=== PATIENT | female | born 1970 | race African-American/Black ===

== ENCOUNTER 2018-06-03 01:32 | Inpatient (IN) | payer OTHER ==
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
[~2018-06-03] VITALS: Ht 165.1 cm; Wt 98.0 kg
[~2018-06-03 01:32] MED LIST: TYLENOL ER PO; VENTOLIN HFA18 GM INH
--- NOTE | 2018-06-03 10:03 | Operative Report ---
Operative/Inv Procedure Report Surgery Date: 06/03/18 Name of Procedure: Anterior cervical C5 6 C6 7 discectomy. Interbody fusion with interdiscal cage and autologous iliac crest bone graft. Anterior plate fusion C5 to C7. Harvesting left anterior iliac crest structural bone graft. Reconstruction of graft site with Master graft. Use of fluoroscopy. Pre-Operative Diagnosis: HNP C5 6 C6 7 with degenerative disc disease. Post-Operative Diagnosis: Same osteoporosis. Estimated Blood Loss: scant Surgeon/Senior Technical Editor: Demetrius CURTIS,Mayela Villegas Anesthesia: general endotracheal tube Operative/Procedure Note Note: After adequate general anesthesia was achieved the patient was placed in the supine position with the head turned to the left and the shoulders taped to the side. The left anterior iliac crest and right side of the neck were sterilely prepped and draped. An incision was made in line with the skin crease and carried sharply through the platysma. A blunt dissection was carried medial to the neurovascular bundle lateral to the visceral structures the esophagus was identified in the deep retractors were placed. A bent needle was placed within the C5 6 disc space and fluoroscopy was used to identify surgical level. There was bone spurring consistent with severe degenerative disc disease. The high- speed bur was used to debride the bone spurs the disc was entered sharply with the scalpel and debrided with the curettes and Kerrisons. The disc retractor was placed during discectomy at each level the dissection was carried through the annulus and posterior longitudinal ligament degenerative encroaching disc and bone and soft tissue was debrided of the nerve roots on the right side which was the symptomatic side at both levels. Scissures made over the left anterior iliac crest a subperiosteal dissection was carried medial and lateral to the crest and the oscillating saw was used to collect 2 Quintero-Jones tricortical grafts. The endplates of the C5 6 and C6 7 vertebral were debrided with the high-speed bur and irrigation trials were used and 7 mm cage was selected cages were packed with iliac crest bone graft and tamped into position well away from the neural canal. An anterior plate was applied with reasonable purchase and all 6 screws which were checked in AP and lateral plane with fluoroscopy found to be appropriate and locked. During harvesting of the bone graft osteoporosis was identified. The wound was irrigated a closure the platysma was performed with absorbable suture as was the skin with subcuticular absorbable suture after which sterile dressings were applied and a cervical collar.
--- NOTE | 2018-06-03 11:03 | Patient Discharge Instructions ---
Acute Coronary Syndrome Inclusion Criteria At DC or during hospital stay patient has or had the following: ACS DIAGNOSIS No Discharge Core Measures Meds if any: Prescribed or Continued at Discharge Meds if any: NOT Prescribed or Continued at Discharge Congestive Heart Failure Inclusion Criteria At DC or during hospital stay patient has or had the following: CHF DIAGNOSIS No Discharge Core Measures Meds if any: Prescribed or Continued at Discharge Meds if any: NOT Prescribed or Continued at Discharge Cerebrovascular accident Inclusion Criteria At DC or during hospital stay patient has or had the following: CVA/TIA Diagnosis No Discharge Core Measures Meds if any: Prescribed or Continued at Discharge Meds if any: NOT Prescribed or Continued at Discharge Venous thromboembolism Inclusion Criteria VTE Diagnosis No VTE Type NONE VTE Confirmed by (Test) NONE Discharge Core Measures - Per Current guidelines, there needs to be overlap - treatment for the first 5 days of Warfarin therapy. - If discharged on Warfarin prior to 5 days of - overlap therapy, the patient will need to be - assessed for post discharge needs including - *Post discharge parental anticoagulation - *Warfarin and/or parental anticoagulation education - *Follow up date to check INR post discharge At least 5 days overlap therapy as Inpatient No Meds if any: Prescribed or Continued at Discharge Note: Overlap Therapy is Warfarin and Anticoagulant Meds if any: NOT Prescribed or Continued at Discharge
[2018-06-03] MEDS ORDERED: MILK OF MA400 MG/52 PO (11:07)
[2018-06-03] MEDS ORDERED: OS-CAL 500+D31 EAC1 PO (11:07)
[2018-06-03] MEDS ORDERED: MULTIVITAMINS1 EAC9 PO (11:07)
[2018-06-03] MEDS ORDERED: DULCOLAX10 M1 RC (11:07)
[2018-06-03] MEDS ORDERED: COLACE100 M1 PO (11:07)
[2018-06-03] MEDS ORDERED: VITAMIN D31000 UNI2 PO (11:07)
[2018-06-03] MEDS ORDERED: TYLENOL EXTRA500 M2 PO (11:07)
[2018-06-03] MEDS ORDERED: PERCOCET 5-3251 EACH PO (11:07)
[2018-06-03 14:00] VITALS: BP 132/92
--- NOTE | 2018-06-03 14:36 | RADIOLOGY REPORT ---
EXAMINATION: FLUOROSCOPY CERVICAL SPINE IN OPERATING ROOM. CLINICAL INFORMATION: Anterior cervical disc C5-C7 fusion. COMPARISON: MRI of the cervical spine 06/02/2018. TECHNIQUE: Fluoroscopy was provided in the operating room. Intraoperative spot views were obtained of the cervical spine in AP, oblique, and lateral projections. NUMBER OF FLUOROSCOPIC IMAGES: 4 images. FLUOROSCOPY TIME: 0.1 minutes. DOSE: 5.12 mGy; 0.166 mGym2 FINDINGS AND IMPRESSION: There is a needle probe on the second spot view projected at the anterior margin of the C5-C6 interspace. The next 2 films demonstrate an anterior plate and screws fusing C5-C7.
--- NOTE | 2018-06-03 15:06 | PN- Student ---
Claribel Chavira 06/03/18 8664: Subjective Subjective: Pt is complaining of a sore throat and the urge to cough without being able to. She is able to swallow well and has not had any new medications or foods that she is aware of. She is in mild pain at the moment but is doing well. She has gotten out of bed and walked a few steps to use the bathroom. She denies having any issues going to the bathroom. Was lightheaded earlier but it has since resolved. Denies any CP, palpitations, n/v, headache or worsenging numbness and tingling. Objective Objective: Vitals: 95% of 2 L NC, Pulse 86 bpm, BP: 134/86 mmHG, RR: 18 General: Middle aged woman, lying in bed, nasula canula and cervical collar in place, NAD. Cardio: Regular rate and rhythm. S1 and S2 appreciated. No murmurs, rubs or gallops. Pulmonary: Symmetric rise and fall of the chest. Breath sounds heard in anterior , posterior and lateral lung taylor with no wheezes, rhonchi, or rales. Abdomen: Soft, non-distended, non-tender. No rebound tenderness or guarding. Normoactive bowel sounds. Extremities: Sensation grossly intact and equal in the bilateral upper and lower extremities. 5/5 poultry farmer strength. Radial, dorsalis pedis and posterior tibialis pulses palpable. 5/5 plantar flexion. 3/5 dorsiflexion. Bilateral calves are soft and non-tender. ALPs device in place. Results Results: Laboratory Tests 06/03/18 0616: Urine Test NEGATIVE Assessment/Plan Assessment: A: Pt is a 46 year old female POD#0 s/p anterior cervical decompression and fusion C5-C7 with instrumentation and iliac crest bone grafting, with a pmh including asthma and anxiety. Pt is anxious after surgery and throat is most likely irritated secondary to intubation. Lungs are clear and heart rate is normal. Post-operative pain is well controlled. Plan: P: Continue to monitor and control pain as needed. Complete the remaining doses of clindamycin. IV LR running. Advance the diet as tolerated. PT to see patient in morning. Cervical collar in place for comfort. Continue home medications. ALPs in place for DVT prophylaxis. Severiano Mccullough 06/03/18 2832: Assessment/Plan Assessment: Seen and evaluated with PA-S. Agree with above. Patient complaining of swollen throat, she is tolerating solids/liquids, denies taking any new medication or new food. On exam, vss, she appears anxious, cervical soft collar in place, dressing c/d/i, no hematoma noted, no facial swelling/rash noted, oropharynx without edema or erythema, no wheezing, lungs clear. S/p C5-7 ACDF c/o throat swelling likely due to intubation, no signs of anaphylaxsis or esophgeal rupture at this time. Cont supportive care, pain regimen prn, postop abx - clinda, PT eval in am and alps for dvt ppx.
[2018-06-03 17:42] VITALS: BP 132/88
[2018-06-03 19:00] VITALS: BP 135/75
[2018-06-03 22:58] VITALS: BP 154/86
[2018-06-03 23:50] VITALS: BP 116/70
[2018-06-04 03:00] VITALS: BP 136/76
[2018-06-04 03:49] VITALS: BP 120/76
[2018-06-04 07:00] VITALS: BP 132/82
--- NOTE | 2018-06-04 12:08 | Surg Short-stay <48hrs Dis Sum ---
Visit Information Visit Dates Admission Date: 06/03/18 Discharge Date: 06/04/18 Surgical Short Stay DC Summary Admission Diagnosis: HNP C5 6 C6 7 with degenerative disc disease. Final Diagnosis: HNP C5 6 C6 7 with degenerative disc disease. Procedure(s): Anterior cervical C5 6 C6 7 discectomy. Interbody fusion with interdiscal cage and autologous iliac crest bone graft. Anterior plate fusion C5 to C7. Harvesting left anterior iliac crest structural bone graft. Reconstruction of graft site with Master graft. Use of fluoroscopy. Summary/Significant Findings: Ms. Bejarano is a 40-year-old female who was taken to the operating room on 2017 for cervical herniation and degeneration, and underwent cervical fusion with iliac crest bone graft she tolerated procedure well and she was transferred to the floor. She was out of bed with assistance postop day 1 and was tolerating diet and pain was controlled with p.o. pain medication. At the time of discharge she was stable and soft collar with no major complaints. Condition at Discharge: Stable Discharge Disposition: home health services Discharge instructions provided to patient/family: Yes Post discharge follow-up plan: Follow-up with Dr. Romo Copies to: Bakari Romo MD
== END 2018-06-04 15:24 | DRG 473 ==
LOC: SDA 01:32 → ENRESERV 10:41 → ENTRNSPT 12:08 → EDTRNSPTSTS 12:11 → EDTRNSPT 12:12 → 2NB 12:18 → CMPTRNSPT 12:37 → ENPENDDIS 06-04 12:38 → 2NB 06-04 15:24
PROC: 0RG20A0 Fusion of 2 or more Cervical Vertebral Joints with Interbody Fusion Device, Anterior Approach, Anterior Column, Open Approach (ICD-10-PCS; principal; 2018-06-03)
PROC: 0RG2070 Fusion of 2 or more Cervical Vertebral Joints with Autologous Tissue Substitute, Anterior Approach, Anterior Column, Open Approach (ICD-10-PCS; principal; 2018-06-03)
PROC: 0RB30ZZ Excision of Cervical Vertebral Disc, Open Approach (ICD-10-PCS; principal; 2018-06-03)
PROC: 07DR3ZZ Extraction of Iliac Bone Marrow, Percutaneous Approach (ICD-10-PCS; principal; 2018-06-03)
DX: M50.223 Other cervical disc displacement at C6-C7 level (principal); Z88.0 Allergy status to penicillin; Z88.8 Allergy status to other drugs, medicaments and biological substances; Z91.048 Other nonmedicinal substance allergy status; J45.909 Unspecified asthma, uncomplicated; F32.9 Major depressive disorder, single episode, unspecified; G47.00 Insomnia, unspecified; M79.7 Fibromyalgia
CPT/HCPCS: 2NBSP; 36415; 76000; 81025; C1713; J0131; J2405; J3250; J3490; J7120

== ENCOUNTER 2018-06-06 14:49 | Inpatient (IN) | payer OTHER ==
[~2018-06-06] VITALS: Ht 165.1 cm; Wt 103.0 kg
[~2018-06-06 14:49] MED LIST changes: +COLACE100 M1 PO; +DULCOLAX10 M1 RC; +MILK OF MA400 MG/52 PO; +MULTIVITAMINS1 EAC9 PO; +OS-CAL 500+D31 EAC1 PO; +PERCOCET 5-3251 EACH PO; +TYLENOL EXTRA500 M2 PO; +VITAMIN D31000 UNI2 PO
--- NOTE | 2018-06-06 15:13 | ED GENERAL ADULT ---
History of Present Illness General Chief Complaint: General Adult Stated Complaint: BIBA SWELLING/LEG PAIN S/P SURGERY Source: patient, family, old records Exam Limitations: no limitations Vital Signs & Intake/Output Vital Signs & Intake/Output Vital Signs Date Time Temp Pulse Resp B/P B/P Pulse O2 O2 Flow FiO2 Mean Ox Delivery Rate 06/06 1717 98.8 98 16 124/73 95 Room Air 06/06 1514 Room Air Room Air 06/06 1454 98.7 124 26 176/102 97 Room Air Room Air Allergies Coded Allergies: Penicillins (Severe, anaphylaxis 06/06/18) nut - unspecified (Severe, ANAPHYLAXIS 06/06/18) pineapple (Severe, anaphylaxis 06/06/18) Uncoded Allergies: chlorine (Severe, anaphylaxis 05/03/18) Reconcile Medications Acetaminophen (Tylenol Extra Strength) 500 MG TABLET 1 TAB PO TID PRN TEMP>101 Albuterol Sulfate (Ventolin Hfa) 90 MCG HFA.AER.AD 2 PUF INH Q4-6 PRN PRN ASTHMA (Reported) Bisacodyl (Dulcolax) 10 MG SUPP.RECT 1 SUP RC DAILY PRN CONSTIPATION Calcium Carbonate/Vitamin D3 (Os-Oliver 500+D3 Caplet) 500 MG-200 TABLET 1 TAB PO BID [facility] Cholecalciferol (Vitamin D3) 1,000 UNIT TABLET 1 TAB PO DAILY BONE HEALTH Docusate Sodium (Colace) 100 MG CAPSULE 1 CAP PO BID PRN CONSTIPATION Magnesium Hydroxide (Milk Of Magnesia) 400 MG/5 ML ORAL.SUSP 5 ML PO Q8P PRN CONSTIPATION Multiple Vitamin (Multivitamins) 1 EACH TABLET 1 TAB PO DAILY GENERAL HEALTH Oxycodone HCl/Acetaminophen (Percocet 5-325 MG Tablet) 5 MG-325 MG TABLET 1-2 TAB PO Q4-6 PRN PAIN Triage Note: TRIAGE: 48 Y/O FEMALE RECENTLY TO [facility] FOR SPINAL SURGERY ON 06/03/2018. PATIENT REPORTS THAT SHE WAS SEATED AND FELT 10/10 PAIN TO LEFT THIGH, LEFT HIP REGION. PT ARRIVED IN SOFT CERVICAL COLLAR. AFEBRILE. Triage Nurses Notes Reviewed? yes HPI: Patient had a recent cervical fusion using bone graft from her left issue crest. Patient states that this morning she was laying in bed when she felt something pop and had a sudden onset of pain in her left lateral hip. The pain radiates down into the upper thigh. The pain increases with movement. There are no fevers or chills. The pain is throbbing and is 10 out of 10. Patient took an oxycodone without any relief. There are no fevers or chills. There is no drainage from the incisional site. (Jame CURTIS,Annika Wadsworth) Past History Travel History Traveled to [place] past 21 day No Medical History Any Pertinent Medical History? 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 MOTHER (2 CVA'SDIABETES). Age 67. FATHER (ALCOHOL DEPENDENCE). Age 68. GRANDMOTHER (DIABETESCOPD). Age 89. 2 BROTHERS (ALIVE AND WELL). Hx Contributory? No (Jame CURTIS,Annika Wadsworth) Review of Systems Review of Systems Constitutional: Reports: no symptoms. Respiratory: Reports: no symptoms. Cardiovascular: Reports: no symptoms. Musculoskeletal: Reports: see HPI, joint pain. Neurological/Psychological: Reports: no symptoms. Immunologic/Allergic: Reports: no symptoms. (Jame CURTIS,Annika Wadsworth) Physical Exam Physical Exam General Appearance: well developed/nourished, alert, awake, anxious, moderate distress Head: atraumatic Eyes: Bilateral: PERRL, EOMI. Respiratory: normal breath sounds, chest non-tender, no respiratory distress, lungs clear Cardiovascular: regular rate/rhythm, normal peripheral pulses Extremities: pedal edema, INCISION C/D/I Neurologic/Psych: no motor/sensory deficits, awake, alert, oriented x 3, normal gait, normal mood/affect Skin: intact, normal color, warm/dry Core Measures ACS in differential dx? No CVA/TIA Diagnosis: No Sepsis Present: No Sepsis Focused Exam Completed? No (Annika Kilgore MD) Progress Differential Diagnoses I considered the following diagnoses in my evaluation of the patient: [Tendon injury, infection, seroma, muscle spasm] Plan of Care: Orders Procedure Date/time Status Regular Diet 06/07 B Active OXYGEN SETUP (GEN) 06/06 1923 Active Saline Lock 06/[address] in observation 06/06 1923 Active Vital Signs 06/06 1923 Active Activity/Ambulation 06/06 1923 Active Code Status 06/06 1923 Active COMPREHENSIVE METABOLIC PANEL 06/06 1513 Complete CBC WITHOUT DIFFERENTIAL 06/06 1513 Complete Laboratory Tests 06/06/18 1624: Anion Gap 7, Estimated GFR > 60, BUN/Creatinine Ratio 16.7, Glucose 144 H, Calcium 9.4, Total Bilirubin 0.7, AST 22, ALT 33, Alkaline Phosphatase 78, Total Protein 7.0, Albumin 3.8, Globulin 3.2, Albumin/Globulin Ratio 1.2, CBC w Diff NO MAN DIFF REQ, RBC 4.45, MCV 87.8, MCH 29.2, MCHC 33.3, RDW 14.1, MPV 8.9, Gran % 79.0 H, Lymphocytes % 14.4 L, Monocytes % 5.5, Eosinophils % 0.4, Basophils % 0.7, Absolute Granulocytes 5.7, Absolute Lymphocytes 1.0 L, Absolute Monocytes 0.4, Absolute Eosinophils 0, Absolute Basophils 0.1 Diagnostic Imaging: Viewed by Me: CT Scan. Discussed w/RAD: CT Scan. Radiology Impression: PATIENT: LORE MURCIA PRESENT AGE: 48 PATIENT ACCOUNT NO: [id number] : 70 LOCATION: [facility] ORDERING PHYSICIAN: Annika Kilgore MD SERVICE DATE: 06/06/18 EXAM TYPE: CAT - CT PELVIS WO IV CONTRAST EXAMINATION: CT PELVIS WITHOUT CONTRAST CLINICAL INFORMATION: Status post bone graft from left pelvis for cervical spine surgery. Patient felt pop and pain. COMPARISON: None TECHNIQUE: Helical scanning was performed with submillimeter collimation through the pelvis. Sagittal and coronal multiplanar 2-D reconstructions were obtained. DLP: 1079 mGy-cm FINDINGS : There are postsurgical changes in the soft tissues of the anterolateral left pelvis extending to the anterior aspect of the iliac crest, where there is ill- defined calcific density presumably representing residual bone/marrow at the site of the bone graft harvest. The anterior-inferior iliac spine is slightly displaced distally, correlate with the surgical procedure. Given the clinical history, it is possible that the anterior-superior iliac spine was avulsed and retracted by the sartorius insertion. There are no additional soft tissue abnormalities. There is [id number] bilateral hip osteoarthritis with prominent osteophytes along the acetabular rim and anterosuperior os acetabuli. IMPRESSION: Postsurgical changes in the region of the right anterior-superior iliac crest. The anterior-superior iliac spine is inferiorly displaced, presumably retracted by the sartorius origin, which may account for the clinical history. Correlate with the surgical procedure. 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 <Electronically signed in Other Vendor System> SIGNED BY: Keven Rojas MD 06/06/18 1556 Initial ED EKG: none Hand-Off Endorsed To: Brandon Tabor MD Endorsed Time: 1914 Pending: consult (Annika Kilgore MD) Departure Departure Disposition: STILL A PATIENT Condition: Stable Clinical Impression Primary Impression: Avulsion fracture Referrals: Unknown (PCP/Family) Departure Forms: Customer Survey General Discharge Information (Annika Kilgore MD) Observation Note Spoke With: Rehan Fox MD Physician Advisor Notified: ANNIKA KILGORE MD Place Patient In: Non-ED OBS Care Area Rationale for Observation: My rational for observation is as follows analgesia physical therapy orthopedic evaluation continuing care discharge planning ensure safety. (Brandon Tabor MD) Critical Care Note Critical Care Note Critical Care Time: non-applicable (Annika Kilgore MD)
--- NOTE | 2018-06-06 15:56 | CT SCAN REPORT ---
EXAMINATION: CT PELVIS WITHOUT CONTRAST CLINICAL INFORMATION: Status post bone graft from left pelvis for cervical spine surgery. Patient felt pop and pain. COMPARISON: None TECHNIQUE: Helical scanning was performed with submillimeter collimation through the pelvis. Sagittal and coronal multiplanar 2-D reconstructions were obtained. DLP: 1079 mGy-cm FINDINGS: There are postsurgical changes in the soft tissues of the anterolateral left pelvis extending to the anterior aspect of the iliac crest, where there is ill-defined calcific density presumably representing residual bone/marrow at the site of the bone graft harvest. The anterior-inferior iliac spine is slightly displaced distally, correlate with the surgical procedure. Given the clinical history, it is possible that the anterior-superior iliac spine was avulsed and retracted by the sartorius insertion. There are no additional soft tissue abnormalities. There is [id number] bilateral hip osteoarthritis with prominent osteophytes along the acetabular rim and anterosuperior os acetabuli. IMPRESSION: Postsurgical changes in the region of the right anterior-superior iliac crest. The anterior-superior iliac spine is inferiorly displaced, presumably retracted by the sartorius origin, which may account for the clinical history. Correlate with the surgical procedure.
[2018-06-06 16:30] LABS: ABSOLUTE BASOPHIL COUNT 0.1 /CUMM (0.0-0.2); ABSOLUTE EOSINOPHIL COUNT 0 /CUMM (0.0-0.7); ABSOLUTE GRANULOCYTE CT 5.7 /CUMM (1.4-6.5); ABSOLUTE MONOCYTE COUNT 0.4 /CUMM (0.10-0.60); BASOPHIL % 0.7 % (0.0-2.0); EOSINOPHIL % 0.4 % (0-5); HEMATOCRIT 39.1 % (37-47); MEAN CORPUSCULAR HGB 29.2 PG (27.0-31.0); MEAN CORPUSCULAR HGB CONC 33.3 G/DL (33.0-37.0); MEAN CORPUSCULAR VOLUME 87.8 FL (81.0-99.0); MEAN PLATELET VOLUME 8.9 FL (7.4-10.4); PLATELET COUNT 261 /CUMM (130-400); RBC DISTRIBUTION WIDTH 14.1 % (11.5-14.5); RED BLOOD CELL CT 4.45 /CUMM (4.20-5.40); WHITE BLOOD CELL COUNT 7.2 /CUMM (4.8-10.8)
--- NOTE | 2018-06-06 20:11 | History & Physical ---
BravoGabriela 06/06/182009: General Information and HPI MD Statement: I have seen and personally examined LORE MURCIA and documented this H&P. The patient is a 48 year old F who presented with a patient stated chief complaint of [left flank and thigh pain]. Source of Information: patient Exam Limitations: no limitations History of Present Illness: 48-year-old female with a past medical history of asthma, disc herniations, degenerative joint disease, spinal stenosis, fibromyalgia, diabetes mellitus?, Osteoarthritis, recent anterior cervical decompression and fusion surgery of C5- C7 and iliac crest bone harvesting done on June 03, 2018, was brought in by ambulance for left flank and thigh pain 1 day. The patient was doing fine after her cervical spine surgery and left iliac crest bone harvesting done on June 03, 2018. She was bathing and walking with a walker; Until this morning when she suddenly heard a pop in her left flank/left hip/left thigh associated with a 15/10 sharp pain. Pain was not relieved by Percocet, worse with movement. After the onset of pain she was able to walk a few steps, she felt like her whole leg was numb. On review of systems: Constipation not relieved by MiraLAX, cough 1 day associated with small amount of whitish phlegm, numbness and tingling on the surgical area since the of surgery. She does complain of increased urinary frequency and leaking today. She denies pain in her neck after cervical spine surgery, fever chills, nausea, vomiting, chest pain, shortness of breath, diarrhea, dysuria, hematuria, abdominal pain, changes in vision or hearing. Allergies/Medications Allergies: Coded Allergies: Penicillins (Severe, anaphylaxis 06/06/18) nut - unspecified (Severe, ANAPHYLAXIS 06/06/18) pineapple (Severe, anaphylaxis 06/06/18) Uncoded Allergies: chlorine (Severe, anaphylaxis 05/03/18) Home Med list Acetaminophen (Tylenol Extra Strength) 500 MG TABLET 1 TAB PO TID PRN TEMP>101 Albuterol Sulfate (Ventolin Hfa) 90 MCG HFA.AER.AD 2 PUF INH Q4-6 PRN PRN ASTHMA (Reported) Bisacodyl (Dulcolax) 10 MG SUPP.RECT 1 SUP RC DAILY PRN CONSTIPATION Calcium Carbonate/Vitamin D3 (Os-Oliver 500+D3 Caplet) 500 MG-200 TABLET 1 TAB PO BID BONE HEALTH Cholecalciferol (Vitamin D3) 1,000 UNIT TABLET 1 TAB PO DAILY BONE HEALTH Docusate Sodium (Colace) 100 MG CAPSULE 1 CAP PO BID PRN CONSTIPATION Magnesium Hydroxide (Milk Of Magnesia) 400 MG/5 ML ORAL.SUSP 5 ML PO Q8P PRN CONSTIPATION Multiple Vitamin (Multivitamins) 1 EACH TABLET 1 TAB PO DAILY GENERAL HEALTH Oxycodone HCl/Acetaminophen (Percocet 5-325 MG Tablet) 5 MG-325 MG TABLET 1-2 TAB PO Q4-6 PRN PAIN Observation Initial Note - I have personally examined LORE MURCIA on 06/06/18 at 2014. The disposition of LORE MURCIA is uncertain at this time and before a determination can be made, she requires a period of observation for the following reasons [left hip and thigh pain after surgical procedure] Past History Travel History Traveled to [place] past 21 day No Medical History Neurological: dizziness EENT: allergies, rhinitis Cardiovascular: NONE Respiratory: asthma Gastrointestinal: NONE Hepatic: NONE Renal: NONE Musculoskeletal: disk herniation, degen joint disease, fibromyalgia, osteoarthritis, spinal stenosis Psychiatric: depression, insomnia Endocrine: obesity Blood Disorders: NONE Cancer(s): NONE 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 MOTHER (2 CVA'SDIABETES). Age 67. FATHER (ALCOHOL DEPENDENCE). Age 68. GRANDMOTHER (DIABETESCOPD). Age 89. 2 BROTHERS (ALIVE AND WELL). Psychosocial History Where do you live? Home Who Do You Live With? self Services at Home: None Primary Language: [place] Smoking Status: Never Smoked ETOH Use: denies use Illicit Drug Use: denies illicit drug use Review of Systems Review of Systems Constitutional: Reports: see HPI. EENTM: Reports: ear pain. Denies: blurred vision, double vision, visual changes, eye pain, eye drainage, eye tearing, icterus, ear discharge, ear redness, hearing changes, nasal congestion, epistaxis, nasal pain, throat pain, throat swelling, mouth pain, tooth pain. Cardiovascular: Reports: no symptoms. Respiratory: Reports: no symptoms. GI: Reports: see HPI. Genitourinary: Reports: see HPI. Musculoskeletal: Reports: see HPI. Skin: Reports: no symptoms. Neurological/Psychological: Reports: numbness, tingling. Hematologic/Endocrine: Reports: polyuria. Denies: bruising, bleeding, polydipsia, other. Immunologic/Allergic: Reports: no symptoms. All Other Systems: Reviewed and Negative Exam & Diagnostic Data Last 24 Hrs of Vital Signs/I&O Vital Signs Date Time Temp Pulse Resp B/P B/P Pulse O2 O2 Flow FiO2 Mean Ox Delivery Rate 06/06 2241 99.0 90 18 140/90 96 06/06 2104 99.2 06/06 2058 99.2 96 18 119/73 97 Room Air 06/06 1717 98.8 98 16 124/73 95 Room Air 06/06 1514 Room Air Room Air 06/06 1454 98.7 124 26 176/102 97 Room Air Room Air Intake & Output 06/07 0800 06/07 0000 06/06 1600 Intake Total Output Total Balance Patient 216 lb 216 lb Weight Weight Reported by Patient Measurement Method Physical Exam General Appearance Alert, Oriented X3, Cooperative, No Acute Distress Skin No Rashes, No Breakdown, No Significant Lesion Skin Temp/Moisture Exam: Cool/Dry Sepsis Skin Exam (color): Normal for Ethnicity HEENT Atraumatic, PERRLA, EOMI, dry mucous memebranes Neck Supple, No JVD, No thryomegaly, +2 Carotid Pulse wo Bruit, No LAD Lymphatic Cervical nl Cardiovascular Regular Rate, Normal S1, Normal S2, No Murmurs Lungs Clear to Auscultation, Normal Air Movement Abdomen Normal Bowel Sounds, Soft, No Hepatospenomegaly, No Masses, tenderness, left iliac fossa Neurological Normal Speech, Strength at 5/5 X4 Ext, Normal Tone, Sensation Intact, Cranial Nerves 3-12 NL, reports holistic health practitioner sensation on rt arm & leg Extremities No Clubbing, No Cyanosis, No Edema, Normal Pulses, No Tenderness/ Swelling Vascular Normal Pulses, Pulses Symmetrical Assessment/Plan Assessment: 48-year-old female with a past medical history of asthma, disc herniations, degenerative joint disease, spinal stenosis, fibromyalgia, diabetes mellitus?, Osteoarthritis, recent anterior cervical decompression and fusion surgery of C5- C7 and iliac crest bone harvesting done on June 03, 2018, was brought in by ambulance for left flank and thigh pain 1 day. Vitals: Temp 99, pulse 90, respiratory rate 18, blood pressure 140/90, 96% on room air. Labs: WBC 7.0, RBC 4.45, hematocrit 39.1, hemoglobin 13, sodium 138, potassium 4.0, chloride 101, BUN 10, creatinine 0.6, glucose 144 Problems: 1.left flank/thigh pain 2.urinary frequency/incontinence Assessment and plan: 1.left flank/thigh pain after surgery: CT scan showed Postsurgical changes in the region of the right anterior-superior iliac crest. The anterior-superior iliac spine is inferiorly displaced, presumably retracted by the sartorius origin, which may account for the clinical history. -Keep in observation on the general medical floor -Pain control, following pain pathway. Of note she is allergic to narcotics nausea and vomiting 2.urinary frequency/incontinence: Patient reports frequent urination/dribbling of her urine. -Ordered a urinalysis -Knight's catheter inserted Diet: Regular DVT prophylaxis: Subcu heparin and Alps CODE STATUS: Full code As Ranked By This Provider Problem List: 1. Lower extremity pain, left Core Measures/Misc (06/20) Acute Coronary Syndrome ACS Diagnosis: No Congestive Heart Failure Congestive Heart Failure Diagnosis No Cerebrovascular Accident CVA/TIA Diagnosis: No VTE (View Protocol) VTE Risk Factors Age>40 No Mechanical VTE Prophylaxis d/t N/A MechProphylax Ordered No VTE Pharm Prophylaxis d/t NA PharmProphylax ordered Sepsis (View protocol) Sepsis Present: No If YES complete Sepsis Event Note If YES complete Sepsis Event Note Rehan Fox 06/06/182123: Core Measures/Misc (06/20) Sepsis (View protocol) If YES complete Sepsis Event Note If YES complete Sepsis Event Note Attending MD Review Statement Attending Statement Attending Assessment/Plan: Addendum by Dr. Carrera. patient was seen and examined at bedside in ER around 9pm. I reviewed the H&P note done by resident. Reviewed PMH, HF, Social history. ROS: all other systems are reviewed and negative except as described above. Patient says she was able to walk with minimal difficulty. she has bone graft harvested from left iliac crest on last for her C spine surgery. this afternoon she heard of popping sound on left side of the pelvis and lower back, followed by excrusiating pain in left leg. she was not able to move her leg due to pain. also has some numbness as well. she also complained that she was not able recognise whether she is done urinating or not once initiated. she aslo complainted no BM since the surgery. reviewed the vital, PE per resident note. Addendum by . Patient was seen and examined at bedside today ( ) at .. Reviewed the history physical done by the resident. Reviewed the past medical family, family, social history. ROS: 10 point system reviewed and negative except as described above. Alert awake oriented 3 has pain in left thigh and pelvic area with minimal movement of the leg, has dressing in place at the surgica site. power coud not assessed due to pain, but normal tone, normal sensation on both the legs, has slighly increased DTR on left leg. rest of the exam per resident note. labs reviewed, CT pelvis reivewed: A/p: # intractable pain in left thihg area, CT scans shows anterior-inferior iliac spine is slightly displaced distally likely from sartorius muscle spasm, no fracture noted, changed at iliac crest surgery present. give oxycodene for pain, give flexeril for muscle relaxation, use prin iv toradol for breakthrough pain. consult her orthopedician- dr. Romo ([phone]). # c- spine problem ?radiculopathy. on soft c collar, c/w supportive care, pt says she has scheduled surgery this week, ortho to follow, #constipation: no bm in last 5 days, give bid miralax, if pain is better, try suppository and enema as needed if no BM, - dvtepx: give sc heparin tid as not moving her left leg much. Reviewed with the resident. Agree with the rest of the plan as per resident's note. Dr.Ravinder Debi MD. Hospitalist. Pager: [phone], cell: [phone]. - Nicholas CURTIS,Malachi 06/07/18 0052: Core Measures/Misc (06/20) Sepsis (View protocol) If YES complete Sepsis Event Note If YES complete Sepsis Event Note Resident Review Statement Resident Statement: examined this patient, discussed with international logistics analyst, reviewed EMR data (avail) Other Findings: 48 yo F with PMH of asthma, fibromyalgia, OA, depression presented to the ED for evaluation of sudden onset of left lower extremity pain. Around 4 days ago (06/03), the patient underwent anterior cervical C5-C7 discectomy with autologous iliac crest bone graft. Postoperatively, she had been doing well, ambulating normally and ADLs without any complaints. Earlier today she was sitting in her chair and pulled her left leg towards her when she suddenly felt a pop followed by excrutiating pain in her left thigh. She describes her pain as sharp/ throbbing, radiating down to her leg, 10/10 in severity with numbess of her leg. She was able to walk a few steps with significant difficulty. EMS were called. While attempting to lift her off her chair her pain was exacerbated. She took percocet at home without any significant relief. In the ER she was given another Percocet with Valium which she states helped with her pain. She mentions having signifcant constipation with her last BM prior to surgery. States that last night she was having significant cough which was causing pain in her surgical site in neck and left leg. States not being on any daily home medications. ROS: as above General Appearance: well developed/nourished, moderate distress Head: atraumatic, normal appearance Eyes: Bilateral: normal appearance, PERRL Ears, Nose, Throat: normal hearing and speech. No sinus tenderness Respiratory: normal breath sounds, chest non-tender, no respiratory distress Cardiovascular: regular rate/rhythm, normal S1 and S2, no M/R/G Gastrointestinal: soft, non-tender Extremities: no edema, signifcant pain of LLE with minimal movement. Neurologic/Psych: awake, alert, oriented x 3, normal mood/affect, decreased sensation on right side, unable to assess power Skin: intact, normal color, warm/dry Assessment: 1. Intractable Lower Extremity Pain 2. History of Cervical degerative disc disease s/p discectomy Plan: * Admit patient to general medicine floor in obs * Her CT scan shows the anterior-superior iliac spine inferiorly displaced which may causing her symptoms. * Orthopedic evaluation in am. Would consult Dr Romo, her surgeon. * Continue with cervical collar pending above. * Pain control with Tylenol, Percocet and Flexeril. Use Toradol for severe pain. Would avoid morphine as the patient states she is unable to tolerate it. * Diet: Regular * DVT Prophylaxis: SC Lovenox * Code: Full Code
[2018-06-06 22:41] VITALS: BP 140/90
[2018-06-07 06:33] VITALS: BP 122/80
--- NOTE | 2018-06-07 07:04 | PN- Housestaff ---
See Addendum Subjective Follow-up For: S/p anterior cervical discectomy C5-7 with instrumentation and left illiac crest bone graft Left illiac crest/thigh pain Subjective: Pt seen and examined this am. Wearing soft neck collar. She states feeling no pain when she stays still, but does feel pain that worsens with slight movement in left iliac crest. She is afebrile, VS are stable. She denies chest pain, SOB, N/V. Pain is under control with current pain management. Review of Systems Constitutional: Reports: see HPI. Objective Last 24 Hrs of Vital Signs/I&O Vital Signs Date Time Temp Pulse Resp B/P B/P Pulse O2 O2 Flow FiO2 Mean Ox Delivery Rate 06/07 1150 98.4 91 20 120/86 96 06/07 0800 Room Air 06/07 0633 98.8 90 18 122/80 95 Room Air 06/06 2241 99.0 90 18 140/90 96 06/06 2104 99.2 06/06 2058 99.2 96 18 119/73 97 Room Air 06/06 1717 98.8 98 16 124/73 95 Room Air 06/06 1514 Room Air Room Air 06/06 1454 98.7 124 26 176/102 97 Room Air Room Air Intake & Output 06/07 1600 06/07 0800 06/07 0000 Intake Total 220 100 Output Total 150 750 250 Balance -150 -530 -150 Intake, IV 20 Intake, Oral 200 100 Output, Urine 150 750 250 Patient 216 lb Weight Physical Exam General Appearance: Alert, Oriented X3, Cooperative, Mild Distress HEENT: Atraumatic Neck: Soft neck collar noted. Cardiovascular: Regular Rate, Normal S1, Normal S2 Lungs: Clear to Auscultation Abdomen: Normal Bowel Sounds, Soft, No Tenderness Neurological: Normal Speech Extremities: No Edema, Noted ROM impairment due to pain on the left side. Current Medications: Current Medications Sig/Samina Start time Last Medication Dose Route Stop Time Status Admin Acetaminophen 0 .STK-MED ONE 06/06 2205 DC PO Acetaminophen 650 MG Q6P PRN 06/06 2015 AC 06/06 PO 2205 Acetaminophen 0 .STK-MED ONE 06/06 1638 DC IV Acetaminophen 1,000 MG ONCE ONE 06/06 1515 DC 06/06 N/A 1 UNIT IV 06/06 1529 1643 Benzocaine/Menthol 1 PAOLO Q2P PRN 06/06 2300 AC 06/07 PO 0837 Bisacodyl 10 MG DAILY PRN 06/07 1130 AC MI Cyclobenzaprine HCl 0 .STK-MED ONE 06/06 2307 DC PO Cyclobenzaprine HCl 5 MG TID PRN 06/06 2215 AC PO Cyclobenzaprine HCl 5 MG ONCE ONE 06/06 2215 DC 06/06 PO 06/06 2216 2308 Diazepam 0 .STK-MED ONE 06/06 1532 DC PO Diazepam 5 MG ONCE ONE 06/06 1515 DC 06/06 PO 06/06 1516 1535 Enoxaparin Sodium 0 .STK-MED ONE 06/06 2049 DC SC Enoxaparin Sodium 40 MG DAILY 06/06 2013 DC 06/07 SC 0834 Guaifenesin 10 ML Q4P PRN 06/07 0230 AC 06/07 PO 1143 Ketorolac 30 MG BID PRN 06/06 2215 DC 06/06 Tromethamine IV 06/11 2214 2308 Magnesium Hydroxide 30 ML Q8P PRN 06/07 1130 AC PO Oxycodone/ 1 TAB Q4P PRN 06/06 2215 AC 06/07 Acetaminophen PO 1023 Phenol 2 SPRAY Q2P PRN 06/06 2300 AC 06/07 EXT 0022 Polyethylene Glycol 17 GM BID 06/06 2300 AC 06/07 PO 0837 Senna 187 MG AT BEDTIME 06/07 2100 AC PO Tramadol HCl 50 MG Q6 PRN 06/07 0945 AC PO Last 24 Hrs of Lab/Joey Results Last 24 Hrs of Labs/Mics: Laboratory Tests 06/07/18 0610: Anion Gap 7, Estimated GFR > 60, BUN/Creatinine Ratio 15.0 06/07/18 0049: Urine Color YEL, Urine Clarity CLEAR, Urine pH 7.5, Ur Specific [place] 1.015, Urine Protein NEG, Urine Ketones NEG, Urine Nitrite NEG, Urine Bilirubin NEG, Urine Urobilinogen 0.2, Ur Leukocyte Esterase NEG, Ur Microscopic EXAM NOT REQUIRED, Urine Hemoglobin NEG, Urine Glucose NEG 06/06/18 1624: Anion Gap 7, Estimated GFR > 60, BUN/Creatinine Ratio 16.7, Glucose 144 H, Calcium 9.4, Total Bilirubin 0.7, AST 22, ALT 33, Alkaline Phosphatase 78, Total Protein 7.0, Albumin 3.8, Globulin 3.2, Albumin/Globulin Ratio 1.2, CBC w Diff NO MAN DIFF REQ, RBC 4.45, MCV 87.8, MCH 29.2, MCHC 33.3, RDW 14.1, MPV 8.9, Gran % 79.0 H, Lymphocytes % 14.4 L, Monocytes % 5.5, Eosinophils % 0.4, Basophils % 0.7, Absolute Granulocytes 5.7, Absolute Lymphocytes 1.0 L, Absolute Monocytes 0.4, Absolute Eosinophils 0, Absolute Basophils 0.1 Assessment/Plan Assessment: 48 y/o F with PMH of asthma, fibromyalgia, OA, depression who presented to the ED for evaluation of sudden onset left lower extremity pain. She is s/p anterior cervical discectomy C5-7 with instrumentation and left illiac crest bone graft on 06/[address] Romo. Postoperatively there were no complains with independence in her ADLs. On the day of admission patient states she pulled her left leg towards her when she suddenly felt a pop followed by excrutiating pain in her left thigh. She described her pain as sharp, radiating down to her leg, 10/10 in severity with numbess of her leg. Percocet offered no relief at home. She was given in the ED again which helped. She was admitted to the general medicine floor for pain management. #Problem List #Severe Lower Extremity Pain #History of Cervical degerative disc disease s/p discectomy PLAN: * Orthopedic service was notified and is being followed. CT scan showed slight inferior displacement of the left anterior-superior iliac spine indicating probable avulsion. Plan is to take pt to the OR on 06/09 for staged posterior cervical discectomy and fusion C5-7 and T1-2 with ICBG and left anterior iliac spine exploration with possible open reduction and internal fixation of avulsion. * Pain management as indicated. * Neck collar at all times. * Bowel regimen. FULL CODE DVT PPX Mechanical REG DIET Problem List: 1. Lower extremity pain, left Pain Ratin Pain Location: Left hip Pain Goal: Pain 4 or less Pain Plan: As indicated Tomorrow's Labs & Rationales: n/a
--- NOTE | 2018-06-07 11:46 | Cons- Orthopedic ---
General Information and HPI Consulting Request Date of Consult: 06/07/18 Requested By: Clifton Rueda MD Reason for Consult: Left iliac crest/thigh pain Source of Information: patient Exam Limitations: no limitations History of Present Illness: Hamida is a 48 y/o female who is 4 days s/p ACDF C5-7 with Instrumentation and left ICBG on 06/03/18. She was discharged on 06/04/18 in stable condition. She was discharged to the hotel for recovery until her staged posterior cervical decompression/fusion planned for 06/09/18 due to severe osteoporosis discovered during her anterior procedure. Hamida admits to struggling with ambulation and getting in and out of bed as well as on and off the toilet due to the height. She recalls losing her balance and bumping her left hip into the bed while attempting to get in. She has also been complaining of a cough continuously which has aggravated both her neck and left hip pain. She states that she heard a "pop" in her left hip yesterday after a coughing spell and experienced swelling in her proximal thigh as well as severe pain and difficulty bearing weight. She then called 911 and presented to the ER for evaluation. Her CT scan of her left pelvis shows slight inferior displacement of the left anterior-superior iliac spine with expected postoperative changes. She was admitted for pain management. Allergies/Medications Allergies: Coded Allergies: Penicillins (Severe, anaphylaxis 06/06/18) nut - unspecified (Severe, ANAPHYLAXIS 06/06/18) pineapple (Severe, anaphylaxis 06/06/18) Uncoded Allergies: chlorine (Severe, anaphylaxis 05/03/18) Home Med List: Acetaminophen (Tylenol Extra Strength) 500 MG TABLET 1 TAB PO TID PRN TEMP>101 Albuterol Sulfate (Ventolin Hfa) 90 MCG HFA.AER.AD 2 PUF INH Q4-6 PRN PRN ASTHMA (Reported) Bisacodyl (Dulcolax) 10 MG SUPP.RECT 1 SUP RC DAILY PRN CONSTIPATION Calcium Carbonate/Vitamin D3 (Os-Olivre 500+D3 Caplet) 500 MG-200 TABLET 1 TAB PO BID [facility] Cholecalciferol (Vitamin D3) 1,000 UNIT TABLET 1 TAB PO DAILY [facility] Docusate Sodium (Colace) 100 MG CAPSULE 1 CAP PO BID PRN CONSTIPATION Magnesium Hydroxide (Milk Of Magnesia) 400 MG/5 ML ORAL.SUSP 5 ML PO Q8P PRN CONSTIPATION Multiple Vitamin (Multivitamins) 1 EACH TABLET 1 TAB PO DAILY GENERAL HEALTH Oxycodone HCl/Acetaminophen (Percocet 5-325 MG Tablet) 5 MG-325 MG TABLET 1-2 TAB PO Q4-6 PRN PAIN Current Medications: Current Medications Sig/Samina Start time Last Medication Dose Route Stop Time Status Admin Acetaminophen 0 .STK-MED ONE 06/06 2205 DC PO Acetaminophen 650 MG Q6P PRN 06/06 2015 06/06 PO 2205 Acetaminophen 0 .STK-MED ONE 06/06 1638 DC IV Acetaminophen 1,000 MG ONCE ONE 06/06 1515 DC 06/06 N/A 1 UNIT IV 06/06 1529 1643 Benzocaine/Menthol 1 PAOLO Q2P PRN 06/06 2300 AC 06/07 PO 0837 Bisacodyl 10 MG DAILY PRN 06/07 1130 AC [place] Cyclobenzaprine HCl 0 .STK-MED ONE 06/06 2307 DC PO Cyclobenzaprine HCl 5 MG TID PRN 06/06 2215 AC PO Cyclobenzaprine HCl 5 MG ONCE ONE 06/06 2215 DC 06/06 PO 06/06 2216 2308 Diazepam 0 .STK-MED ONE 06/06 1532 DC PO Diazepam 5 MG ONCE ONE 06/06 1515 DC 06/06 PO 06/06 1516 1535 Enoxaparin Sodium 0 .STK-MED ONE 06/06 2049 DC SC Enoxaparin Sodium 40 MG DAILY 06/06 2013 DC 06/07 SC 0834 Guaifenesin 10 ML Q4P PRN 06/07 0230 AC 06/07 PO 1143 Ketorolac 30 MG BID PRN 06/06 2215 DC 06/06 Tromethamine IV 06/11 2214 2308 Magnesium Hydroxide 30 ML Q8P PRN 06/07 1130 AC PO Oxycodone/ 1 TAB Q4P PRN 06/06 2215 AC 06/07 Acetaminophen PO 1023 Phenol 2 SPRAY Q2P PRN 06/06 2300 AC 06/07 EXT 0022 Polyethylene Glycol 17 GM BID 06/06 2300 AC 06/07 PO 0837 Senna 187 MG AT BEDTIME 06/07 2100 AC PO Tramadol HCl 50 MG Q6 PRN 06/07 0945 AC PO Past History Medical History Blood Transfusion Hx: No Neurological: dizziness EENT: allergies, rhinitis Cardiovascular: NONE Respiratory: asthma Gastrointestinal: NONE Hepatic: NONE Renal: NONE Musculoskeletal: disk herniation, degen joint disease, fibromyalgia, osteoarthritis, spinal stenosis Psychiatric: depression, insomnia Endocrine: obesity Blood Disorders: NONE Cancer(s): NONE 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 MOTHER (2 CVA'SDIABETES). Age 67. FATHER (ALCOHOL DEPENDENCE). Age 68. GRANDMOTHER (DIABETESCOPD). Age 89. 2 BROTHERS (ALIVE AND WELL). Psychosocial History Where Do You Live? Home Who Do You Live With? 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 Exam & Diagnostic Data Vital Signs and I&O Vital Signs Date Time Temp Pulse Resp B/P B/P Pulse O2 O2 Flow FiO2 Mean Ox Delivery Rate 06/07 1150 98.4 91 20 120/86 96 06/07 0800 Room Air 06/07 0633 98.8 90 18 122/80 95 Room Air 06/06 2241 99.0 90 18 140/90 96 / 2104 99.2 06/06 2058 99.2 96 18 119/73 97 Room Air 06/06 1717 98.8 98 16 124/73 95 Room Air 06/06 1514 Room Air Room Air 06/06 1454 98.7 124 26 176/102 97 Room Air Room Air Intake & Output 06/07 1600 06/07 0800 06/07 0000 06/06 1600 06/06 0800 06/06 0000 Intake Total 220 100 Output Total 150 750 250 Balance -150 -530 -150 Intake, IV 20 Intake, Oral 200 100 Output, Urine 150 750 250 Patient 216 lb 216 lb Weight Weight Reported by Patient Measurement Method Physical Exam General Appearance: alert, awake, mild distress Neck: Incision C/D/I. Dressing changed. + mild postoperative edema but no ecchymosis. Respiratory: normal breath sounds, no respiratory distress Cardiovascular: regular rate/rhythm Peripheral Pulses: 2+ tibialis posterior (R), 2+ tibialis posterior (L), 2+ dorsalis pedis (R), 2+ dorsalis pedis (L) Gastrointestinal: normal bowel sounds, soft, non-tender Back: left iliac crest bone graft incision C/D/I. Dressing changed. No drainage or ecchymosis. + minimal edema Extremities: +5/5 mars. EHL, ant. tib, and plantar flexion. +left quad weakness due to pain. No homans or calf tenderness. Warm to touch. + capillary refill. + slight decreased sensation over left ant. thigh in superficial femoral cutaneous nerve distribution likely due to edema Neurologic/Psych: Neurovascularly stable in mars. UE with no new or worsening gross motor or sensory loss. Skin: intact, normal color, warm/dry Last 24 Hours of Labs: Laboratory Tests 06/07 06/07 0610 0049 Chemistry Sodium (137 - 145 mmol/L) 138 Potassium (3.5 - 5.1 mmol/L) 4.2 Chloride (98 - 107 mmol/L) 103 Carbon Dioxide (22 - 30 mmol/L) 28 Anion Gap (5 - 16) 7 BUN (7 - 17 mg/dL) 9 Creatinine (0.5 - 1.0 mg/dL) 0.6 Estimated GFR (>60 ml/min) > 60 BUN/Creatinine Ratio (7 - 25 %) 15.0 Urines Urine Color (YEL,AMB,STR) YEL Urine Clarity (CLEAR) CLEAR Urine pH (5.0 - 8.0) 7.5 Ur Specific [place] (1.001 - 1.035) 1.015 Urine Protein (NEG,<30 MG/DL) NEG Urine Ketones (NEG) NEG Urine Nitrite (NEG) NEG Urine Bilirubin (NEG) NEG Urine Urobilinogen (0.1 - 1.0 EU/dl) 0.2 Ur Leukocyte Esterase (NEG) NEG Ur Microscopic EXAM NOT REQUIRED Urine Hemoglobin (NEG) NEG Urine Glucose (N MG/DL) NEG 06/06 1624 Chemistry Sodium (137 - 145 mmol/L) 138 Potassium (3.5 - 5.1 mmol/L) 4.2 Chloride (98 - 107 mmol/L) 101 Carbon Dioxide (22 - 30 mmol/L) 30 Anion Gap (5 - 16) 7 BUN (7 - 17 mg/dL) 10 Creatinine (0.5 - 1.0 mg/dL) 0.6 Estimated GFR (>60 ml/min) > 60 BUN/Creatinine Ratio (7 - 25 %) 16.7 Glucose (65 - 99 mg/dL) 144 H Calcium (8.4 - 10.2 mg/dL) 9.4 Total Bilirubin (0.2 - 1.3 mg/dL) 0.7 AST (14 - 36 U/L) 22 ALT (9 - 52 U/L) 33 Alkaline Phosphatase (<127 U/L) 78 Total Protein (6.3 - 8.2 g/dL) 7.0 Albumin (3.5 - 5.0 g/dL) 3.8 Globulin (1.9 - 4.2 gm/dL) 3.2 Albumin/Globulin Ratio (1.1 - 2.2 %) 1.2 Hematology CBC w Diff NO MAN DIFF REQ WBC (4.8 - 10.8 /CUMM) 7.2 RBC (4.20 - 5.40 /CUMM) 4.45 Hgb (12.0 - 16.0 G/DL) 13.0 Hct (37 - 47 %) 39.1 MCV (81.0 - 99.0 FL) 87.8 MCH (27.0 - 31.0 PG) 29.2 MCHC (33.0 - 37.0 G/DL) 33.3 RDW (11.5 - 14.5 %) 14.1 Plt Count (130 - 400 /CUMM) 261 MPV (7.4 - 10.4 FL) 8.9 Gran % (42.2 - 75.2 %) 79.0 H Lymphocytes % (20.5 - 51.1 %) 14.4 L Monocytes % (1.7 - 9.3 %) 5.5 Eosinophils % (0 - 5 %) 0.4 Basophils % (0.0 - 2.0 %) 0.7 Absolute Granulocytes (1.4 - 6.5 /CUMM) 5.7 Absolute Lymphocytes (1.2 - 3.4 /CUMM) 1.0 L Absolute Monocytes (0.10 - 0.60 /CUMM) 0.4 Absolute Eosinophils (0.0 - 0.7 /CUMM) 0 Absolute Basophils (0.0 - 0.2 /CUMM) 0.1 Assessment/Plan Assessment/Plan Assessment: 1.s/p ACDF C5-7 with Instr./ICBG 2.Traumatic avulsion of the left anterior-superior iliac spine. 3. Severe osteoporosis 4. T1-2 disc herniation with cord compression Plan:- Continue Percocet and Ultram -Ice to incisions prn pain -Collar at all times -PT for OOB to chair/bedside commode and bathroom privileges/ bedside ROM. -Plan for staged PCDF C5-7 and T1-2 decompression fusion with ICBG and left anterior iliac spine exploration and possible ORIF of avulsion -Bowel regimen. Problem List: 1. Fibromyalgia 2. Asthma 3. Endometriosis 4. Allergic rhinitis 5. Depression 6. Insomnia 7. Low back pain 8. Thoracic disc herniation Copies To: Demetrius CURTIS,Bakari Consult Acknowledgment - Thank you for your consult request. Attending MD Review Statement Attending Statement Attending MD Statement: discuss w/resident/PA/ACCOUNT EXECUTIVE KEY ACCOUNTS, agreed w/resident/PA/ACCOUNT EXECUTIVE KEY ACCOUNTS, reviewed images
[2018-06-07 11:50] VITALS: BP 120/86
[2018-06-07 15:16] VITALS: BP 110/80
[2018-06-07 22:13] VITALS: BP 110/76
[2018-06-08 06:18] VITALS: BP 138/80
--- NOTE | 2018-06-08 06:39 | PN- Housestaff ---
Monet Chris Guillens 06/08/18 0639: Subjective Follow-up For: S/p anterior cervical discectomy C5-7 with instrumentation and left illiac crest bone graft Left illiac crest/thigh pain Subjective: Pt seen and examined this AM. Comfortably breathing on room air. Afebrile. She complains of neck pain attributed to bad sleep positioning as well as pain near incision site. She feels her pain is well controlled with adequate duration during the whole day. Review of Systems Constitutional: Reports: see HPI. Objective Last 24 Hrs of Vital Signs/I&O Vital Signs Date Time Temp Pulse Resp B/P B/P Pulse O2 O2 Flow FiO2 Mean Ox Delivery Rate 06/08 618 98.8 91 18 138/80 97 Room Air 06/07 2213 99.2 88 20 110/76 96 06/07 1516 98.4 115 20 110/80 99 06/07 1150 98.4 91 20 120/86 96 Intake & Output 06/08 1600 06/08 0800 06/08 0000 Intake Total 360 400 Output Total 375 150 Balance -15 250 Intake, Oral 360 400 Number 0 1 Bowel Movements Output, Urine 375 150 Physical Exam General Appearance: Alert, Oriented X3, Cooperative, No Acute Distress HEENT: Atraumatic Cardiovascular: Regular Rate, Normal S1, Normal S2, No Murmurs Lungs: Clear to Auscultation Abdomen: Normal Bowel Sounds, Soft, No Tenderness Neurological: Normal Speech Current Medications: Current Medications Sig/Samina Start time Last Medication Dose Route Stop Time Status Admin Acetaminophen 650 MG Q6P PRN 06/06 2015 AC 06/07 PO 2115 Benzocaine/Menthol 1 PAOLO Q2P PRN 06/06 2300 AC 06/07 PO 0837 Bisacodyl 10 MG DAILY PRN 06/07 1130 AC [place] Cyclobenzaprine HCl 5 MG TID PRN 06/06 2215 AC 06/07 PO 2106 Enoxaparin Sodium 40 MG DAILY 06/06 2013 DC 06/07 SC 0834 Guaifenesin 10 ML Q4P PRN 06/07 0230 AC 06/08 PO 0535 Ketorolac 30 MG BID PRN 06/06 2215 DC 06/06 Tromethamine IV 06/11 2214 2308 Lidocaine 1 PAT DAILY PRN 06/07 2330 AC EXT Magnesium Hydroxide 30 ML Q8P PRN 06/07 1130 AC PO Oxycodone/ 1 TAB Q4P PRN 06/06 2215 AC 06/08 Acetaminophen PO 0303 Patient Medication 1 ED ONE ONE 06/07 1945 [place] Teaching ED 06/07 1946 Phenol 2 SPRAY Q2P PRN 06/06 2300 AC 06/08 EXT 0535 Polyethylene Glycol 17 GM BID 06/06 2300 AC 06/07 PO 2105 Senna 187 MG AT BEDTIME 06/07 2100 AC 06/07 PO 2105 Tramadol HCl 50 MG Q6 PRN 06/07 0945 AC 06/07 PO 1604 Assessment/Plan Assessment: 48 y/o F with PMH of asthma, fibromyalgia, OA, depression who presented to the ED for evaluation of sudden onset left lower extremity pain. She is s/p anterior cervical discectomy C5-7 with instrumentation and left illiac crest bone graft on 06/[address] Romo. Postoperatively there were no complains with independence in her ADLs. On the day of admission patient states she pulled her left leg towards her when she suddenly felt a pop followed by excrutiating pain in her left thigh. She described her pain as sharp, radiating down to her leg, 10/10 in severity with numbess of her leg. Percocet offered no relief at home. She was given in the ED again which helped. She was admitted to the general medicine floor for pain management. #Problem List #Severe Lower Extremity Pain #History of Cervical degerative disc disease s/p discectomy PLAN: * Orthopedic service following. Patient of Dr. Bakari Romo. CT scan showed slight inferior displacement of the left anterior-superior iliac spine indicating probable avulsion. Plan is to take pt to the OR on 06/09 for staged posterior cervical discectomy and fusion C5-7 and T1-2 with ICBG and left anterior iliac spine exploration with possible open reduction and internal fixation of avulsion. * Will order coags, CXR, EKG for preop evaluation. RCRI risk: 0.4%: Class I risk -> not a high risk surgery with no h/o ischemic heart disease, CHF, pre-op treatment with insulin, high Cr, or h/o CVA/TIA. * Pain management as indicated. Well controlled as per patient. * Neck collar at all times. * Bowel regimen. FULL CODE NPO at midnight DVT PPX alps Problem List: 1. Lower extremity pain, left Pain Ratin Pain Location: Neck. Left hip. Pain Goal: Pain 4 or less Pain Plan: As indicated. Tomorrow's Labs & Rationales: . Clifton Rueda MD 06/08/18 1257: Attending MD Review Statement Attending Statement Attending MD Statement: examined this patient, discuss w/resident/PA/SUPERVISOR FABRICATION DEPARTMENT, agreed w/resident/PA/SUPERVISOR FABRICATION DEPARTMENT, reviewed EMR data (avail), discussed with nursing, discussed with case mgmt, amended to note Attending Assessment/Plan: The patient was seen and discussed with residents, nursing and case management. Has pain in her shoulder and in left groin area (?related to iliac donor site). Will increase dose of Percocet and try cyclobenzaprine as there may be spasm component to pain. Is going to OR again tomorrow for planned procedure. Will review prior medical pre-op evaluation and calculate RCRI, etc.
[2018-06-08 10:10] LABS: PTT 21 SEC (25-37)
--- NOTE | 2018-06-08 11:54 | PN- Orthopedic ---
Subjective Subjective: Patient feeling much better with her left hip pain. Patient mobilizing to chair and commode with assistance and less pain. + sorethroat and neck pain, aggravated by coughing. + BM yesterday and voiding without difficulty. + flatus but c/o LLQ abd. gas pain. + c/o intermittent sharp CP with left arm numbness and perioral numbness. Medicine notified. Review of Systems: Remarkable for the above complaints. Objective Vital Signs and I&Os Vital Signs Date Time Temp Pulse Resp B/P B/P Pulse O2 O2 Flow FiO2 Mean Ox Delivery Rate 06/08 800 Room Air 06/08 0618 98.8 91 18 138/80 97 Room Air 06/07 2213 99.2 88 20 110/76 96 06/07 1516 98.4 115 20 110/80 99 06/07 1150 98.4 91 20 120/86 96 Intake & Output 06/08 1600 06/08 0806/08 0000 06/07 1600 06/07 0800 06/07 0000 Intake Total 360 400 860 220 100 Output Total 375 150 750 750 250 Balance -15 250 110 -530 -150 Intake, IV 0 20 Intake, Oral 360 400 860 200 100 Number 0 1 Bowel Movements Output, Urine 375 150 750 750 250 Patient 216 lb Weight Physical Exam General Appearance: well developed/nourished, alert, awake, comfortable Neck: Incision C/D/I. Dressing changed. Respiratory: normal breath sounds, no respiratory distress Cardiovascular: regular rate/rhythm Peripheral Pulses: 2+ tibialis posterior (R), 2+ tibialis posterior (L), 2+ dorsalis pedis (R), 2+ dorsalis pedis (L) Abdomen: normal bowel sounds, soft, tenderness, slight tenderness to LLQ to palpation. Soft without ecchymosis. Back: left iliac incision C/D/I. Dressing changed. Slight tenderness to palpation. No erythema or eccymosis. Extremities: normal capillary refill, no edema, - Homans. No calf tenderness. Neurologic/Psychiatric: +left quad weakness when compared to the right with apprehension. + decreased sensation over left anterior thigh. +5/5 EHL, Ant. tib, and plantar flexion bilaterally. Passive ROM of left leg with straight leg raise elicits minimal pain. Skin: intact, normal color, warm/dry Current Medications: Current Medications Sig/Samina Start time Last Medication Dose Route Stop Time Status Admin Acetaminophen 650 MG Q6P PRN 06/06 2015 AC 06/07 PO 2115 Benzocaine/Menthol 1 PAOLO Q2P PRN 06/06 230 06/08 PO 0839 Bisacodyl 10 MG DAILY PRN 06/07 1130 AC [place] Cyclobenzaprine HCl 5 MG TID PRN 06/06 2215 06/08 PO 0917 Guaifenesin 10 ML Q4P PRN 06/07 0230 06/08 PO 0933 Lidocaine 1 PAT DAILY PRN 06/07 2330 06/08 EXT 0919 Lidocaine/Diphenhydr/ 5 ML TID PRN 06/08 1100 AC Alum/Mg/Simeth PO Magnesium Hydroxide 30 ML Q8P PRN 06/07 1130 PO Oxycodone/ 1 TAB ONCE ONE 06/08 0930 DC 06/08 Acetaminophen PO 06/08 0931 0932 Oxycodone/ 2 TAB Q6P PRN 06/08 0930 AC Acetaminophen PO Oxycodone/ 1 TAB Q4P PRN 06/06 2215 06/08 Acetaminophen PO 0839 Patient Medication 1 ED ONE ONE 06/08 1145 Teaching ED 06/08 1146 Patient Medication 1 ED ONE ONE 06/07 1945 PR Teaching ED 06/07 1946 Phenol 2 SPRAY Q2P PRN 06/06 2300 06/08 EXT 0535 Polyethylene Glycol 17 GM BID 06/06 230 06/08 PO 0839 Senna 187 MG AT BEDTIME 06/07 2100 06/07 PO 2105 Simethicone 40 MG ONCE ONE 06/08 1100 DC PO 06/08 1101 Tramadol HCl 50 MG Q6 PRN 06/07 0945 06/07 PO 1604 Results Last 48 Hours of Labs: Laboratory Tests 06/08 06/07 06/07 0913 0610 0049 Chemistry Sodium (137 - 145 mmol/L) 138 Potassium (3.5 - 5.1 mmol/L) 4.2 Chloride (98 - 107 mmol/L) 103 Carbon Dioxide (22 - 30 mmol/L) 28 Anion Gap (5 - 16) 7 BUN (7 - 17 mg/dL) 9 Creatinine (0.5 - 1.0 mg/dL) 0.6 Estimated GFR (>60 ml/min) > 60 BUN/Creatinine Ratio (7 - 25 %) 15.0 Coagulation PT (9.4 - 12.5 SEC) 12.0 INR (0.90 - 1.19) 1.10 APTT (25 - 37 SEC) 21 L Urines Urine Color (YEL,AMB,STR) YEL Urine Clarity (CLEAR) CLEAR Urine pH (5.0 - 8.0) 7.5 Ur Specific [place] (1.001 - 1.035) 1.015 Urine Protein (NEG,<30 MG/DL) NEG Urine Ketones (NEG) NEG Urine Nitrite (NEG) NEG Urine Bilirubin (NEG) NEG Urine Urobilinogen (0.1 - 1.0 EU/dl) 0.2 Ur Leukocyte Esterase (NEG) NEG Ur Microscopic EXAM NOT REQUIRED Urine Hemoglobin (NEG) NEG Urine Glucose (N MG/DL) NEG 06/06 1624 Chemistry Sodium (137 - 145 mmol/L) 138 Potassium (3.5 - 5.1 mmol/L) 4.2 Chloride (98 - 107 mmol/L) 101 Carbon Dioxide (22 - 30 mmol/L) 30 Anion Gap (5 - 16) 7 BUN (7 - 17 mg/dL) 10 Creatinine (0.5 - 1.0 mg/dL) 0.6 Estimated GFR (>60 ml/min) > 60 BUN/Creatinine Ratio (7 - 25 %) 16.7 Glucose (65 - 99 mg/dL) 144 H Calcium (8.4 - 10.2 mg/dL) 9.4 Total Bilirubin (0.2 - 1.3 mg/dL) 0.7 AST (14 - 36 U/L) 22 ALT (9 - 52 U/L) 33 Alkaline Phosphatase (<127 U/L) 78 Total Protein (6.3 - 8.2 g/dL) 7.0 Albumin (3.5 - 5.0 g/dL) 3.8 Globulin (1.9 - 4.2 gm/dL) 3.2 Albumin/Globulin Ratio (1.1 - 2.2 %) 1.2 Hematology CBC w Diff NO MAN DIFF REQ WBC (4.8 - 10.8 /CUMM) 7.2 RBC (4.20 - 5.40 /CUMM) 4.45 Hgb (12.0 - 16.0 G/DL) 13.0 Hct (37 - 47 %) 39.1 MCV (81.0 - 99.0 FL) 87.8 MCH (27.0 - 31.0 PG) 29.2 MCHC (33.0 - 37.0 G/DL) 33.3 RDW (11.5 - 14.5 %) 14.1 Plt Count (130 - 400 /CUMM) 261 MPV (7.4 - 10.4 FL) 8.9 Gran % (42.2 - 75.2 %) 79.0 H Lymphocytes % (20.5 - 51.1 %) 14.4 L Monocytes % (1.7 - 9.3 %) 5.5 Eosinophils % (0 - 5 %) 0.4 Basophils % (0.0 - 2.0 %) 0.7 Absolute Granulocytes (1.4 - 6.5 /CUMM) 5.7 Absolute Lymphocytes (1.2 - 3.4 /CUMM) 1.0 L Absolute Monocytes (0.10 - 0.60 /CUMM) 0.4 Absolute Eosinophils (0.0 - 0.7 /CUMM) 0 Absolute Basophils (0.0 - 0.2 /CUMM) 0.1 Assessment/Plan Assessment/Plan Assessment: 1. s/p ACDF C5-7 with Instr./ICBG 2. Traumatic avulsion of left anterior-superior iliac spine 3. Severe osteoporosis 4. T1-2 Disc herniation Plan: 1. Possible cardiac work-up per medicine 2. Continue bowel regimen/gas relief 3. Warm compresses to abd. prn pain 4. Continue Percocet, Ultram, and Lidoderm prn pain 5. NPO after MN 5. LR at 80cc/hr after MN 6. Plan for PCDF C5-7 and T1-2 decompression/fusion with left iliac crest exploration tomorrow. Problem List: 1. Fibromyalgia 2. Asthma 3. Endometriosis 4. Allergic rhinitis 5. Depression 6. Insomnia Attending MD Review Statement Attending Statement Attending MD Statement: discuss w/resident/PA/DIRECTOR OF MAINTENANCE, agreed w/resident/PA/DIRECTOR OF MAINTENANCE, reviewed images
--- NOTE | 2018-06-08 15:38 | RADIOLOGY REPORT ---
EXAMINATION: XR CHEST CLINICAL INFORMATION: Preoperative x-ray. COMPARISON: None. TECHNIQUE: AP and lateral views of the chest were obtained. Imaging is limited by patient body habitus and poor inspiration. FINDINGS: The lung atylor are hyperexpanded bilaterally. There is crowding of the bronchovascular markings at the lung bases. The cardiac silhouette is normal in size. There are no pleural effusions. The central pulmonary vasculature appears normal. ACDF changes are noted in the lower cervical spine. There are no acute osseous findings. IMPRESSION: 1. There are no acute cardiopulmonary findings. 2. Imaging is limited by patient body habitus.
[2018-06-08 16:00] VITALS: BP 110/65
[2018-06-08 22:25] VITALS: BP 110/76
[2018-06-09 06:41] VITALS: BP 120/74
--- NOTE | 2018-06-09 07:17 | PN- Housestaff ---
See Addendum Subjective Follow-up For: S/p anterior cervical discectomy C5-7 with instrumentation and left illiac crest bone graft Left illiac crest/thigh pain Subjective: Pt seen and examined today. Due for the OR. She offers no acute complains. As per pt, her pain was in control, mother was at bedside. She was comfortably lying down in bed. VSS are stable. Review of Systems Constitutional: Reports: see HPI. Objective Last 24 Hrs of Vital Signs/I&O Vital Signs Date Time Temp Pulse Resp B/P B/P Pulse O2 O2 Flow FiO2 Mean Ox Delivery Rate 06/09 641 97.7 94 20 120/74 97 Room Air 06/08 2225 98.8 95 16 110/76 95 06/08 1600 98.8 87 18 110/65 96 06/08 0800 Room Air Intake & Output 06/09 0800 06/09 0000 06/08 1600 Intake Total 225 480 Output Total 400 300 200 Balance -400 -75 280 Intake, IV 0 Intake, Oral 225 480 Number 0 0 Bowel Movements Output, Urine 400 300 200 Physical Exam General Appearance: Alert, Oriented X3, Cooperative, No Acute Distress Cardiovascular: Regular Rate, Normal S1, Normal S2, No Murmurs Lungs: Clear to Auscultation Abdomen: Normal Bowel Sounds, Soft, No Tenderness Extremities: No Edema Current Medications: Current Medications Sig/Samina Start time Last Medication Dose Route Stop Time Status Admin Acetaminophen 0 .STK-MED ONE 06/09 701 DC IV Acetaminophen 1,000 MG Q6P PRN 06/09 0000 AC N/A 1 UNIT IV Acetaminophen 650 MG Q6P PRN 06/06 2015 AC 06/07 PO 2115 Benzocaine/Menthol 1 PAOLO Q2P PRN 06/06 2300 AC 06/08 PO 0839 Bisacodyl 10 MG DAILY PRN 06/07 1130 AC ID Clindamycin 600 MG ONCE ONE 06/09 0730 AC Dextrose/Water 50 ML IV 06/09 0759 Cyclobenzaprine HCl 5 MG TID PRN 06/06 2215 AC 06/08 PO 1747 Fentanyl Citrate 0 .STK-MED ONE 06/09 701 DC .ROUTE Guaifenesin 10 ML Q4P PRN 06/07 0230 AC 06/08 PO 1648 Hydromorphone HCl 0 .STK-MED ONE 06/09 702 DC .ROUTE Ketamine HCl 0 .STK-MED ONE 06/09 0710 DC .ROUTE Lactated Ringer's 1,000 ML .[id number] 06/09 0000 AC 06/08 IV 2352 Lidocaine 1 PAT DAILY PRN 06/07 2330 AC 06/08 EXT 0919 Lidocaine/Diphenhydr/ 5 ML TID PRN 06/08 1400 AC Alum/Mg/Simeth PO Lidocaine/Diphenhydr/ 5 ML TID PRN 06/08 1100 DC Alum/Mg/Simeth PO Magnesium Hydroxide 30 ML Q8P PRN 06/07 1130 AC PO Midazolam HCl 0 .STK-MED ONE 06/09 0701 DC .ROUTE Oxycodone/ 1 TAB ONCE ONE 06/08 930 DC 06/08 Acetaminophen PO 06/08 0931 0932 Oxycodone/ 2 TAB Q6P PRN 06/08 0930 AC 06/09 Acetaminophen PO 0516 Oxycodone/ 1 TAB Q4P PRN 06/06 2215 AC 06/08 Acetaminophen PO 0839 Patient Medication 1 ED ONE ONE 06/08 1145 DC Teaching ED 06/08 1146 Phenol 2 SPRAY Q2P PRN 06/06 2300 AC 06/09 EXT 0517 Polyethylene Glycol 17 GM BID 06/06 2300 AC 06/08 PO 0839 Senna 187 MG AT BEDTIME 06/07 2100 AC 06/07 PO 2105 Simethicone 40 MG ONCE ONE 06/08 1100 DC 06/08 PO 06/08 1101 1253 Tramadol HCl 50 MG Q6 PRN 06/07 0945 AC 06/08 PO 1747 Last 24 Hrs of Lab/Joey Results Last 24 Hrs of Labs/Mics: Laboratory Tests 06/08/1813: PT 12.0, INR 1.10, APTT 21 L Assessment/Plan Assessment: 48 y/o F with PMH of asthma, fibromyalgia, OA, depression who presented to the ED for evaluation of sudden onset left lower extremity pain. She is s/p anterior cervical discectomy C5-7 with instrumentation and left illiac crest bone graft on 06/[address] Romo. Postoperatively there were no complains with independence in her ADLs. On the day of admission patient states she pulled her left leg towards her when she suddenly felt a pop followed by excrutiating pain in her left thigh. She described her pain as sharp, radiating down to her leg, 10/10 in severity with numbess of her leg. Percocet offered no relief at home. She was given in the ED again which helped. She was admitted to the general medicine floor for pain management. #Problem List #Severe Lower Extremity Pain #History of Cervical degerative disc disease s/p discectomy PLAN: Orthopedic service following. Patient of Dr. Bakari Romo. CT scan showed slight inferior displacement of the left anterior-superior iliac spine indicating probable avulsion. Plan is to take pt to the OR today 06/09 for staged posterior cervical discectomy and fusion C5-7 and T1-2 with ICBG and left anterior iliac spine exploration with possible open reduction and internal fixation of avulsion. RCRI risk: 0.4%: Class I risk -> not a high risk surgery with no h/o ischemic heart disease, CHF, pre-op treatment with insulin, high Cr, or h/o CVA/TIA. Pain management as indicated. Well controlled as per patient. Neck collar at all times. Bowel regimen. FULL CODE OR today DVT PPX alps Problem List: 1. Lower extremity pain, left Pain Ratin Pain Location: Left hip Pain Goal: Pain 4 or less Pain Plan: As indicated Tomorrow's Labs & Rationales: n/a
--- NOTE | 2018-06-09 11:53 | PN- Orthopedic ---
Surgical Brief Attending Note Brief Attending Note: This is a preop note regarding Lily Bejarano. Intervening this chart with her caregiver she was apologetic over her postoperative behavior in the hotel. She said she felt like she was overactive. She lost her balance in the bathroom and had to catch herself from falling instructor iliac crest against the bathroom sink after that her hip 8 and the next day she felt a pop and fell into her bed with left hip pain. She complains of some continued right and left arm pain but feels significantly less hip pain since her admission to the hospital. She feels rather than pain she is having mostly anxiety. She has had that in the past. She understands she has a fracture of the anterior superior iliac spine and that we will be able to harvest bone graft through the same incision anteriorly for the use of the fusion posteriorly and save her from a posterior fourth incision. We talked about reducing the fracture with sutures because I believe instrumentation will come loose given her osteoporosis seen on the anterior surgery. She agreed to limit her activity to toe-touch ambulation with a walker as she heals anteriorly. We talked about the risks from a disease and she was to proceed with surgery [id number].
--- NOTE | 2018-06-09 12:01 | Operative Report ---
Operative/Inv Procedure Report Surgery Date: 06/09/18 Name of Procedure: Posterior cervical and thoracic laminectomies C5 6 C6 7 T1 2. Instrumented fusion C567 T1 to. Lateral fusion with autologous iliac crest morselized bone graft C5 6 7 T1 tube. Placement of Pineda tongs removal of Pineda tongs use of fluoroscopy. Anterior iliac crest morselized bone harvest. ORIF of fractured anterior iliac spine left side. Pre-Operative Diagnosis: Spinal stenosis cervical and thoracic C5 6 7 T1 2. Fracture anterior superior iliac spine left. Osteoporosis. Post-Operative Diagnosis: Same Estimated Blood Loss: 50ml to 100ml Surgeon/Mailing Clerk: Bakari Romo M.D., Mayela MICHAEL Anesthesia: general endotracheal tube Operative/Procedure Note Note: After adequate general anesthesia was achieved the patient was placed in the supine position. The left anterior iliac crest incision was sterilely prepped and draped. The incision was reentered and sutures subcutaneously were removed. Dissection was carried sharply through the closed fascia and the iliac crest was identified and deep wound cultures were sent for stat and culture. The fracture was easily identified and minimally displaced. The Master graft and Gelfoam were removed the wound was copiously irrigated corticotomies were created in the fracture fragment and the pelvis staying well away from the pelvic membrane. Heavy sutures were passed through the iliac wing and fracture fragment the fracture was debrided of soft tissue the fragment was impacted into its original site and the sutures were tied with excellent stability. Bone graft was then harvested using the Le[place]ell and curettes posterior to the original bone graft harvest site. The wound was irrigated Master graft was placed Gelfoam was placed and a closure was performed with absorbable suture of the fashion subcutaneous tissue the skin was closed with malcolm. The patient was transferred to a stretcher the Pineda tongs were applied patient was log rolled onto the operating table with all bony prominences padded. The back of the neck was sterilely prepped and draped and incision was made in the midline and carried down over the dorsal elements with electrocautery metallic object was placed and fluoroscopy was used to identify surgical level. The shoulder was obscured fluoroscopy utilizing markers such as the bifid spinous process of C5 evaluation of the fusion to identify segments with loss of motion and fluoroscopy in the AP plane the levels were determined. Laminectomies were created with the Kerrison and high-speed bur at C5-C6 C7-T1 and T2. Laminectomies at 561 the right side the others were on the left side. Corticotomies were created with the jesse bur and the spinous processes of C5 C7 T1 and T2 wires were passed twisted tightened and bent to the midline after trimming. The pencil point bur was used to decorticate the facets at C5 6 C6 7 T1 and T2 wound was irrigated Gelfoam was laid over the laminotomy sites and bone graft was packed laterally at C5 6 7 T1-T2. The wound was again irrigated and a closure of the fascia was performed with absorbable and running suture as was subcutaneous tissue and the skin was closed with malcolm. The patient was log rolled off the operating table in the Pineda tongs were removed.
--- NOTE | 2018-06-09 12:48 | Patient Discharge Instructions ---
Discharge Instructions General Discharge Information You were seen/treated for: Anterior Cervical decompression with fusion and iliac crest bone graft (06/03/18 Sepsis with Sinus Tachycardia You had these procedures: Anterior Cervical decompression with fusion C5-C7 with iliac crest bone graft Chest CTA Thoracic Spine MRI Pelvis CT Femoral Line placement Watch for these problems: If you experience any chest pain, shortness of breath, fevers, chills, and/or fatigue please follow up with your PCP. Special Instructions: Please follow up with your PCP within one week. [place] to be removed on 06/20/18. Monitor ESR weekly and if it remains elevated further imaging to evaluate for osteomyelitis. Last ESR 85 on June 13, 2018. Please take Ciprofloxacin twice daily to complete your antibiotic therapy regimen. [Continue Ciprofloxacin to plan on a 4 week course of antibiotics (until July 08) Weekly ESR while on antibiotics] Please continue to take your home medications. Diet Continue normal diet: Yes Recommended Diet: Regular Activity Full Activity/No Limits: No Activity Self Limited: Yes Acute Coronary Syndrome Inclusion Criteria At DC or during hospital stay patient has or had the following: ACS DIAGNOSIS No Discharge Core Measures Meds if any: Prescribed or Continued at Discharge Meds if any: NOT Prescribed or Continued at Discharge Congestive Heart Failure Inclusion Criteria At DC or during hospital stay patient has or had the following: CHF DIAGNOSIS No Discharge Core Measures Meds if any: Prescribed or Continued at Discharge Meds if any: NOT Prescribed or Continued at Discharge Cerebrovascular accident Inclusion Criteria At DC or during hospital stay patient has or had the following: CVA/TIA Diagnosis No Discharge Core Measures Meds if any: Prescribed or Continued at Discharge Meds if any: NOT Prescribed or Continued at Discharge Venous thromboembolism Inclusion Criteria VTE Diagnosis No VTE Type NONE VTE Confirmed by (Test) NONE Discharge Core Measures - Per Current guidelines, there needs to be overlap - treatment for the first 5 days of Warfarin therapy. - If discharged on Warfarin prior to 5 days of - overlap therapy, the patient will need to be - assessed for post discharge needs including - *Post discharge parental anticoagulation - *Warfarin and/or parental anticoagulation education - *Follow up date to check INR post discharge At least 5 days overlap therapy as Inpatient No Meds if any: Prescribed or Continued at Discharge Note: Overlap Therapy is Warfarin and Anticoagulant Meds if any: NOT Prescribed or Continued at Discharge
[2018-06-09] MEDS ORDERED: CHLORASEPTIC S1 EACH PO (12:53)
[2018-06-09] MEDS ORDERED: PERCOCET 5-3251 EACH PO (12:53)
[2018-06-09] MEDS ORDERED: CYCLOBENZAPRINE5 M2 PO (12:53)
[2018-06-09] MEDS ORDERED: LIDODERM1 EACH EXT (12:53)
[2018-06-09] MEDS ORDERED: PHENASEPTIC177 ML EXT (12:53)
[2018-06-09] MEDS ORDERED: MIRALAX119 GM PO (12:53)
[2018-06-09] MEDS ORDERED: GUAIFENESI100 MG/5 M PO (12:53)
[2018-06-09 16:13] VITALS: BP 128/80
--- NOTE | 2018-06-09 17:32 | PN- Student ---
Subjective Subjective: Pt is complaining of pain to her left hip and generalized discomfort. She has eaten some of her dinner and tolerated it well. She has voided post-operatively but has not ambulated yet. Admits to still having some residual numbness in her lower extremities. She denies any nausea or vomiting. Also denies any CP, SOB, difficulty breathing, headache or dizziness. Objective Objective: Vitals: See EMR General: middle aged woman, lying in bed, cervical collar in place, slightly drowsy. Cardio: Regular rate and rhythm. s1 and s2 appreciated. no murmurs, rubs or gallops. Pulm: Breath sounds auscultated with no wheezes, rhonchi or rales. Abdomen: Non-distended. Normoactive bowel sounds. soft and non-tender to palpation. Extremities: Dressing in place over left hip. Gross sensation is intact and equal bialterally in the upper and lower extremities. Gross motor function is intact in upper and lower bialterally extremities. Plantar and dorsiflexion is 4 /5 on the right and 3/5 on the left. DP and PT pulses palpable bilaterally. Calves are soft and non-tender to palpation. Results Results: Laboratory Tests 06/08/18912: PT 12.0, INR 1.10, APTT 21 L 06/07/18609: Anion Gap 7, Estimated GFR > 60, BUN/Creatinine Ratio 15.0 06/07/18 0049: Urine Color YEL, Urine Clarity CLEAR, Urine pH 7.5, Ur Specific Benton 1.015, Urine Protein NEG, Urine Ketones NEG, Urine Nitrite NEG, Urine Bilirubin NEG, Urine Urobilinogen 0.2, Ur Leukocyte Esterase NEG, Ur Microscopic EXAM NOT REQUIRED, Urine Hemoglobin NEG, Urine Glucose NEG Microbiology 06/09 835 TRUNK/O.R.: Culture & Sensitivity - RES 06/09 835 TRUNK/O.R.: Gram Stain - RES 06/09 835 MISC O.R.: Miscellaneous Culture - CAN Cancelled: OE 06/09 835 MISC O.R.: Gram Stain - CAN Cancelled: OE 06/09 810 URINE ROUT: Urine Culture - RECD Assessment/Plan Assessment: Pt is a 48 year old female POD#0 s/p PCDF C5-T2 for cervical stenosis and ORIF for avulsion fracture of left anterior superior iliac spine. Pt has residula weakness after fracture and has moderately controlled post-operative pain. Plan: Continue to monitor and control pain. Complete remaining IV antibiotics. Pt may be toe touch weight bearing on her left leg only. PT to see patient. Thoracic MRI scheduled. ALPs device for DVT ppx. Continue to monitor urine output. Regular diet as tolerated. Continue with d/c planning. Will discuss with attending and surgical PA staff.
[2018-06-09 18:00] VITALS: BP 122/80
--- NOTE | 2018-06-09 18:16 | RADIOLOGY REPORT ---
EXAMINATION: CR CERVICAL SPINE/INTRAOPERATIVE FLUOROSCOPY CLINICAL INDICATION: Cervical spine fusion in OR. COMPARISON: Cervical spine MRI scan dated 06/02/2018. TECHNIQUE/FINDINGS: Fluoroscopic equipment was dedicated to the operating room for the performance of an intraoperative procedure. Several (8) spot films were acquired and are archived in PACS. Please refer to operative notes for procedural detail. FLUOROSCOPY TIME: 14.5 seconds. IMPRESSION: Administrative dictation for intraoperative fluoroscopy and image archiving in PACS. Please refer to operative notes for details.
[2018-06-09 20:00] VITALS: BP 120/86
[2018-06-09 22:06] VITALS: BP 120/80
[2018-06-10 02:05] VITALS: BP 122/68
[2018-06-10 05:45] VITALS: BP 128/68
--- NOTE | 2018-06-10 09:27 | PN- Medicine Consult ---
Costa CURTIS,Yrn 06/10/18 0839: Assessment/PlanMedical Consult Assessment/Plan Assessment: 48 year old woman with multiple medical problems significant for extensive spinal orthopedic disease s/p anterior cervical decompression with C5-C7 and bone grafting on 06/03/18 brought in by ambulance for left flank / left thigh pain after walking when she heard a "pop" resulting in inability to ambulate and left numbness. Post operatively yesterday patient was mildly confused most likely due to anesthesia and found to be tachycardic. EKG demonstrated sinus tachycardia to the 100s and TMAX 101.2. Patient appears tired and uncomfortable this morning. Vitals signs continue to be significant for tachycardia up to the 130s. Physical examination demonstrates intact strength and sensation distally. Labs were not checked this morning. OR cultures demonstrate growth of gram negative rods. Patient meets sepsis criteria through tachycardia and temperature with probable source being the gram negative infection. Continue IV fluids for now, check CBC, BMP, UA and lactic acid x2. Obtain blood cultures x2 and urine culture. Continue clindamycin for now, she may require broader coverage with Vancomycin and Ceftazidime/Zosyn. Obtain formal ID consult. Patient may require transfer to telemetry for further evaluation of her sinus tachycardia. Problem List -Sepsis with Gram negative rods from OR culture -Sinus Tachycardia, likely due to sepsis -S/P Posterior cervical / thoracic laminectomies C5-T2 with fusion (06/09/18) -Traumatic avulsion of left ASI s/p decompression/fusion (06/09/18) -Intractible Left flank/thigh pain with numbness after procedure -S/P Anterior Cervical decompression with fusion C5-C7 with iliac crest bone graft (06/03/18) -Severe osteoporosis -T1-T2 disc herniation with cord compression -DJD -Spinal Stenosis -Osteoarthritis -Fibromyalgia -Asthma Recommendations -Post operative care per orthopedics -Cervical collar per orthopedics -Incentive spirometry -OOB to chair -Continue IV fluids for now -Continue clindamycin for now, consider changing to Vancomycin and Ceftaz or Zosyn -Obtain ID consult -Obtain CBC, BMP, lactic acid x2, UA -Obtain blood cultures x2 and Urine culture -PT evaluation -Bowel regimen -Pain control with acetaminophen, flexeril, lidocaine, tramadol, percocet -Mechanical DVT PPx Plan: As above Subjective Subjective: Patient seen and examined. She is seen sitting upright in her chair at bedside with a cervical collar in place sleeping. Her breakfast is in front of her with none of it eaten. She appears tired and uncomfortable and reports 10/10 pain in her left and left hip. She is awake and somewhat alert and orietned to person, place, and time. She states she feels "terrible" but has no other specific subjective complaints. Review of System She denies any subjective fever, chills, chest pain, palpitations, shortness of breath, cough, nausea, vomiting, diarrhea, abdominal pain, or constipation. Objective Last 24 Hrs of Vital Signs/I&O Vital Signs Date Time Temp Pulse Resp B/P B/P Pulse O2 O2 Flow FiO2 Mean Ox Delivery Rate 06/10 0545 98.9 130 24 128/68 94 Room Air 06/10 0404 100.7 06/10 0205 101.2 128 24 122/68 95 Room Air 06/10 0000 Room Air 06/09 2206 99.0 119 18 120/80 94 Room Air 06/09 2000 98.6 120 20 120/86 96 Room Air 06/09 1859 Room Air Room Air 06/09 1800 99.1 116 20 122/80 94 06/09 1613 98.3 100 18 128/80 96 Room Air Intake & Output 06/10 1600 06/10 0800 06/10 0000 Intake Total 490 600 Output Total 600 Balance -110 600 Intake, IV 250 Intake, Oral 240 600 Output, Urine 600 Physical Exam Other Physical Findings: General- well nourished, obese middle aged black woman appearing tired and uncomfortable but in no acute distress HEENT- NCAT, PERRL, EOMI, anicteric sclera, moist mucous membranes Neck- C-collar in place Cardio- Normal S1/S2 w/o m/g/r; tachycardic Pulm-CTA anteriorly Abd- Soft, NT, ND, BS+ Neuro- Awake and alert, oriented x3, CN II-XII grossly intact, sensation/ strength intact Ext- pulses intact, no edema Current Medications: Current Medications Sig/Samina Start time Last Medication Dose Route Stop Time Status Admin Acetaminophen 0 .STK-MED ONE 06/09 1613 DC IV Acetaminophen 650 MG Q6P PRN 06/09 1545 AC PO Acetaminophen 1,000 MG Q6P PRN 06/09 1545 AC 06/10 N/A 1 UNIT IV 0146 Acetaminophen 1,000 MG Q6P PRN 06/09 0000 DC N/A 1 UNIT IV Acetaminophen 650 MG Q6P PRN 06/06 2015 DC 06/07 PO 2115 Albuterol Sulfate 2 PUF Q4-6 PRN PRN 06/09 1245 AC INH Benzocaine/Menthol 1 PAOLO Q2P PRN 06/09 1545 AC PO Benzocaine/Menthol 1 PAOLO Q2P PRN 06/06 2300 DC 06/08 PO 0839 Bisacodyl 10 MG DAILY PRN 06/09 1545 AC RI Bisacodyl 10 MG DAILY NEEDED PRN 06/09 1245 AC RI Bisacodyl 10 MG DAILY PRN 06/07 1130 DC RI Calcium/Vitamin D 500 MG BID 06/09 2100 AC 06/10 PO 0829 Cholecalciferol 1,000 IU DAILY 06/10 0900 AC 06/10 PO 0829 Clindamycin 600 MG IQ8 06/09 1600 AC 06/10 Dextrose/Water 50 ML IV 06/11 0829 0829 Cyclobenzaprine HCl 5 MG TID PRN 06/09 1545 AC 06/10 PO 0829 Cyclobenzaprine HCl 5 MG TID PRN 06/06 2215 DC 06/08 PO 1747 Docusate Sodium 100 MG BID PRN 06/09 1245 AC PO Guaifenesin 10 ML Q4P PRN 06/09 1545 AC PO Guaifenesin 10 ML Q4P PRN 06/07 0230 DC 06/08 PO 1648 Hydromorphone HCl 0 .STK-MED ONE 06/10 0421 DC .ROUTE Hydromorphone HCl 1 MG ONCE ONE 06/10 0415 DC 06/10 IV 06/10 0416 0423 Hydromorphone HCl 0 .STK-MED ONE 06/09 1458 DC .ROUTE Hydromorphone HCl 0 .STK-MED ONE 06/09 1406 DC .ROUTE Hydromorphone HCl 0 .STK-MED ONE 06/09 1336 DC .ROUTE Hydromorphone HCl 0 .STK-MED ONE 06/09 1312 DC .ROUTE Hydromorphone HCl 0 .STK-MED ONE 06/09 1251 DC .ROUTE Lactated Ringer's 1,000 ML Q10H 06/09 1245 AC 06/09 IV 1611 Lactated Ringer's 1,000 ML .[id number] 06/09 0000 DC 06/08 IV 2352 Lidocaine 1 PAT DAILY PRN 06/09 1545 AC EXT Lidocaine 1 PAT DAILY PRN 06/07 2330 DC 06/08 EXT 0919 Lidocaine/Diphenhydr/ 5 ML TID PRN 06/09 1545 AC Alum/Mg/Simeth PO Lidocaine/Diphenhydr/ 5 ML TID PRN 06/08 1400 DC Alum/Mg/Simeth PO Lorazepam 1 MG Q4P PRN 06/09 2245 CAN IV Lorazepam 1 MG ONE TIME ONE 06/09 2245 DC 06/09 IV 06/09 2246 2238 Lorazepam 0 .STK-MED ONE 06/09 2234 DC .ROUTE Magnesium Hydroxide 30 ML Q8P PRN 06/09 1545 AC PO Magnesium Hydroxide 30 ML Q8P PRN 06/07 1130 DC PO Multivitamins 1 TAB DAILY 06/10 0900 AC 06/10 Therapeutic PO 0829 Ondansetron HCl 4 MG Q6P PRN 06/09 1245 AC IV Oxycodone/ 1 TAB Q4P PRN 06/09 1545 AC Acetaminophen PO Oxycodone/ 2 TAB Q6P PRN 06/09 1545 AC 06/10 Acetaminophen PO 0829 Oxycodone/ 2 TAB Q6P PRN 06/08 0930 DC 06/09 Acetaminophen PO 0516 Oxycodone/ 1 TAB Q4P PRN 06/06 2215 DC 06/08 Acetaminophen PO 0839 Phenol 2 SPRAY Q2P PRN 06/09 1545 AC EXT Phenol 2 SPRAY Q2P PRN 06/06 2300 DC 06/09 EXT 0517 Polyethylene Glycol 17 GM BID 06/09 2100 AC 06/10 PO 0829 Polyethylene Glycol 17 GM BID 06/06 2300 DC 06/08 PO 0839 Senna 187 MG AT BEDTIME 06/09 2100 AC 06/09 PO 2022 Senna 187 MG AT BEDTIME 06/07 2100 DC 06/07 PO 2105 Tramadol HCl 50 MG Q6 PRN 06/09 1545 AC 06/10 PO 0004 Tramadol HCl 50 MG Q6 PRN 06/07 0945 DC 06/08 PO 1747 Trimethobenzamide HCl 200 MG Q6P PRN 06/09 1245 AC IM Results Last 24 Hrs Lab/Joey Results: Microbiology 06/10 1006 BLOOD: Blood Culture - ORD 06/10 100 BLOOD: Blood Culture - ORD Olga Lidia Wilcox MD 06/10/18 1115: Attending MD Review Statement Attending Sign Off Attending Cosign Statement: I have: examined this patient, reviewed aval EMR data, personally reviewd images, discussd w/resident/PA/LEGAL CONSULTANT, discussed mgmt plan w/pt, agreed w/resident/ PA/LEGAL CONSULTANT, amended to note. Other Findings: Patient seen and examined, more awake today. Remains tachycardic which is sinus tachycardia. EKG shows sinus tachycardia. Patient was febrile early this morning to 101. Her OR culture from the left hip is growing gram-negative rods. Pt was also c/o urinary frequncy. Vital Signs Date Time Temp Pulse Resp B/P B/P Pulse O2 O2 Flow FiO2 Mean Ox Delivery Rate 06/10 0545 98.9 130 24 128/68 94 Room Air 06/10 0404 100.7 06/10 0205 101.2 128 24 122/68 95 Room Air 06/10 0000 Room Air 06/09 2206 99.0 119 18 120/80 94 Room Air 06/09 2000 98.6 120 20 120/86 96 Room Air 06/09 1859 Room Air Room Air 06/09 1800 99.1 116 20 122/80 94 06/09 1613 98.3 100 18 128/80 96 Room Air on exam; aox3, nad. collar on neck. cv; s1,s2 rrr, tachy resp; clear abd; soft, nt, bs+ ext; no edema peripheral pulses palpable. Labs pending. Assessment and recommendations: 48 y/o F with PMH of asthma, fibromyalgia, OA, depression who presented to the ED for evaluation of sudden onset left lower extremity pain. She is s/p anterior cervical discectomy C5-7 with instrumentation and left illiac crest bone graft on 06/[address] Romo. patient admitted on 06/06 with left flank and thigh pain. S/P Posterior cervical and thoracic laminectomies C5 6 C6 7 T1 2. Instrumented fusion C567 T1 to. Lateral fusion with autologous iliac crest morselized bone graft C5 6 7 T1 tube. Placement of Pineda tongs removal of Pineda tongs use of fluoroscopy. Anterior iliac crest morselized bone harvest. ORIF of fractured anterior iliac spine left side with Dr. Bakari Romo on 06/09/18. Overnight patient was spiking fever and max temperature was up to 101. She was also tachycardic and remains tachycardic in the 120s range. EKG shows sinus tachycardia from yesterday. Patient is septic. she was complaining of some urinary frequency. At this point will obtain urinalysis, urine culture, blood culture. Will continue IV hydration and adequate pain control. We recommend obtaining an infectious disease consult for this gram-negative rods on the OR culture. Will follow up on all the culture results. Continue the rest of the meds. We will monitor and if tachycardia does not resolve with treatment of sepsis or worsen then we might need to transfer to telemetry. DVT px; ALPS.
--- NOTE | 2018-06-10 13:07 | MRI REPORT ---
EXAMINATION: MR THORACIC SPINE WITHOUT CONTRAST CLINICAL INFORMATION: Thoracic stenosis. Thoracic radiculopathy. COMPARISON: Cervical spine MRI 06/02/2018. TECHNIQUE: MRI of the thoracic spine without contrast was obtained. FINDINGS: Recent postoperative changes of a multilevel decompressive laminectomy and spinal fusion with an anterior and posterior hardware construct. There is anatomic alignment and position of the vertebral bodies and posterior elements of the thoracic spine in the sagittal dimension. Vertebral body heights are preserved. No acute bone marrow signal changes. There is disc desiccation at multiple levels without substantial loss of intervertebral disc height. At the mid body T3 level there is focal anterior displacement of the cervical cord and there is a relatively focal contour abnormality along the dorsal surface of the thoracic cord with AP flattening of the cord contour on the axial images. No abnormal intramedullary signal changes. There is a broad left central protrusion at T1-T2 that causes indentation the ventral thecal sac. A few shallow disc protrusions and/or bulging discs are visualized at multiple additional levels within the thoracic spine. No canal or neuroforaminal compromise. The tip of the conus medullaris is located at the level of L1-L2. There is a 0.4 cm calculus located within the gallbladder neck. Grossly no paraspinal soft tissue mass or collection. IMPRESSION: At the mid body T3 level there is focal anterior displacement of the cervical cord and there is a relatively focal contour abnormality along the dorsal surface of the thoracic cord causing a characteristic "scalp sign" on sagittal images. 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 The possibility of a transdural cord herniation associated with a dural defect is felt to be less likely since these are usually located at the intervertebral disc level. Incidental 4 mm calculus within the gallbladder neck.
--- NOTE | 2018-06-10 13:16 | PN- Orthopedic ---
Subjective Subjective: Patient c/o expected postop incisional pain. No new pain. Worse with movement, comfortable with rest. Tolerating po pain meds. Voiding without difficulty. No CP/SOB. Hai. regular diet. No N/V. Mobilized with PT to chair without difficulty. + one time temp of 101.2 and HR between 110 and 130- Sinus Tach. + left hip culture grew gram - rods. Medicine rec. transfer to medicine service and to telemetry unit for monitoring. Recommending IV antibiotics and labs/ blood cultures. ID consult pending. Review of Systems: Remarkable for the above complaints. Objective Vital Signs and I&Os Vital Signs Date Time Temp Pulse Resp B/P B/P Pulse O2 O2 Flow FiO2 Mean Ox Delivery Rate 06/10 08 Room Air 06/10 0545 98.9 130 24 128/68 94 Room Air 06/10 0404 100.7 06/10 0205 101.2 128 24 122/68 95 Room Air 06/10 0000 Room Air 06/09 2206 99.0 119 18 120/80 94 Room Air 06/09 2000 98.6 120 20 120/86 96 Room Air 06/09 1859 Room Air Room Air 06/09 1800 99.1 116 20 122/80 94 /06 1613 98.3 100 18 128/80 96 Room Air Intake & Output 06/10 1600 06/10 0800 06/10 0000 / 1600 06/09 0800 06/09 0000 Intake Total 490 600 480 225 Output Total 600 400 300 Balance -110 600 80 -75 Intake, IV 250 480 Intake, Oral 240 600 225 Number 0 0 Bowel Movements Output, Urine 600 400 300 Physical Exam General Appearance: well developed/nourished, alert, awake, anxious, moderate distress Neck: Incisions C/D/I. Dressings changed. Respiratory: normal breath sounds, no respiratory distress Cardiovascular: regular rate/rhythm Peripheral Pulses: 2+ tibialis posterior (R), 2+ tibialis posterior (L), 2+ dorsalis pedis (R), 2+ dorsalis pedis (L) Abdomen: normal bowel sounds, soft, non-tender Back: left hip incision C/D/I. Dressings changed., no drainage or ecchymosis/ erythema Neurologic/Psychiatric: + left quad weakness when compared to right quad. + PROM intact. Neurovascularly stable with no new or worsening gross motor or sensory loss in mars. UE/LE. Skin: intact, normal color, warm/dry Current Medications: Current Medications Sig/Samina Start time Last Medication Dose Route Stop Time Status Admin Acetaminophen 0 .STK-MED ONE 06/09 1613 DC IV Acetaminophen 650 MG Q6P PRN 06/09 1545 AC PO Acetaminophen 1,000 MG Q6P PRN 06/09 1545 AC 06/10 N/A 1 UNIT IV 0146 Acetaminophen 1,000 MG Q6P PRN 06/09 0000 DC N/A 1 UNIT IV Acetaminophen 650 MG Q6P PRN 06/06 2015 DC 06/07 PO 2115 Albuterol Sulfate 2 PUF Q4-6 PRN PRN 06/09 1245 AC INH Benzocaine/Menthol 1 PAOLO Q2P PRN 06/09 1545 AC PO Benzocaine/Menthol 1 PAOLO Q2P PRN 06/06 2300 DC 06/08 PO 0839 Bisacodyl 10 MG DAILY PRN 06/09 1545 AC CA Bisacodyl 10 MG DAILY NEEDED PRN 06/09 1245 AC CA Bisacodyl 10 MG DAILY PRN 06/07 1130 DC CA Calcium/Vitamin D 500 MG BID 06/09 2100 AC 06/10 PO 0829 Cholecalciferol 1,000 IU DAILY 06/10 0900 AC 06/10 PO 0829 Clindamycin 600 MG IQ8 06/09 1600 AC 06/10 Dextrose/Water 50 ML IV 06/11 0829 0829 Cyclobenzaprine HCl 5 MG TID PRN 06/09 1545 AC 06/10 PO 0829 Cyclobenzaprine HCl 5 MG TID PRN 06/06 2215 DC 06/08 PO 1747 Docusate Sodium 100 MG BID PRN 06/09 1245 AC PO Guaifenesin 10 ML Q4P PRN 06/09 1545 AC PO Guaifenesin 10 ML Q4P PRN 06/07 0230 DC 06/08 PO 1648 Hydromorphone HCl 0 .STK-MED ONE 06/10 0421 DC .ROUTE Hydromorphone HCl 1 MG ONCE ONE 06/10 0415 DC 06/10 IV 06/10 0416 0423 Hydromorphone HCl 0 .STK-MED ONE 06/09 1458 DC .ROUTE Hydromorphone HCl 0 .STK-MED ONE 06/09 1406 DC .ROUTE Hydromorphone HCl 0 .STK-MED ONE 06/09 1336 DC .ROUTE Lactated Ringer's 1,000 ML Q10H 06/09 1245 AC 06/09 IV 1611 Lactated Ringer's 1,000 ML .[id number] 06/09 0000 DC 06/08 IV 2352 Lidocaine 1 PAT DAILY PRN 06/09 1545 AC EXT Lidocaine 1 PAT DAILY PRN 06/07 2330 DC 06/08 EXT 0919 Lidocaine/Diphenhydr/ 5 ML TID PRN 06/09 1545 AC Alum/Mg/Simeth PO Lidocaine/Diphenhydr/ 5 ML TID PRN 06/08 1400 DC Alum/Mg/Simeth PO Lorazepam 1 MG Q4P PRN 06/09 2245 CAN IV Lorazepam 1 MG ONE TIME ONE 06/09 2245 DC 06/09 IV 06/09 2246 2238 Lorazepam 0 .STK-MED ONE 06/09 2234 DC .ROUTE Magnesium Hydroxide 30 ML Q8P PRN 06/09 1545 AC PO Magnesium Hydroxide 30 ML Q8P PRN 06/07 1130 DC PO Multivitamins 1 TAB DAILY 06/10 0900 AC 06/10 Therapeutic PO 0829 Ondansetron HCl 4 MG Q6P PRN 06/09 1245 AC IV Oxycodone/ 1 TAB Q4P PRN 06/09 1545 AC Acetaminophen PO Oxycodone/ 2 TAB Q6P PRN 06/09 1545 AC 06/10 Acetaminophen PO 0829 Oxycodone/ 2 TAB Q6P PRN 06/08 0930 DC 06/09 Acetaminophen PO 0516 Oxycodone/ 1 TAB Q4P PRN 06/06 2215 DC 06/08 Acetaminophen PO 0839 Phenol 2 SPRAY Q2P PRN 06/09 1545 AC EXT Phenol 2 SPRAY Q2P PRN 06/06 2300 DC 06/09 EXT 0517 Polyethylene Glycol 17 GM BID 06/09 2100 AC 06/10 PO 0829 Polyethylene Glycol 17 GM BID 06/06 2300 DC 06/08 PO 0839 Senna 187 MG AT BEDTIME 06/09 2100 AC 06/09 PO 2022 Senna 187 MG AT BEDTIME 06/07 2100 DC 06/07 PO 2105 Tramadol HCl 50 MG Q6 PRN 06/09 1545 AC 06/10 PO 1234 Tramadol HCl 50 MG Q6 PRN 06/07 0945 DC 06/08 PO 1747 Trimethobenzamide HCl 200 MG Q6P PRN 06/09 1245 AC IM Assessment/Plan Assessment/Plan Assessment:1. S/p ACDF C5-C7/PCDF C5-7 and T1-2 with Instr/ICBG 2. S/p ORIF left ASIS traumatic avulsion fracture 3. Severe osteoporosis 4. Suspected + wound culture left hip 5. Sinus tachycardia Plan: Transfer to Medical Service Transfer to Tele for monitoring Continue IV antibiotics until ID rec. broad spectrum change Sepsis W/U incl. Ucx and blood cultures pending. Continue PT for ambulation with walker Continue daily dressing changes. Problem List: 1. Fibromyalgia 2. Asthma 3. Endometriosis 4. Allergic rhinitis 5. Depression 6. Insomnia Core Measures Venous Thromboembolism VTE Risk Factors Age>40 No Mechanical VTE Prophylaxis d/t N/A MechProphylax Ordered No VTE Pharm Prophylaxis d/t NA PharmProphylax ordered Attending MD Review Statement Attending Statement Attending MD Statement: examined this patient, discuss w/resident/PA/MANAGER QUALITY SYSTEMS, agreed w/resident/PA/MANAGER QUALITY SYSTEMS
[2018-06-10 13:29] VITALS: BP 130/60
--- NOTE | 2018-06-10 14:40 | Sepsis Event Note ---
Sepsis Event Note Severe Sepsis Severe Sepsis Present: No Septic Shock Septic Shock Present: No Event Note Event Note: Situation: Patient is tachycardic and febrile with OR cultures demonstrating growth of gram negative rods Background: 48 year old woman with multiple medical problems admitted for an elective orthopedic procedure with grafting with subsequent discharge to home and readmission for left flank/hip pain with revision and washout found to be tachycardic, febrile, with positive cultures. Assessment: Patient meets sepsis criteria through tachycardia, temperature, with OR culture demonstrating growth gram negative rods. Case discussed with surgical PA whom recommended transfer to the medical service for treatment of her sepsis. Case discussed with attending Dr. Wilcox who agreed. Infectious disease health and safety consultant Dr. Ramos was contacted - case discussed; broad spectrum antibiotics were recommended (Vancomycin / Ceftazidime). Patient has poor peripheral access for which consent for a central venous catheter was obtained and subsequently placed. Pulmonary embolism should be considered given her tachycardia and temperature in the context of multiple recent surgeries, immobilization, and no pharmacological DVT prophylaxis due to her surgeries. Patient has poor peripheral access for which a central venous catheter is placed. D-Dimer will be high given her surgeries and sepsis. CTA chest with PE protocol should be considered. Recommendations: -Transfer to medical service on telemetry floor -Telemetry monitoring -Right femoral TLC catheter for access -Stop Clindamycin -Start Vancomycin / Ceftazidime -CBC, BMP, UA, lactic acid x2 -Blood cultures x2, urine cultures -ID consult to see in AM -Consider CTA chest with PE protocol once access is obtained and if clinical suspicion is high Sepsis Focused Exam Sepsis Cardiac Exam: Tachycardia Sepsis Resp Exam: CTA Sepsis Cap Refill Exam: <2 Sec Sepsis Peripheral Pulse Exam: Normal Sepsis Peripheral Pulse Location: Radial Sepsis Skin Exam (color): Normal for Ethnicity Skin Temp/Moisture Exam: Warm/Dry
[2018-06-10 15:00] VITALS: BP 130/80
--- NOTE | 2018-06-10 16:35 | Procedure ---
Minor Surgical Procedure Note Date of Procedure: 06/10/18 Procedure Note: Central line placement via right femoral vein Indication: no peripheral access, requiring iv antibiotics and frequent blood draws Ultrasound guidance used to isolate femoral vessels. Area prepped and draped in sterile fashion. Local anesthestic used to anesthetize the right groin area. Right femoral vein isolated via ultrasound guidance, and triple lumen catheter placed without difficulty. All 3 ports withdraw and flush easily. Line secured with sutures. Dressing placed over line in right groin. Patient tolerated procedure without difficulty. d/w Mayela Arreguin, who will communicate with It appears she was transferred to
--- NOTE | 2018-06-10 18:10 | Discharge Summary ---
Visit Information Visit Dates Admission Date: 06/07/18 Hospital Course Course Attending Physician: Demetrius CURTIS,Bakari Primary Care Physician: Unknown Hospital Course: 48-year-old female with a past medical history of asthma, disc herniations, degenerative joint disease, spinal stenosis, fibromyalgia, diabetes mellitus?, Osteoarthritis, recent anterior cervical decompression and fusion surgery of C5- C7 and iliac crest bone harvesting done on June 03, 2018, was brought in by ambulance for left flank and thigh pain 1 day. Allergies: Coded Allergies: Penicillins (Severe, anaphylaxis 06/06/18) nut - unspecified (Severe, ANAPHYLAXIS 06/06/18) pineapple (Severe, anaphylaxis 06/06/18) Uncoded Allergies: chlorine (Severe, anaphylaxis 05/03/18) Significant Procedures: MRI-THORACIC SPINE - At the mid body T3 level there is focal anterior displacement of the cervical cord and there is a relatively focal contour abnormality along the dorsal surface of the thoracic cord causing a characteristic "scalp sign" on sagittal images. 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 The possibility of a transdural cord herniation associated with a dural defect is felt to be less likely since these are usually located at the intervertebral disc level. Incidental 4 mm calculus within the gallbladder neck. Discharge Instructions General Discharge Information Code Status: Full Code Patient's Diet: regular Patient's Activity: ad wilner Follow-Up Instructions/Appts: Please follow up with your PCP within one week. Please follow up with Medications at Discharge Discharge Medications: Stop taking the following medications: Oxycodone HCl/Acetaminophen (Percocet 5-325 MG Tablet) 5 MG-325 MG TABLET ORAL EVERY 4-6 HOURS as needed for PAIN Qty = 90 Continue taking these medications: Albuterol Sulfate (Ventolin Hfa) 90 MCG HFA.AER.AD 2 Puff Inhale through mouth EVERY 4-6 HOURS NEEDED as needed for ASTHMA Comments: NOT GIVEN DURING THIS HOSPITAL STAY Acetaminophen (Tylenol Extra Strength) 500 MG TABLET 1 Tablet ORAL THREE TIMES DAILY as needed for TEMP>101 Qty = 90 Comments: NOT GINE Bisacodyl (Dulcolax) 10 MG SUPP.RECT 1 Suppository RECTAL DAILY as needed for CONSTIPATION Qty = 10 Comments: NOT GIVEN Calcium Carbonate/Vitamin D3 (Os-Oliver 500+D3 Caplet) 500 MG-200 TABLET 1 Tablet ORAL TWICE DAILY Qty = 60 Comments: NOT GIVEN Cholecalciferol (Vitamin D3) 1,000 UNIT TABLET 1 Tablet ORAL DAILY Qty = 30 Comments: Last Taken: 755 Time: 06/04/18 Docusate Sodium (Colace) 100 MG CAPSULE 1 Capsule ORAL TWICE DAILY as needed for CONSTIPATION Qty = 60 Comments: Last Taken: 06/04/18 Time: 075 Magnesium Hydroxide (Milk Of Magnesia) 400 MG/5 ML ORAL.SUSP 5 Milliliters ORAL EVERY 8 HOURS NEEDED as needed for CONSTIPATION Qty = 300 Comments: NOT GIVEN Multiple Vitamin (Multivitamins) 1 EACH TABLET 1 Tablet ORAL DAILY Qty = 30 Comments: Last Taken: 06/04/18 Time: 075 Start taking the following new medications: Cyclobenzaprine HCl (Cyclobenzaprine HCl) 5 MG TABLET 5 Milligram ORAL THREE TIMES DAILY as needed for leg pain Qty = 90 No Refills Guaifenesin (Guaifenesin) 100 MG/5 ML LIQUID 10 Milliliters ORAL EVERY 4 HOURS NEEDED as needed for COUGH Qty = 1 No Refills Benzocaine/Menthol (Chloraseptic Sore Throat Lozng) 6 MG-10 MG LOZENGE 1 Lozenge ORAL EVERY 2 HOURS NEEDED as needed for Sore Throat Qty = 60 No Refills Chloraseptic (Phenaseptic) 1.4 % SPRAY 2 [place] ON SKIN EVERY 2 HOURS NEEDED as needed for PAIN Qty = 1 No Refills Polyethylene Glycol 3350 (Miralax) 17 GRAM/DOSE POWDER 17 Gram ORAL TWICE DAILY Qty = 1 No Refills Lidocaine (Lidoderm) 5 % ADH..PATCH 1 Patch ON SKIN DAILY as needed for PAIN SCALE 1-3 (MILD) Qty = 90 No Refills Oxycodone HCl/Acetaminophen (Percocet 5-325 MG Tablet) 5 MG-325 MG TABLET 1-2 Tablet ORAL EVERY 4-6 HOURS as needed for PAIN Qty = 90 No Refills Copies To: Unknown
[2018-06-10 20:15] LABS: ABSOLUTE BASOPHIL COUNT 0 /CUMM (0.0-0.2); ABSOLUTE EOSINOPHIL COUNT 0 /CUMM (0.0-0.7); ABSOLUTE GRANULOCYTE CT 12.5 /CUMM (1.4-6.5); ABSOLUTE MONOCYTE COUNT 0.8 /CUMM (0.10-0.60); BASOPHIL % 0.2 % (0.0-2.0); EOSINOPHIL % 0.1 % (0-5); HEMATOCRIT 36.8 % (37-47); MEAN CORPUSCULAR HGB 28.8 PG (27.0-31.0); MEAN CORPUSCULAR HGB CONC 33.1 G/DL (33.0-37.0); MEAN CORPUSCULAR VOLUME 86.9 FL (81.0-99.0); RBC DISTRIBUTION WIDTH 13.8 % (11.5-14.5); RED BLOOD CELL CT 4.24 /CUMM (4.20-5.40)
[2018-06-10 21:08] LABS: WHITE BLOOD CELL COUNT 14.3 /CUMM (4.8-10.8)
[2018-06-10 21:09] LABS: GRANULOCYTE % 87.3 % (42.2-75.2)
[2018-06-10 22:23] VITALS: BP 128/86
[2018-06-11 06:30] VITALS: BP 118/76
--- NOTE | 2018-06-11 08:34 | PN- Housestaff ---
Colin Saxena 06/11/18 0834: Subjective Follow-up For: -Sepsis with Gram negative rods from OR culture -Sinus Tachycardia, likely due to sepsis -Intractible Left flank/thigh pain with numbness after procedure -S/P Anterior Cervical decompression with fusion C5-C7 with iliac crest bone graft (06/03/18) Complaints: pain scale (0-10) Tele-Events Since Last Visit: Sinus tachycardia with heart rate varying between 100-120 Subjective: Patient was seen and examined this morning. She is alert awake and oriented to time place and person. no acute events noticed overnight. Patient still continues to be in sinus tachycardia. She denied any chest pain, palpitations or short of breath. She appears comfortable this morning, she was eating breakfast. She reports 8 out of 10 pain of left hip. She reports neck discomfort. She does not have any other specific complaints. Vitals were reviewed, stable except for sinus tach Review of Systems Constitutional: Denies: see HPI. Objective Last 24 Hrs of Vital Signs/I&O Vital Signs Date Time Temp Pulse Resp B/P B/P Pulse O2 O2 Flow FiO2 Mean Ox Delivery Rate 06/11 0630 98.7 110 18 118/76 96 Room Air 06/10 2352 99.8 06/10 2302 99.8 06/10 2223 100.9 126 19 128/86 97 06/10 2200 101.8 06/10 2146 100.9 / 1500 99.9 118 18 130/80 93 Room Air 06/10 1329 99.2 113 20 130/60 95 Room Air Intake & Output 06/11 1600 06/11 0800 06/11 0000 Intake Total 1250 980 Output Total 300 800 375 Balance -300 450 605 Intake, IV 850 500 Intake, Oral 400 480 Output, Urine 300 800 375 Patient 104.44 kg Weight Physical Exam General Appearance: Alert, Oriented X3, Cooperative, No Acute Distress Other Physical Findings: General- well nourished, obese middle aged black woman appearing tired and uncomfortable but in no acute distress HEENT- NCAT, PERRL, EOMI, anicteric sclera, moist mucous membranes Neck- C-collar in place Cardio- Normal S1/S2 w/o m/g/r; tachycardic Pulm-CTA anteriorly Abd- Soft, NT, ND, BS+ Neuro- Awake and alert, oriented x3, CN II-XII grossly intact, sensation/ strength intact Ext- pulses intact, no edema Current Medications: Current Medications Sig/Samina Start time Last Medication Dose Route Stop Time Status Admin Acetaminophen 650 MG Q6P PRN 06/09 1545 PO Acetaminophen 1,000 MG Q6P PRN 06/09 1545 06/10 N/A 1 UNIT IV 2146 Albuterol Sulfate 2 PUF Q4-6 PRN PRN 06/09 1245 AC INH Benzocaine/Menthol 1 PAOLO Q2P PRN 06/09 1545 06/11 PO 0028 Bisacodyl 10 MG DAILY PRN 06/09 1545 DE Bisacodyl 10 MG DAILY NEEDED PRN 06/09 1245 DE Calcium/Vitamin D 500 MG BID 06/09 2100 AC 06/11 PO 0847 Ceftazidime 2,000 MG Q8H 06/11 0000 AC 06/11 IV 0800 Ceftazidime 2,000 MG Q8H 06/10 1700 DC 06/10 IV 1721 Cholecalciferol 1,000 IU DAILY 06/10 09 AC 06/11 PO 0847 Clindamycin 600 MG IQ8 06/09 1600 DC 06/10 Dextrose/Water 50 ML IV 06/11 0829 0829 Cyclobenzaprine HCl 5 MG TID PRN 06/09 1545 06/10 PO 0829 Docusate Sodium 100 MG BID PRN 06/09 1245 PO Guaifenesin 10 ML Q4P PRN 06/09 1545 PO Hydromorphone HCl 1 MG ONCE ONE 06/10 1445 DC 06/10 IV 06/10 1446 1448 Lactated Ringer's 1,000 ML Q10H 06/09 1245 06/10 IV 2101 Lidocaine 1 PAT DAILY PRN 06/09 1545 AC EXT Lidocaine/Diphenhydr/ 5 ML TID PRN 06/09 1545 AC Alum/Mg/Simeth PO Magnesium Hydroxide 30 ML Q8P PRN 06/09 1545 PO Meropenem 1 GM IQ8 06/11 0000 CAN IV Multivitamins 1 TAB DAILY 06/10 0900 AC 06/11 Therapeutic PO 0847 Ondansetron HCl 4 MG Q6P PRN 06/09 1245 AC IV Oxycodone/ 1 TAB Q4P PRN 06/09 1545 AC Acetaminophen PO Oxycodone/ 2 TAB Q6P PRN 06/09 1545 AC 06/11 Acetaminophen PO 0057 Phenol 2 SPRAY Q2P PRN 06/09 1545 AC EXT Polyethylene Glycol 17 GM BID 06/09 2100 AC 06/11 PO 0847 Senna 187 MG AT BEDTIME 06/09 2100 AC 06/10 PO 2106 Tramadol HCl 50 MG Q6 PRN 06/09 1545 AC 06/11 PO 0615 Trimethobenzamide HCl 200 MG Q6P PRN 06/09 1245 AC IM Vancomycin HCl 1,500 MG Q12H 06/10 1700 AC 06/11 Sodium Chloride 250 ML IV 0452 Vancomycin HCl 1,500 MG DAILY 06/10 1415 DC Sodium Chloride 250 ML IV Last 24 Hrs of Lab/Joey Results Last 24 Hrs of Labs/Mics: Laboratory Tests 06/11/18 0650: Anion Gap 5, Estimated GFR > 60, BUN/Creatinine Ratio 15.0, CBC w Diff NO MAN DIFF REQ, RBC 4.02 L, MCV 88.1, MCH 29.0, MCHC 32.9 L, RDW 14.2, MPV 8.5, Gran % 79.7 H, Lymphocytes % 11.2 L, Monocytes % 8.4, Eosinophils % 0.6, Basophils % 0.1, Absolute Granulocytes 8.9 H, Absolute Lymphocytes 1.3, Absolute Monocytes 0.9 H, Absolute Eosinophils 0.1, Absolute Basophils 0 06/10/18 1950: RBC 4.24, MCV 86.9, MCH 28.8, MCHC 33.1, RDW 13.8, Gran % 87.3 H, Lymphocytes % 6.7 L, Monocytes % 5.7, Eosinophils % 0.1, Basophils % 0.2, Absolute Granulocytes 12.5 H, Absolute Lymphocytes 1.0 L, Absolute Monocytes 0.8 H, Absolute Eosinophils 0, Absolute Basophils 0 06/10/18 1715: Anion Gap 8, Estimated GFR > 60, BUN/Creatinine Ratio 15.0 06/10/18 1650: Urine Color YEL, Urine Clarity HAZY H, Urine pH 6.0, Ur Specific [place] >= 1.030, Urine Protein NEG, Urine Ketones NEG, Urine Nitrite NEG, Urine Bilirubin NEG, Urine Urobilinogen 0.2, Ur Leukocyte Esterase NEG, Ur Microscopic SEDIMENT EXAMINED, Urine RBC 1-3, Urine WBC 1-3 H, Ur Epithelial Cells MOD H, Urine Bacteria MANY H, Urine Mucus FEW, Urine Hemoglobin NEG, Urine Glucose 500 H 06/10/18 1300: Lactic Acid Cancelled 06/10/18 1119: Sodium Cancelled, Potassium Cancelled, Chloride Cancelled, Carbon Dioxide Cancelled, Anion Gap Cancelled, BUN Cancelled, Creatinine Cancelled, BUN/ Creatinine Ratio Cancelled Microbiology 06/10 1740 BLOOD: Blood Culture - RECD 06/10 1705 BLOOD: Blood Culture - RECD 06/10 1650 URINE ROUT: Urine Culture - RES GRAM POSITIVE COCCI GRAM NEGATIVE RODS Assessment/Plan Assessment: 48 year old woman with multiple medical problems significant for extensive spinal orthopedic disease brought in by ambulance for left flank / left thigh pain after walking when she heard a "pop" resulting in inability to ambulate and left thigh numbness. She is s/p anterior cervical discectomy C5-7 with instrumentation and left illiac crest bone graft on 06/[address] Romo. Post operatively patient was mildly confused most likely due to anesthesia and found to be tachycardic. EKG demonstrated sinus tachycardia to the 100s and TMAX 101.2. Patient met sepsis criteria through tachycardia and temperature with probable source being the gram negative infection. Patient was transfered to telemetry for further evaluation of her sinus tachycardia. Problem List -Sepsis with Gram negative rods from OR culture -Sinus Tachycardia, likely due to sepsis -S/P Posterior cervical / thoracic laminectomies C5-T2 with fusion (06/09/18) -Traumatic avulsion of left ASI s/p decompression/fusion (06/09/18) -Intractible Left flank/thigh pain with numbness after procedure -S/P Anterior Cervical decompression with fusion C5-C7 with iliac crest bone graft (06/03/18) -Severe osteoporosis -T1-T2 disc herniation with cord compression -DJD -Spinal Stenosis -Osteoarthritis -Fibromyalgia -Asthma Recommendations -Post operative care per orthopedics -Cervical collar per orthopedics -Incentive spirometry -OOB to chair -Continue IV fluids for now -Continue Vancomycin and Ceftaz day2 -f/u id recommendations -f/u final blood cultures x2 and Urine culture. - Urine culture positive for gram-negative rods and gram-positive cocci. OR cultures positive for gram-negative rods, pending final results -PT evaluation -Bowel regimen -Pain control with acetaminophen, flexeril, lidocaine, tramadol, percocet -Mechanical DVT PPx Problem List: 1. Lower extremity pain, left Pain Ratin Pain Location: left hhip Pain Goal: Remain pain free Pain Plan: percocet Tomorrow's Labs & Rationales: cbc bep Brenden CURTIS,Olga Lidia 06/11/18 1543: Attending MD Review Statement Attending Statement Attending MD Statement: examined this patient, discuss w/resident/PA/FILTER ASSEMBLER, agreed w/resident/PA/FILTER ASSEMBLER, discussed with family, reviewed EMR data (avail), discussed with nursing, discussed with case mgmt, reviewed images, amended to note Attending Assessment/Plan: Patient seen and examined, still complains of pain everywhere in the body especially in the neck and the left hip area. Urine culture growing gram- negative rods and gram-positive cocci. OR culture grew Proteus. Vital Signs Date Time Temp Pulse Resp B/P B/P Pulse O2 O2 Flow FiO2 Mean Ox Delivery Rate 06/11 1514 99.1 118 18 138/70 96 Room Air 06/11 0630 98.7 110 18 118/76 96 Room Air 06/10 2352 99.8 06/10 2302 99.8 06/10 2223 100.9 126 19 128/86 97 06/10 2200 101.8 06/10 2146 100.9 on exam; aox3, nad. cv; s1, s2, rrr, tachy. resp; clear abd; soft, nt, bs+ ext; no edema neck collar and dressing on left inguinal area. Laboratory Tests 06/11 06/10 06/10 0650 1950 1715 Chemistry Sodium (137 - 145 mmol/L) 133 L 135 L Potassium (3.5 - 5.1 mmol/L) 4.3 4.3 Chloride (98 - 107 mmol/L) 98 96 L Carbon Dioxide (22 - 30 mmol/L) 31 H 30 Anion Gap (5 - 16) 5 8 BUN (7 - 17 mg/dL) 9 9 Creatinine (0.5 - 1.0 mg/dL) 0.6 0.6 Estimated GFR (>60 ml/min) > 60 > 60 BUN/Creatinine Ratio (7 - 25 %) 15.0 15.0 TSH (0.270 - 4.200 uIU/mL) 1.070 Thyroxine (T4) (4.5 - 10.9 ug/dL) 7.8 Hematology CBC w Diff NO MAN DIFF REQ WBC (4.8 - 10.8 /CUMM) 11.2 H 14.3 H RBC (4.20 - 5.40 /CUMM) 4.02 L 4.24 Hgb (12.0 - 16.0 G/DL) 11.6 L 12.2 Hct (37 - 47 %) 35.4 L 36.8 L MCV (81.0 - 99.0 FL) 88.1 86.9 MCH (27.0 - 31.0 PG) 29.0 28.8 MCHC (33.0 - 37.0 G/DL) 32.9 L 33.1 RDW (11.5 - 14.5 %) 14.2 13.8 Plt Count (130 - 400 /CUMM) 280 MPV (7.4 - 10.4 FL) 8.5 Gran % (42.2 - 75.2 %) 79.7 H 87.3 H Lymphocytes % (20.5 - 51.1 %) 11.2 L 6.7 L Monocytes % (1.7 - 9.3 %) 8.4 5.7 Eosinophils % (0 - 5 %) 0.6 0.1 Basophils % (0.0 - 2.0 %) 0.1 0.2 Absolute Granulocytes (1.4 - 6.5 /CUMM) 8.9 H 12.5 H Absolute Lymphocytes (1.2 - 3.4 /CUMM) 1.3 1.0 L Absolute Monocytes (0.10 - 0.60 /CUMM) 0.9 H 0.8 H Absolute Eosinophils (0.0 - 0.7 /CUMM) 0.1 0 Absolute Basophils (0.0 - 0.2 /CUMM) 0 0 09/07 1650 Urines Urine Color (YEL,AMB,STR) YEL Urine Clarity (CLEAR) HAZY H Urine pH (5.0 - 8.0) 6.0 Ur Specific [place] (1.001 - 1.035) >= 1.030 Urine Protein (NEG,<30 MG/DL) NEG Urine Ketones (NEG) NEG Urine Nitrite (NEG) NEG Urine Bilirubin (NEG) NEG Urine Urobilinogen (0.1 - 1.0 EU/dl) 0.2 Ur Leukocyte Esterase (NEG) NEG Ur Microscopic SEDIMENT EXAMINED Urine RBC (0 - 5 /HPF) 1-3 Urine WBC (0 - 2 /HPF) 1-3 H Ur Epithelial Cells (NONE,FEW) MOD H Urine Bacteria (NEG/NONE) MANY H Urine Mucus (FEW,NONE) FEW Urine Hemoglobin (NEG) NEG Urine Glucose (N MG/DL) 500 H A/P; 48 y/o F with PMH of asthma, fibromyalgia, OA, depression who presented to the ED for evaluation of sudden onset left lower extremity pain. She is s/p anterior cervical discectomy C5-7 with instrumentation and left illiac crest bone graft on 06/[address] Romo. patient admitted on 06/06 with left flank and thigh pain. S/P Posterior cervical and thoracic laminectomies C5 6 C6 7 T1 2. Instrumented fusion C567 T1 to. Lateral fusion with autologous iliac crest morselized bone graft C5 6 7 T1 tube. Placement of Pineda tongs removal of Pineda tongs use of fluoroscopy. Anterior iliac crest morselized bone harvest. ORIF of fractured anterior iliac spine left side with Dr. Bakari Romo on 06/09/18. Operating room culture growing Proteus. Patient also has a UTI with enterococcus as well as gram-negative rods. Appreciate infectious disease input. Will continue current antibiotics and follow up on cultures. Continue gentle IV hydration. Patient remains in sinus tachycardia. We will check thyroid studies and that is normal. This could be secondary to pain and fever as well as sepsis. If tachycardia continues then will consider echocardiogram and cardiology consult. Continue current pain management. Physical therapy. Bowel regimen. Mechanical DVT prophylaxis. Discussed with patient's mother at bedside.
[2018-06-11 08:36] LABS: ABSOLUTE BASOPHIL COUNT 0 /CUMM (0.0-0.2); ABSOLUTE EOSINOPHIL COUNT 0.1 /CUMM (0.0-0.7); ABSOLUTE GRANULOCYTE CT 8.9 /CUMM (1.4-6.5); ABSOLUTE LYMPH COUNT 1.3 /CUMM (1.2-3.4); ABSOLUTE MONOCYTE COUNT 0.9 /CUMM (0.10-0.60); BASOPHIL % 0.1 % (0.0-2.0); EOSINOPHIL % 0.6 % (0-5); GRANULOCYTE % 79.7 % (42.2-75.2); HEMATOCRIT 35.4 % (37-47); MEAN CORPUSCULAR HGB CONC 32.9 G/DL (33.0-37.0); MEAN CORPUSCULAR VOLUME 88.1 FL (81.0-99.0); MEAN PLATELET VOLUME 8.5 FL (7.4-10.4); PLATELET COUNT 280 /CUMM (130-400); RBC DISTRIBUTION WIDTH 14.2 % (11.5-14.5); RED BLOOD CELL CT 4.02 /CUMM (4.20-5.40); WHITE BLOOD CELL COUNT 11.2 /CUMM (4.8-10.8)
--- NOTE | 2018-06-11 09:25 | PN- Student ---
Claribel Chavira 06/11/18 0908: Subjective Subjective: Pt is complaining of pain in her neck and left hip. Pain is about 7/10 and worse with movement. She got out of bed yd to use the commode which was extremely painful for her. Still complaining of weakness in her left leg along with some numbness. Complaining of a fever over night, temp was 99.8 with associated chills and sweats. She is tolerating her diet well and passing gas. Has no issues urinating. Denies any CP, SOB, difficulty breathing, abdominal pain or dizziness. Objective Objective: Vitals: See EMR Gen: Middle aged woman, sitting up in bed, eating breakfast, cervical collar in place, NAD. Neck: Collar in place. Dressing clean dry and intact. Steri strips in place over wound with no evidence of edema, warmth, or discharge. Cardio: S1 and S2. No murmurs rubs or gallops. Tachycardic to 112. Regular rhythm Pulm: Clear breath sounds anteriorly and posteriorly with no wheezes, rhonchi or rales. Abdomen: Soft, round, non-distended. Normoactive bowel sounds. Non-tender to palpation. Extremities: Dressing clean, dry and intact over the left hip. Incision is clean with no edema, warmth or discharge. R femoral line in place with no warmth, discharge or erythema. Calves are soft and non-tender bilaterally. ALPs in place. DP and PT pulses palpable. 4/5 dorsi and plantar flexion on the right and 3/5 on the left. Gross motor and sensation intact and equal bilaterally in the upper and lower extremities. Results Results: Laboratory Tests 06/11/18 0650: Anion Gap 5, Estimated GFR > 60, BUN/Creatinine Ratio 15.0, CBC w Diff NO MAN DIFF REQ, RBC 4.02 L, MCV 88.1, MCH 29.0, MCHC 32.9 L, RDW 14.2, MPV 8.5, Gran % 79.7 H, Lymphocytes % 11.2 L, Monocytes % 8.4, Eosinophils % 0.6, Basophils % 0.1, Absolute Granulocytes 8.9 H, Absolute Lymphocytes 1.3, Absolute Monocytes 0.9 H, Absolute Eosinophils 0.1, Absolute Basophils 0 06/10/18 1950: RBC 4.24, MCV 86.9, MCH 28.8, MCHC 33.1, RDW 13.8, Gran % 87.3 H, Lymphocytes % 6.7 L, Monocytes % 5.7, Eosinophils % 0.1, Basophils % 0.2, Absolute Granulocytes 12.5 H, Absolute Lymphocytes 1.0 L, Absolute Monocytes 0.8 H, Absolute Eosinophils 0, Absolute Basophils 0 06/10/18 1715: Anion Gap 8, Estimated GFR > 60, BUN/Creatinine Ratio 15.0 06/10/18 1650: Urine Color YEL, Urine Clarity HAZY H, Urine pH 6.0, Ur Specific [place] >= 1.030, Urine Protein NEG, Urine Ketones NEG, Urine Nitrite NEG, Urine Bilirubin NEG, Urine Urobilinogen 0.2, Ur Leukocyte Esterase NEG, Ur Microscopic SEDIMENT EXAMINED, Urine RBC 1-3, Urine WBC 1-3 H, Ur Epithelial Cells MOD H, Urine Bacteria MANY H, Urine Mucus FEW, Urine Hemoglobin NEG, Urine Glucose 500 H 06/10/18 1300: Lactic Acid Cancelled 06/10/18 1119: Sodium Cancelled, Potassium Cancelled, Chloride Cancelled, Carbon Dioxide Cancelled, Anion Gap Cancelled, BUN Cancelled, Creatinine Cancelled, BUN/ Creatinine Ratio Cancelled Microbiology 06/10 1740 BLOOD: Blood Culture - RECD 06/10 170 BLOOD: Blood Culture - RECD 06/10 1650 URINE ROUT: Urine Culture - RES GRAM POSITIVE COCCI GRAM NEGATIVE RODS 06/10 1006 BLOOD: Blood Culture - CAN Cancelled: Cancelled via OE: Duplicate Order 06/09 835 TRUNK/O.R.: Culture & Sensitivity - RES GRAM NEGATIVE RODS 06/09 835 TRUNK/O.R.: Gram Stain - RES 06/09 835 MISC O.R.: Miscellaneous Culture - CAN Cancelled: OE 06/09 835 MISC O.R.: Gram Stain - CAN Cancelled: OE 06/09 08 URINE ROUT: Urine Culture - RES GRAM POSITIVE COCCI Assessment/Plan Assessment: 48 yo F POD#2 S/p ACDF C5-C7/PCDF C5-7 and T1-2 with iliac crest bone graft for cervical stenosis and ORIF for left anterior superior iliac spine traumatic avulsion fracture. Pt noted to be tachycardic over the course of her stay and had a positive wound culture from her left hip so the patient was transferred to medical service and femoral line was placed. Sinus tachycardia most likely secondary to sepsis. Plan: Pt being followed by medical service. Continue IV antibiotics. continue to monitor and control pain as needed. Follow up labs and blood cultures. Encourage ambulation with PT. Dressing changed, continue with daily dressing changes. ALPs for DVT ppx. Encourage incentive spirometry use. Will discuss with attending and surgical PAs Brandi Austin 06/11/18 1246: Assessment/Plan Plan: Pt seen, agree with above PA student assessment OR cultures/sensitivities have just returned, awaiting urine sensitivities Antibiotics per ID/medical service Daily dry dressing changes Continue PT
--- NOTE | 2018-06-11 11:22 | Cons- Infect Disease ---
General Information and HPI Consulting Request Date of Consult: 06/11/18 Requested By: Bakari Romo MD Reason for Consult: fever Source of Information: primary team Exam Limitations: clinical condition History of Present Illness: 48 y/o female who is 4 days s/p ACDF C5-7 with Instrumentation and left ICBG on 06/03/18, was discharged on 06/04/18 in stable condition; planned staged posterior cervical decompression/fusion planned for 06/09/18 due to severe osteoporosis discovered during her anterior procedure, is currently in the hospital, initial on surgical service; s/p revision sx. The day before admission she recalls losing her balance and bumping her left hip into the bed while attempting to get in. Also c/o cough, which has aggravated both her neck and left hip pain. She states that she heard a "pop" in her left hip, after a coughing spell and experienced swelling in her proximal thigh as well as severe pain and difficulty bearing weight. She then called 911 and presented to the ER for evaluation. Her CT scan of her left pelvis shows slight inferior displacement of the left anterior-superior iliac spine with expected postoperative changes. Spiked fever this admission on 06/10. She reports 8 out of 10 pain of left hip and neck discomfort. No urinary sx. Allergies/Medications Allergies: Coded Allergies: Penicillins (Severe, anaphylaxis 06/06/18) nut - unspecified (Severe, ANAPHYLAXIS 06/06/18) pineapple (Severe, anaphylaxis 06/06/18) Uncoded Allergies: chlorine (Severe, anaphylaxis 05/03/18) Home Med List: Acetaminophen (Tylenol Extra Strength) 500 MG TABLET 1 TAB PO TID PRN TEMP>101 Albuterol Sulfate (Ventolin Hfa) 90 MCG HFA.AER.AD 2 PUF INH Q4-6 PRN PRN ASTHMA (Reported) Benzocaine/Menthol (Chloraseptic Sore Throat Lozng) 6 MG-10 MG LOZENGE 1 PAOLO PO Q2P PRN Sore Throat Bisacodyl (Dulcolax) 10 MG SUPP.RECT 1 SUP RC DAILY PRN CONSTIPATION Calcium Carbonate/Vitamin D3 (Os-Oliver 500+D3 Caplet) 500 MG-200 TABLET 1 TAB PO BID [facility] Chloraseptic (Phenaseptic) 1.4 % SPRAY 2 SPRAY EXT Q2P PRN PAIN Cholecalciferol (Vitamin D3) 1,000 UNIT TABLET 1 TAB PO DAILY BONE HEALTH Cyclobenzaprine HCl 5 MG TABLET 5 MG PO TID PRN leg pain Docusate Sodium (Colace) 100 MG CAPSULE 1 CAP PO BID PRN CONSTIPATION Guaifenesin 100 MG/5 ML LIQUID 10 ML PO Q4P PRN COUGH Lidocaine (Lidoderm) 5 % ADH..PATCH 1 PAT EXT DAILY PRN PAIN SCALE 1-3 (MILD) Magnesium Hydroxide (Milk Of Magnesia) 400 MG/5 ML ORAL.SUSP 5 ML PO Q8P PRN CONSTIPATION Multiple Vitamin (Multivitamins) 1 EACH TABLET 1 TAB PO DAILY GENERAL HEALTH Oxycodone HCl/Acetaminophen (Percocet 5-325 MG Tablet) 5 MG-325 MG TABLET 1-2 TAB PO Q4-6 PRN PAIN Oxycodone HCl/Acetaminophen (Percocet 5-325 MG Tablet) 5 MG-325 MG TABLET 1-2 TAB PO Q4-6 PRN PAIN Polyethylene Glycol 3350 (Miralax) 17 GRAM/DOSE POWDER 17 GM PO BID CONSTIPATION Current Medications: Current Medications Sig/Samina Start time Last Medication Dose Route Stop Time Status Admin Acetaminophen 650 MG Q6P PRN 06/09 1545 AC PO Acetaminophen 1,000 MG Q6P PRN 06/09 1545 06/10 N/A 1 UNIT IV 2146 Albuterol Sulfate 2 PUF Q4-6 PRN PRN 06/09 1245 AC INH Benzocaine/Menthol 1 PAOLO Q2P PRN 06/09 1545 AC 06/11 PO 0028 Bisacodyl 10 MG DAILY PRN 06/09 1545 AC SC Bisacodyl 10 MG DAILY NEEDED PRN 06/09 1245 SC Calcium/Vitamin D 500 MG BID 06/09 2100 AC 06/11 PO 0847 Ceftazidime 2,000 MG Q8H 06/11 0000 AC 06/11 IV 0800 Ceftazidime 2,000 MG Q8H 06/10 1700 DC 06/10 IV 1721 Cholecalciferol 1,000 IU DAILY 06/10 0900 AC 06/11 PO 0847 Clindamycin 600 MG IQ8 06/09 1600 DC 06/10 Dextrose/Water 50 ML IV 06/11 0829 0829 Cyclobenzaprine HCl 5 MG TID PRN 06/09 1545 06/10 PO 0829 Docusate Sodium 100 MG BID PRN 06/09 1245 AC PO Guaifenesin 10 ML Q4P PRN 06/09 1545 AC PO Hydromorphone HCl 1 MG ONCE ONE 06/10 1445 DC 06/10 IV 06/10 1446 1448 Lactated Ringer's 1,000 ML Q10H 06/09 1245 AC 06/10 IV 2101 Lidocaine 1 PAT DAILY PRN 06/09 1545 AC EXT Lidocaine/Diphenhydr/ 5 ML TID PRN 06/09 1545 AC Alum/Mg/Simeth PO Magnesium Hydroxide 30 ML Q8P PRN 06/09 1545 AC PO Meropenem 1 GM IQ8 06/11 0000 CAN IV Multivitamins 1 TAB DAILY 06/10 0900 AC 06/11 Therapeutic PO 0847 Ondansetron HCl 4 MG Q6P PRN 06/09 1245 AC IV Oxycodone/ 1 TAB Q4P PRN 06/09 1545 AC Acetaminophen PO Oxycodone/ 2 TAB Q6P PRN 06/09 1545 AC 06/11 Acetaminophen PO 0057 Phenol 2 SPRAY Q2P PRN 06/09 1545 AC EXT Polyethylene Glycol 17 GM BID 06/09 2100 AC 06/11 PO 0847 Senna 187 MG AT BEDTIME 06/09 2100 AC 06/10 PO 2106 Tramadol HCl 50 MG Q6 PRN 06/09 1545 AC 06/11 PO 0615 Trimethobenzamide HCl 200 MG Q6P PRN 06/09 1245 AC IM Vancomycin HCl 1,500 MG Q12H 06/10 1700 AC 06/11 Sodium Chloride 250 ML IV 0452 Vancomycin HCl 1,500 MG DAILY 06/10 1415 DC Sodium Chloride 250 ML IV Past History Travel History Traveled to [place] past 21 day No Medical History Blood Transfusion Hx: No Neurological: dizziness EENT: allergies, rhinitis Cardiovascular: NONE Respiratory: asthma Gastrointestinal: NONE Hepatic: NONE Renal: NONE Musculoskeletal: disk herniation, degen joint disease, fibromyalgia, osteoarthritis, spinal stenosis Psychiatric: depression, insomnia Endocrine: obesity Blood Disorders: NONE Cancer(s): NONE CARBURETOR SPECIALIST/Reproductive: endometriosis History of MRSA: No History of VRE: No History of CDIFF: No Isolation History: Standard Surgical History Surgical History: 1 cervical spine surgery left ilaic spine harvesting for bone graft Family History Relations & Conditions If Any: PATERNAL AUNT (BREAST CA). MOTHER (2 CVA'SDIABETES). Age 67. FATHER (ALCOHOL DEPENDENCE). Age 68. GRANDMOTHER (DIABETESCOPD). Age 89. 2 BROTHERS (ALIVE AND WELL). Psychosocial History Where Do You Live? Home Who Do You Live With? 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 Exam & Diagnostic Data Last 24 Hrs of Vital Signs/I&O Vital Signs Date Time Temp Pulse Resp B/P B/P Pulse O2 O2 Flow FiO2 Mean Ox Delivery Rate 06/11 0630 98.7 110 18 118/76 96 Room Air 06/10 2352 99.8 06/10 2302 99.8 06/10 2223 100.9 126 19 128/86 97 06/10 2200 101.8 06/10 2146 100.9 06/10 1500 99.9 118 18 130/80 93 Room Air 06/10 1329 99.2 113 20 130/60 95 Room Air Intake & Output 06/11 1600 06/11 0800 06/11 0000 Intake Total 1250 980 Output Total 600 800 375 Balance -600 450 605 Intake, IV 850 500 Intake, Oral 400 480 Output, Urine 600 800 375 Patient 230 lb Weight Physical Exam Other Physical Findings: General- well nourished, obese middle aged AAF, NAD HEENT- NCAT, anicteric sclera, moist mucous membranes Neck- C-collar in place; post cervical incision malcolm in place, no erythema/ drainage; ant sx incision steristrips in place; no local erythema Cardio- Normal S1/S2 w/o m/g/r; tachycardic Pulm-CTA anteriorly Abd- Soft, NT, proruberant, BS+, L inguinal sx incision, malcolm in place w/o erythema Neuro- Awake and alert, oriented x3 Ext- no c/c Skin: profuse sweating Last 24 Hours of Lab Results: Laboratory Tests 06/11 06/10 06/10 0650 1950 1715 Chemistry Sodium (137 - 145 mmol/L) 133 L 135 L Potassium (3.5 - 5.1 mmol/L) 4.3 4.3 Chloride (98 - 107 mmol/L) 98 96 L Carbon Dioxide (22 - 30 mmol/L) 31 H 30 Anion Gap (5 - 16) 5 8 BUN (7 - 17 mg/dL) 9 9 Creatinine (0.5 - 1.0 mg/dL) 0.6 0.6 Estimated GFR (>60 ml/min) > 60 > 60 BUN/Creatinine Ratio (7 - 25 %) 15.0 15.0 Hematology CBC w Diff NO MAN DIFF REQ WBC (4.8 - 10.8 /CUMM) 11.2 H 14.3 H RBC (4.20 - 5.40 /CUMM) 4.02 L 4.24 Hgb (12.0 - 16.0 G/DL) 11.6 L 12.2 Hct (37 - 47 %) 35.4 L 36.8 L MCV (81.0 - 99.0 FL) 88.1 86.9 MCH (27.0 - 31.0 PG) 29.0 28.8 MCHC (33.0 - 37.0 G/DL) 32.9 L 33.1 RDW (11.5 - 14.5 %) 14.2 13.8 Plt Count (130 - 400 /CUMM) 280 MPV (7.4 - 10.4 FL) 8.5 Gran % (42.2 - 75.2 %) 79.7 H 87.3 H Lymphocytes % (20.5 - 51.1 %) 11.2 L 6.7 L Monocytes % (1.7 - 9.3 %) 8.4 5.7 Eosinophils % (0 - 5 %) 0.6 0.1 Basophils % (0.0 - 2.0 %) 0.1 0.2 Absolute Granulocytes (1.4 - 6.5 /CUMM) 8.9 H 12.5 H Absolute Lymphocytes (1.2 - 3.4 /CUMM) 1.3 1.0 L Absolute Monocytes (0.10 - 0.60 /CUMM) 0.9 H 0.8 H Absolute Eosinophils (0.0 - 0.7 /CUMM) 0.1 0 Absolute Basophils (0.0 - 0.2 /CUMM) 0 0 09/07 09/07 1650 1300 Chemistry Lactic Acid Cancelled Urines Urine Color (YEL,AMB,STR) YEL Urine Clarity (CLEAR) HAZY H Urine pH (5.0 - 8.0) 6.0 Ur Specific [place] (1.001 - 1.035) >= 1.030 Urine Protein (NEG,<30 MG/DL) NEG Urine Ketones (NEG) NEG Urine Nitrite (NEG) NEG Urine Bilirubin (NEG) NEG Urine Urobilinogen (0.1 - 1.0 EU/dl) 0.2 Ur Leukocyte Esterase (NEG) NEG Ur Microscopic SEDIMENT EXAMINED Urine RBC (0 - 5 /HPF) 1-3 Urine WBC (0 - 2 /HPF) 1-3 H Ur Epithelial Cells (NONE,FEW) MOD H Urine Bacteria (NEG/NONE) MANY H Urine Mucus (FEW,NONE) FEW Urine Hemoglobin (NEG) NEG Urine Glucose (N MG/DL) 500 H 06/10 1119 Chemistry Sodium Cancelled Potassium Cancelled Chloride Cancelled Carbon Dioxide Cancelled Anion Gap Cancelled BUN Cancelled Creatinine Cancelled BUN/Creatinine Ratio Cancelled Last 24 Hours of Joey Results: SPEC #: [id number] SHIRAZ: 06/09/18 STATUS: RES RECD: 06/09/[address]: Bakari Romo MD SOURCE: TRUNK/O.R. ENTR: 06/09/[address]: Rehan Fox MD [facility]: HIP LEFT Clifton Rueda MD Unknown ORDERED: TRUNK OR CULT COMMENT: LEFT ANTERIOR ILIAC CREST Procedure Result > GRAM STAIN Final 06/09/18-1008 WHITE BLOOD CELLS FEW OTHER NO ORGANISMS SEEN REPORTED TO : TOMA GITR > TRUNK AREA OR CULTURE Preliminary 06/11/18-1017 Light growth of: PROTEUS MIRABILIS Called to/Readback by YOLANDA by [email or web address] 06/10/18 0923 1. PROTEUS MIRABILIS RX AB ------ -- AMPICILLIN S CEFAZOLIN S AMOXICILLIN/CLAVULINIC ACID S AMPICILLIN/SULBACTAM S CIPROFLOXACIN S GENTAMICIN S TRIMETHOPRIM/SULFAMETHOXAZOLE S SPEC #: [id number] SHIRAZ: 06/10/18165 STATUS: RES RECD: 06/10/[address]: Yrn Skelton MD SOURCE: URINE ROUT ENTR: 06/10/18-[address]: [facility] Bakari Romo MD Unknown ORDERED: URINE CULTURE Procedure Result > URINE CULTURE Preliminary 06/11/18-831 Greater than 100,000 colonies per ml of: GRAM POSITIVE COCCI Identification and susceptibilities to follow Approx. 10,000 colonies per ml of: GRAM NEGATIVE RODS Identification and sensitivities to follow BC 06/10 pnd. Diagnostic Data Recent Imaging Findings: MRI thoracic spine: IMPRESSION: At the mid body T3 level there is focal anterior displacement of the cervical cord and there is a relatively focal contour abnormality along the dorsal surface of the thoracic cord causing a characteristic "scalp sign" on sagittal images. 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 The possibility of a transdural cord herniation associated with a dural defect is felt to be less likely since these are usually located at the intervertebral disc level. Incidental 4 mm calculus within the gallbladder neck. DICTATED BY: Rashmi CURTIS,Huy Zendejas DATE/TIME DICTATED:06/10/181247 HEAD SCREEN WORKER:DESTINEE DATE/TIME TRANSCRIBED:06/10/181247 CXTR 06/10 no ac cardio-pulm findings. Assessment/Plan Assessment/Plan Impression: 48 y/o female who is 4 days S/P Anterior Cervical decompression with fusion C5- C7 with iliac crest bone graft (06/03/18), readmitted on 06/07; s/p S/p ORIF left ASIS traumatic avulsion fracture, underlying severe osteoporosis; hosp course c/ b early sepsis. Patient developed fever, sinus tachycardia; abnl blood work ( leukocytosis); of note OR cx + GNR (Proteus) L inguinal crest area ? small seroma (infected); BC 06/10 pnd. Question UTI vs asymptomatic bacteriuria; UC preliminary GPC and GNR. Allergy to PCN (type 1) Suggestion: 1. Receiving since yesterday broad spectrum iv abx (Ceftzidime/vancomycin); periop treated w/ clindamycin; f/u final cx results. Obtain nasal MRSA surv cx. 2. Trend CBC, BMP. 3. Dose Vancomycin per pharmacy; goal trogh 15-20; obtain vanco trough 30 min before 4 th dose. Consult Acknowledgment - Thank you for your consult request.
--- NOTE | 2018-06-11 14:00 | PN- Orthopedic ---
Subjective Subjective: Patient c/o incisional pain and fibomyalgia pain diffusely. + sorethroat with eating. + sweating. + low grade temp. Hai. po. No N/V. No CP/SOB. Awaiting PT for OOB to chair today. Improved but continued arm radiculopathy. Review of Systems: Remarkable for the above complaints. Objective Vital Signs and I&Os Vital Signs Date Time Temp Pulse Resp B/P B/P Pulse O2 O2 Flow FiO2 Mean Ox Delivery Rate 06/11 630 98.7 110 18 118/76 96 Room Air 06/10 2352 99.8 06/10 2302 99.8 06/10 2223 100.9 126 19 128/86 97 06/10 2200 101.8 06/10 2146 100.9 06/10 1500 99.9 118 18 130/80 93 Room Air Intake & Output 06/11 1600 06/11 0800 06/11 0000 06/10 1600 06/10 0800 06/10 0000 Intake Total 1250 980 170 490 600 Output Total 800 800 375 100 600 Balance -800 450 605 70 -110 600 Intake, IV 850 500 50 250 Intake, Oral 400 480 120 240 600 Number 0 Bowel Movements Output, Urine 800 800 375 100 600 Patient 230 lb Weight Physical Exam General Appearance: well developed/nourished, alert, awake, anxious, moderate distress Neck: Incisions C/D/I. Dressings changed. Respiratory: normal breath sounds, no respiratory distress Cardiovascular: regular rate/rhythm Peripheral Pulses: 2+ tibialis posterior (R), 2+ tibialis posterior (L), 2+ dorsalis pedis (R), 2+ dorsalis pedis (L) Abdomen: soft, non-tender Back: Left iliac crest bone graft incision C/D/I. Dressing changed. Neurologic/Psychiatric: Neurovascularly stable and unchanged with no new or worsening gross motor or sensory loss in mars. UE/LE. Skin: intact, diaphoresis Current Medications: Current Medications Sig/Samina Start time Last Medication Dose Route Stop Time Status Admin Acetaminophen 650 MG Q6P PRN 06/09 1545 AC PO Acetaminophen 1,000 MG Q6P PRN 06/09 1545 AC 06/10 N/A 1 UNIT IV 2146 Albuterol Sulfate 2 PUF Q4-6 PRN PRN 06/09 1245 AC INH Benzocaine/Menthol 1 PAOLO Q2P PRN 06/09 1545 AC 06/11 PO 0028 Bisacodyl 10 MG DAILY PRN 06/09 1545 AC UT Bisacodyl 10 MG DAILY NEEDED PRN 06/09 1245 AC UT Calcium/Vitamin D 500 MG BID 06/09 2100 AC 06/11 PO 0847 Ceftazidime 2,000 MG Q8H 06/11 0000 AC 06/11 IV 0800 Ceftazidime 2,000 MG Q8H 06/10 1700 DC 06/10 IV 1721 Cholecalciferol 1,000 IU DAILY 06/10 900 AC 06/11 PO 0847 Clindamycin 600 MG IQ8 06/09 1600 DC 06/10 Dextrose/Water 50 ML IV 06/11 0829 0829 Cyclobenzaprine HCl 5 MG TID PRN 06/09 1545 AC 06/10 PO 0829 Docusate Sodium 100 MG BID PRN 06/09 1245 AC PO Guaifenesin 10 ML Q4P PRN 06/09 1545 AC PO Hydromorphone HCl 1 MG ONCE ONE 06/10 1445 DC 06/10 IV 06/10 1446 1448 Lactated Ringer's 1,000 ML Q10H 06/09 1245 AC 06/11 IV 1130 Lidocaine 1 PAT DAILY PRN 06/09 1545 AC EXT Lidocaine/Diphenhydr/ 5 ML TID PRN 06/09 1545 AC Alum/Mg/Simeth PO Magnesium Hydroxide 30 ML Q8P PRN 06/09 1545 AC PO Meropenem 1 GM IQ8 06/11 0000 CAN IV Multivitamins 1 TAB DAILY 06/10 09 AC 06/11 Therapeutic PO 0847 Ondansetron HCl 4 MG Q6P PRN 06/09 1245 AC IV Oxycodone/ 1 TAB Q4P PRN 06/09 1545 AC Acetaminophen PO Oxycodone/ 2 TAB Q6P PRN 06/09 1545 AC 06/11 Acetaminophen PO 0057 Phenol 2 SPRAY Q2P PRN 06/09 1545 AC EXT Polyethylene Glycol 17 GM BID 06/09 2100 AC 06/11 PO 0847 Senna 187 MG AT BEDTIME 06/09 2100 AC 06/10 PO 2106 Tramadol HCl 50 MG Q6 PRN 06/09 1545 AC 06/11 PO 0615 Trimethobenzamide HCl 200 MG Q6P PRN 06/09 1245 AC IM Vancomycin HCl 1,500 MG Q12H 06/10 1700 AC 06/11 Sodium Chloride 250 ML IV 0452 Vancomycin HCl 1,500 MG DAILY 06/10 1415 DC Sodium Chloride 250 ML IV Results Last 48 Hours of Labs: Laboratory Tests 06/11 06/10 06/10 0650 1950 1715 Chemistry Sodium (137 - 145 mmol/L) 133 L 135 L Potassium (3.5 - 5.1 mmol/L) 4.3 4.3 Chloride (98 - 107 mmol/L) 98 96 L Carbon Dioxide (22 - 30 mmol/L) 31 H 30 Anion Gap (5 - 16) 5 8 BUN (7 - 17 mg/dL) 9 9 Creatinine (0.5 - 1.0 mg/dL) 0.6 0.6 Estimated GFR (>60 ml/min) > 60 > 60 BUN/Creatinine Ratio (7 - 25 %) 15.0 15.0 TSH (0.270 - 4.200 uIU/mL) 1.070 Thyroxine (T4) (4.5 - 10.9 ug/dL) 7.8 Hematology CBC w Diff NO MAN DIFF REQ WBC (4.8 - 10.8 /CUMM) 11.2 H 14.3 H RBC (4.20 - 5.40 /CUMM) 4.02 L 4.24 Hgb (12.0 - 16.0 G/DL) 11.6 L 12.2 Hct (37 - 47 %) 35.4 L 36.8 L MCV (81.0 - 99.0 FL) 88.1 86.9 MCH (27.0 - 31.0 PG) 29.0 28.8 MCHC (33.0 - 37.0 G/DL) 32.9 L 33.1 RDW (11.5 - 14.5 %) 14.2 13.8 Plt Count (130 - 400 /CUMM) 280 MPV (7.4 - 10.4 FL) 8.5 Gran % (42.2 - 75.2 %) 79.7 H 87.3 H Lymphocytes % (20.5 - 51.1 %) 11.2 L 6.7 L Monocytes % (1.7 - 9.3 %) 8.4 5.7 Eosinophils % (0 - 5 %) 0.6 0.1 Basophils % (0.0 - 2.0 %) 0.1 0.2 Absolute Granulocytes (1.4 - 6.5 /CUMM) 8.9 H 12.5 H Absolute Lymphocytes (1.2 - 3.4 /CUMM) 1.3 1.0 L Absolute Monocytes (0.10 - 0.60 /CUMM) 0.9 H 0.8 H Absolute Eosinophils (0.0 - 0.7 /CUMM) 0.1 0 Absolute Basophils (0.0 - 0.2 /CUMM) 0 0 06/10 06/10 1650 1300 Chemistry Lactic Acid Cancelled Urines Urine Color (YEL,AMB,STR) YEL Urine Clarity (CLEAR) HAZY H Urine pH (5.0 - 8.0) 6.0 Ur Specific [place] (1.001 - 1.035) >= 1.030 Urine Protein (NEG,<30 MG/DL) NEG Urine Ketones (NEG) NEG Urine Nitrite (NEG) NEG Urine Bilirubin (NEG) NEG Urine Urobilinogen (0.1 - 1.0 EU/dl) 0.2 Ur Leukocyte Esterase (NEG) NEG Ur Microscopic SEDIMENT EXAMINED Urine RBC (0 - 5 /HPF) 1-3 Urine WBC (0 - 2 /HPF) 1-3 H Ur Epithelial Cells (NONE,FEW) MOD H Urine Bacteria (NEG/NONE) MANY H Urine Mucus (FEW,NONE) FEW Urine Hemoglobin (NEG) NEG Urine Glucose (N MG/DL) 500 H 06/10 1119 Chemistry Sodium Cancelled Potassium Cancelled Chloride Cancelled Carbon Dioxide Cancelled Anion Gap Cancelled BUN Cancelled Creatinine Cancelled BUN/Creatinine Ratio Cancelled Assessment/Plan Assessment/Plan Assessment: 1. s/p ACDF/PCDF with ORIF of traumatic avulsion of left ASIS 2. Severe osteoporosis 3. UTI 4. Suspected Wound Infection 5. Fibromyalgia Plan: Continue antibiotics Continue pain managment Bowel regimen Ambulate to chair with PT daily Consider use of Neurontin for neuritis pain and fibromyalgia Follow labs daily. Ice to incisions prn pain Problem List: 1. Fibromyalgia 2. Asthma 3. Endometriosis 4. Allergic rhinitis 5. Depression 6. Insomnia 7. Thoracic disc herniation Core Measures Venous Thromboembolism VTE Risk Factors Age>40 No Mechanical VTE Prophylaxis d/t N/A MechProphylax Ordered No VTE Pharm Prophylaxis d/t NA PharmProphylax ordered Attending MD Review Statement Attending Statement Attending MD Statement: discuss w/resident/PA/SLICER MACHINE OPERATOR, agreed w/resident/PA/SLICER MACHINE OPERATOR
[2018-06-11 15:14] VITALS: BP 138/70
[2018-06-11 22:00] VITALS: BP 140/62
[2018-06-12 06:57] VITALS: BP 122/74
[2018-06-12 08:08] LABS: ABSOLUTE BASOPHIL COUNT 0 /CUMM (0.0-0.2); ABSOLUTE EOSINOPHIL COUNT 0.1 /CUMM (0.0-0.7); ABSOLUTE GRANULOCYTE CT 8.1 /CUMM (1.4-6.5); ABSOLUTE LYMPH COUNT 1.3 /CUMM (1.2-3.4); ABSOLUTE MONOCYTE COUNT 0.7 /CUMM (0.10-0.60); BASOPHIL % 0.4 % (0.0-2.0); EOSINOPHIL % 1.3 % (0-5); GRANULOCYTE % 78.6 % (42.2-75.2); HEMATOCRIT 34.8 % (37-47); MEAN CORPUSCULAR HGB 28.9 PG (27.0-31.0); MEAN CORPUSCULAR VOLUME 87.6 FL (81.0-99.0); MEAN PLATELET VOLUME 8.6 FL (7.4-10.4); PLATELET COUNT 271 /CUMM (130-400); RED BLOOD CELL CT 3.97 /CUMM (4.20-5.40); WHITE BLOOD CELL COUNT 10.3 /CUMM (4.8-10.8)
--- NOTE | 2018-06-12 10:03 | PN- Housestaff ---
[place] 06/12/18 1003: Subjective Follow-up For: Sepsis with Gram negative rods from OR culture Sinus Tachycardia, likely due to sepsis Intractible Left flank/thigh pain with numbness after procedure S/P Anterior Cervical decompression with fusion C5-C7 with iliac crest bone graft (06/03/18) Tele-Events Since Last Visit: Patient remained in sinus rhythm with heart rate between 25016 Subjective: No overnight events. Patient remained afebrile in the past and examined this morning. Patient denied chest pain, palpitation, nausea, vomiting and abdominal pain. Patient has cervical collar after the surgery. She is complaining of left thigh numbness and pain. She also reported having some tingling sensation on both hands last night. Review of Systems Constitutional: Denies: chills, fever. EENTM: Reports: see HPI. Cardiovascular: Denies: chest pain, palpitations. Respiratory: Denies: short of breath, sputum production. Gastrointestinal: Denies: abdominal pain, diarrhea, nausea, vomiting. Genitourinary: Reports: see HPI. Musculoskeletal: Reports: see HPI. Neurological/Psychological: Reports: see HPI. Objective Last 24 Hrs of Vital Signs/I&O Vital Signs Date Time Temp Pulse Resp B/P B/P Pulse O2 O2 Flow FiO2 Mean Ox Delivery Rate 06/12 0657 99.0 104 18 122/74 97 Room Air 06/11 2200 99.7 122 18 140/62 97 Room Air 06/11 2153 Room Air 06/11 1514 99.1 118 18 138/70 96 Room Air Intake & Output 06/12 1600 06/12 0800 06/12 0000 Intake Total 400 400 Output Total Balance 400 400 Intake, IV 400 Intake, Oral 400 Patient 223 lb Weight Weight Bed scale Measurement Method Physical Exam General Appearance: Alert, Oriented X3, Cooperative Skin Temp/Moisture Exam: Warm/Dry Sepsis Skin Exam (color): Normal for Ethnicity HEENT: Atraumatic, EOMI Neck: Supple Cardiovascular: Normal S1, Normal S2 Lungs: Clear to Auscultation Abdomen: Soft, No Tenderness Neurological: Normal Speech, Normal Tone Extremities: No Edema Assessment/Plan Assessment: 48 year old woman with multiple medical problems significant for extensive spinal orthopedic disease brought in by ambulance for left flank / left thigh pain after walking when she heard a "pop" resulting in inability to ambulate and left thigh numbness. She is s/p anterior cervical discectomy C5-7 with instrumentation and left illiac crest bone graft on 06/[address] Romo. Post operatively patient was mildly confused most likely due to anesthesia and found to be tachycardic. EKG demonstrated sinus tachycardia to the 100s and TMAX 101.2. Patient met sepsis criteria through tachycardia and temperature with probable source being the gram negative infection. Patient was transfered to telemetry for further evaluation of her sinus tachycardia. Seeing the patient on telemetry floor for following problems. Sepsis with Gram negative rods from OR culture: -Continue IV fluids, Ringer lactate at the rate of 100 mL/h. -Continue vancomycin, day 3 -Ceftaz was discontinued anb ceftriaxone 2gm was started. -Monitoring her WBC count -Her blood cultures are positive with gram-positive cocci. -Urine cultures are positive with gram-positive cocci and gram-negative rods. -Follow-up ID recommendations Sinus tachycardia: -Possibly due to sepsis -If she remained tachycardic continuously we will consider cardiac consult and echocardiogram. -Her TSH and T4 are within normal limits. S/P Posterior cervical / thoracic laminectomies C5-T2 with fusion: -On 06/09/2018 -Complaining of intractible Left flank/thigh pain with numbness after procedure -Continue pain medications. -Follow-up surgery recommendations. -Continue physical therapy History of spinal stenosis: -Continue pain medications and physical therapy History of fibromyalgia: -Continue pain medications and physical therapy DVT prophylaxis: Mechanical only CODE STATUS; Full code Problem List: 1. Lower extremity pain, left 2. Sinus tachycardia Pain Ratin Pain Location: left leg Pain Goal: Pain 4 or less Pain Plan: pain pathway Tomorrow's Labs & Rationales: cbc/bep/esr/crp Olga Lidia Wilcox MD 06/12/18 1303: Attending MD Review Statement Attending Statement Attending MD Statement: examined this patient, discuss w/resident/PA/ARABIC LINGUIST, agreed w/resident/PA/ARABIC LINGUIST, reviewed EMR data (avail), discussed with nursing, discussed with case mgmt, amended to note Attending Assessment/Plan: Patient seen and examined, feels ok. pain is slightly better. Vital Signs Date Time Temp Pulse Resp B/P B/P Pulse O2 O2 Flow FiO2 Mean Ox Delivery Rate 06/12 0657 99.0 104 18 122/74 97 Room Air 06/11 2200 99.7 122 18 140/62 97 Room Air 06/11 2153 Room Air 06/11 1514 99.1 118 18 138/70 96 Room Air On exam; aox3, nad. cv; s1, s2, rrr, tachy. resp; clear abd; soft, nt, bs+ ext; no edema neck collar and dressing on left inguinal area. Laboratory Tests 06/12 06/11 0614 1600 Chemistry Sodium (137 - 145 mmol/L) 135 L Potassium (3.5 - 5.1 mmol/L) 4.2 Chloride (98 - 107 mmol/L) 97 L Carbon Dioxide (22 - 30 mmol/L) 32 H Anion Gap (5 - 16) 5 BUN (7 - 17 mg/dL) 8 Creatinine (0.5 - 1.0 mg/dL) 0.6 Estimated GFR (>60 ml/min) > 60 BUN/Creatinine Ratio (7 - 25 %) 13.3 Hematology CBC w Diff NO MAN DIFF REQ WBC (4.8 - 10.8 /CUMM) 10.3 RBC (4.20 - 5.40 /CUMM) 3.97 L Hgb (12.0 - 16.0 G/DL) 11.5 L Hct (37 - 47 %) 34.8 L MCV (81.0 - 99.0 FL) 87.6 MCH (27.0 - 31.0 PG) 28.9 MCHC (33.0 - 37.0 G/DL) 33.0 RDW (11.5 - 14.5 %) 14.0 Plt Count (130 - 400 /CUMM) 271 MPV (7.4 - 10.4 FL) 8.6 Gran % (42.2 - 75.2 %) 78.6 H Lymphocytes % (20.5 - 51.1 %) 12.4 L Monocytes % (1.7 - 9.3 %) 7.3 Eosinophils % (0 - 5 %) 1.3 Basophils % (0.0 - 2.0 %) 0.4 Absolute Granulocytes (1.4 - 6.5 /CUMM) 8.1 H Absolute Lymphocytes (1.2 - 3.4 /CUMM) 1.3 Absolute Monocytes (0.10 - 0.60 /CUMM) 0.7 H Absolute Eosinophils (0.0 - 0.7 /CUMM) 0.1 Absolute Basophils (0.0 - 0.2 /CUMM) 0 Toxicology Vancomycin Trough (10.0 - 20.0 ug/mL) < 5.0 L Cancelled A/P; 48 y/o F with PMH of asthma, fibromyalgia, OA, depression who presented to the ED for evaluation of sudden onset left lower extremity pain. She is s/p anterior cervical discectomy C5-7 with instrumentation and left illiac crest bone graft on 06/[address] Romo. patient admitted on 06/06 with left flank and thigh pain. S/P Posterior cervical and thoracic laminectomies C5 6 C6 7 T1 2. Instrumented fusion C567 T1 to. Lateral fusion with autologous iliac crest morselized bone graft C5 6 7 T1 tube. Placement of Pineda tongs removal of Pineda tongs use of fluoroscopy. Anterior iliac crest morselized bone harvest. ORIF of fractured anterior iliac spine left side with Dr. Bakari Romo on 06/09/18. Operating room culture growing Proteus. Patient also has a UTI with enterococcus as well as gram-negative rods. Abx per ID. Fever spikes are down. Pain meds. Follow up on cx. Sinus tachycardia is also slightly better. Continue the rest of the management. Mechanical DVt px.
--- NOTE | 2018-06-12 12:07 | PN- Infect Dx ---
Subjective Subjective: Patient remains afebrile; she denies nausea, vomiting and abdominal pain. She is in tears; complaining pain "every where", earlier today she reported left thigh numbness. Review of Systems Comments: 12 points reviewed as noted, otherwise negative. Objective Last 24 Hrs of Vital Signs/I&O Vital Signs Date Time Temp Pulse Resp B/P B/P Pulse O2 O2 Flow FiO2 Mean Ox Delivery Rate 06/12 0657 99.0 104 18 122/74 97 Room Air 06/11 2200 99.7 122 18 140/62 97 Room Air 06/11 2153 Room Air 06/11 1514 99.1 118 18 138/70 96 Room Air Intake & Output 06/12 1600 06/12 0800 06/12 0000 Intake Total 400 400 Output Total Balance 400 400 Intake, IV 400 Intake, Oral 400 Patient 223 lb Weight Weight Bed scale Measurement Method Physical Exam Other Physical Findings: General- well nourished, obese middle aged AAF, NAD HEENT- NCAT, anicteric sclera, moist mucous membranes Neck- C-collar in place; post cervical incision malcolm in place, no erythema/ drainage; ant sx incision steristrips in place; no local erythema Cardio- Normal S1/S2 no m/g/r auscultated Pulm-CTA anteriorly Abd- Soft, NT, proruberant, BS+, L inguinal sx incision, malcolm in place w/o erythema Neuro- Awake and alert, oriented x3 Ext- no c/c Skin: warm/dry Results Last 24 Hours of Lab Results: Laboratory Tests 06/12 06/11 0614 1600 Chemistry Sodium (137 - 145 mmol/L) 135 L Potassium (3.5 - 5.1 mmol/L) 4.2 Chloride (98 - 107 mmol/L) 97 L Carbon Dioxide (22 - 30 mmol/L) 32 H Anion Gap (5 - 16) 5 BUN (7 - 17 mg/dL) 8 Creatinine (0.5 - 1.0 mg/dL) 0.6 Estimated GFR (>60 ml/min) > 60 BUN/Creatinine Ratio (7 - 25 %) 13.3 Hematology CBC w Diff NO MAN DIFF REQ WBC (4.8 - 10.8 /CUMM) 10.3 RBC (4.20 - 5.40 /CUMM) 3.97 L Hgb (12.0 - 16.0 G/DL) 11.5 L Hct (37 - 47 %) 34.8 L MCV (81.0 - 99.0 FL) 87.6 MCH (27.0 - 31.0 PG) 28.9 MCHC (33.0 - 37.0 G/DL) 33.0 RDW (11.5 - 14.5 %) 14.0 Plt Count (130 - 400 /CUMM) 271 MPV (7.4 - 10.4 FL) 8.6 Gran % (42.2 - 75.2 %) 78.6 H Lymphocytes % (20.5 - 51.1 %) 12.4 L Monocytes % (1.7 - 9.3 %) 7.3 Eosinophils % (0 - 5 %) 1.3 Basophils % (0.0 - 2.0 %) 0.4 Absolute Granulocytes (1.4 - 6.5 /CUMM) 8.1 H Absolute Lymphocytes (1.2 - 3.4 /CUMM) 1.3 Absolute Monocytes (0.10 - 0.60 /CUMM) 0.7 H Absolute Eosinophils (0.0 - 0.7 /CUMM) 0.1 Absolute Basophils (0.0 - 0.2 /CUMM) 0 Toxicology Vancomycin Trough (10.0 - 20.0 ug/mL) < 5.0 L Cancelled Last 24 Hours of Joey Results: SPEC #: [id number] SHIRAZ: 06/10/18 STATUS: RES RECD: 06/10/[address]: Ammon CURTIS,[facility] SOURCE: BLOOD ENTR: 06/10/[address]: Ruddy CURTIS, Rehan SPDESC: FIRST LINE Demetrius CURTIS,Bakari Unknown ORDERED: BLOOD CULTURE Procedure Result > BLOOD CULTURE REPORT Preliminary 06/12/18 GRAM STAIN SUGGESTIVE OF: GRAM POSITIVE COCCI IN CLUSTERS Called to/Readback by SERGEI/DR RUDDY FRANK by LAB.BELINDACY 06/12/18 0658/ 0240/0250 SPEC #: [id number] SHIRAZ: 06/10/18 STATUS: COMP RECD: 06/10/[address]: Costa CURTIS,Yrn SOURCE: URINE ROUT ENTR: 06/10/18-[address]: Ruddy CURTIS, Rehan [facility]: Bakari López MD Unknown ORDERED: URINE CULTURE Procedure Result > URINE CULTURE Final 06/12/18-1119 Greater than 100,000 colonies per ml of: ENTEROCOCCUS Approx. 10,000 colonies per ml of: PROTEUS MIRABILIS Enteroc P.mirabili RX AB RX AB ------ -- ------ -- AMPICILLIN S S CEFAZOLIN S AMOX/CLAV AUGM S AMP/SULB-UNASYN S CIPROFLOXACIN S GENTAMICIN S NITROFURANTOIN S R TRIMETH/SULFA S VANCOMYCIN S 1. ENTEROCOCCUS RX AB ------ -- AMPICILLIN S NITROFURANTOIN S VANCOMYCIN S 2. PROTEUS MIRABILIS RX AB ------ -- AMPICILLIN S CEFAZOLIN S AMOXICILLIN/CLAVULINIC ACID S AMPICILLIN/SULBACTAM S CIPROFLOXACIN S GENTAMICIN S NITROFURANTOIN R Patient : LORE MURCIA Acct: [id number] DR: Bakari Romo MD Birthdate: [birth year] Age/Sex: 48/F Unit: [id number] Loc: [facility] 181- [phone] Status : ADM IN SPEC #: [id number] SHIRAZ: 06/09/18 STATUS: COMP RECD: 06/09/[address]: Bakari Romo MD SOURCE: TRUNK/O.R. ENTR: 06/09/[address]: Ruddy CURTIS, Rehan [facility]: HIP LEFT Clifton Rueda MD Unknown ORDERED: TRUNK OR CULT COMMENT: LEFT ANTERIOR ILIAC CREST Procedure Result > GRAM STAIN Final 06/09/18-1008 WHITE BLOOD CELLS FEW OTHER NO ORGANISMS SEEN REPORTED TO : TOMA GITR > TRUNK AREA OR CULTURE Final 06/12/18-1135 Light growth of: PROTEUS MIRABILIS Called to/Readback by YOLANDA by LAB.GEOK 06/10/18 09 1. PROTEUS MIRABILIS RX AB ------ -- AMPICILLIN S CEFAZOLIN S AMOXICILLIN/CLAVULINIC ACID S AMPICILLIN/SULBACTAM S CIPROFLOXACIN S GENTAMICIN S TRIMETHOPRIM/SULFAMETHOXAZOLE S Recent Imaging Studies: MRI 06/10: IMPRESSION: At the mid body T3 level there is focal anterior displacement of the cervical cord and there is a relatively focal contour abnormality along the dorsal surface of the thoracic cord causing a characteristic "scalp sign" on sagittal images. 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 The possibility of a transdural cord herniation associated with a dural defect is felt to be less likely since these are usually located at the intervertebral disc level. Incidental 4 mm calculus within the gallbladder neck. DICTATED BY: Rashmi CURTIS,Huy Zendejas DATE/TIME DICTATED:06/10/181247 COVER STRIPPER:DESTINEE DATE/TIME TRANSCRIBED:06/10/181247 Assessment/Plan ID Impression: 48 y/o female who is 4 days S/P Anterior Cervical decompression with fusion C5- C7 with iliac crest bone graft (06/03/18), readmitted on 06/07; s/p S/p ORIF left ASIS traumatic avulsion fracture, underlying severe osteoporosis; hosp course c/ b early sepsis. Patient developed on 06/10 fever, sinus tachycardia; abnl blood work (leukocytosis); of note OR cx + Proteus mirabilis; L inguinal crest area ? small seroma (infected); clinically improved; persistent lower neck pain.. Question UTI vs asymptomatic bacteriuria; UC + Proteus/Enterococcus (sensitivity as noted) Bacteremia (GPC in clusters ? S. aureus vs SCN; the later likely would be a contaminant) Allergy to PCN (type 1) Suggestion: 1. D/c Ceftzidime; deescalate abx to Ceftriaxone 2 gm daily instead. 2. Repeat BC x2 in am 06/13; meanwhile cont iv vancomycin; redose per pharmacy; trough subtherapeutic; goal trough 15-20. 2. Trend CBC, BMP. 3. Obtain ESR/CRP in am /10.
[2018-06-12 14:09] VITALS: BP 136/64
[2018-06-12 22:10] VITALS: BP 132/76
[2018-06-13 06:59] VITALS: BP 162/74
--- NOTE | 2018-06-13 07:16 | PN- Housestaff ---
[place] 06/13/18 0715: Subjective Follow-up For: Sepsis with Gram negative rods from OR culture Sinus Tachycardia, likely due to sepsis Intractible Left flank/thigh pain with numbness after procedure S/P Anterior Cervical decompression with fusion C5-C7 with iliac crest bone graft (06/03/18) Tele-Events Since Last Visit: No acute events overnight. Yesterday, tachycardia with highest HR of 126. Subjective: Afebrile overnight. Patient is seen and examined in bed this morning. Patient reports a constant pain in her left hip that has been persistent since her surgery. Patient also reports left arm tingling sensation that travels towards her left hand. Patient denies any chest pain, palpitations, and shortness of breath. Patiet does report she has been feeling constipated and has only been able to pass gas. Patient states she worked with PT yesterday and sat in the chair for the first time. Patient also reports feelings of depression and would like to speak more openly with a provider regarding those issues. Review of Systems Constitutional: Reports: see HPI. Objective Last 24 Hrs of Vital Signs/I&O Vital Signs Date Time Temp Pulse Resp B/P B/P Pulse O2 O2 Flow FiO2 Mean Ox Delivery Rate 06/13 0659 99.2 118 22 162/74 96 Room Air 06/12 2210 99.0 123 26 132/76 94 Room Air 06/12 1409 99.1 112 18 136/64 94 Room Air Intake & Output 06/13 1600 06/13 0800 09 0000 Intake Total 800 1180 Output Total 525 825 Balance 275 355 Intake, IV 600 820 Intake, Oral 200 360 Output, Urine 525 825 Physical Exam General Appearance: Alert, Oriented X3, Cooperative Skin: No Rashes HEENT: Atraumatic Neck: cervical neck collar Cardiovascular: Normal S1, Normal S2, tachycardic Lungs: Clear to Auscultation Abdomen: Soft, mild tenderness in lower abdomen Neurological: Normal Speech Extremities: No Edema, left hip pain with b/l distal sensation intact Assessment/Plan Assessment: 48 year old woman with multiple medical problems significant for extensive spinal orthopedic disease brought in by ambulance for left flank / left thigh pain after walking when she heard a "pop" resulting in inability to ambulate and left thigh numbness. She is s/p anterior cervical discectomy C5-7 with instrumentation and left illiac crest bone graft on 06/[address] Romo. Post operatively patient was mildly confused most likely due to anesthesia and found to be tachycardic. EKG demonstrated sinus tachycardia to the 100s and TMAX 101.2. Patient met sepsis criteria through tachycardia and temperature with probable source being the gram negative infection. Patient was transfered to telemetry for further evaluation of her sinus tachycardia. Seeing the patient on telemetry floor for following problems. Sepsis with Gram negative rods from OR culture: -IV fluids with Ringer lactate at the rate of 100 mL/h; dc'd 06/13 -Vancomycin 1.5 mg BID, dc'd -Ceftaz was discontinued and ceftriaxone 2gm was started 06/13 -Monitoring her WBC count -Her blood cultures are positive with gram-positive cocci. -Urine cultures are positive with gram-positive cocci and gram-negative rods. -Follow-up ID recommendations; continue Ceftriaxone 2 gm qd; once ready for discharge oral Cipro 750 mg po bid for total 2 weeks; monitor ESR weekly and if it remains elevated further imaging to evaluate for osteomyelitis (bone scan/MRI cervical spine and of the L illiac crest) Sinus tachycardia: -Possibly due to sepsis -If she remained tachycardic continuously we will consider cardiac consult and echocardiogram. -Her TSH and T4 are within normal limits. -Patient has been Sinus tachycardia throughout the weekend, recently with a fever of 101.1; in the setting of recent surgery a suspicion for DVT/PE was considered; discussed with attending and initially ordered CT PE protocol but understood patient could not proceed with imaging due to having a triple lumen catheter and subsequently ordered a V/Q scan; patient went down for the V/Q scan but could not follow commands and refused the procedure; patient has a D-Dimer of 2663; patient receiving Enoxaparin 40 mg qd dvt prophylaxis currently -ordered an ABG for follow-up S/P Posterior cervical / thoracic laminectomies C5-T2 with fusion: -On 06/09/2018 -Complaining of intractible Left flank/thigh pain with numbness after procedure -Continue pain medications. -Follow-up surgery recommendations. -Continue physical therapy History of spinal stenosis: -Continue pain medications and physical therapy History of fibromyalgia: -Continue pain medications and physical therapy -Psych consulted; assess pt. DVT prophylaxis: Mechanical and Enoxaparin 30 mg qd CODE STATUS; Full code Problem List: 1. Lower extremity pain, left 2. Sinus tachycardia Pain Ratin Pain Location: left hip cervical spine Pain Goal: Pain 7 or less Pain Plan: prn meds Tomorrow's Labs & Rationales: routine Shonna Montes 06/13/18 1113: Attending MD Review Statement Attending Statement Attending MD Statement: examined this patient, discuss w/resident/PA/MACHINE ROOM ENGINEER, agreed w/resident/PA/MACHINE ROOM ENGINEER, reviewed EMR data (avail), discussed with nursing, discussed with case mgmt Attending Assessment/Plan: 48 y/o female from [facility] who is s/p ACDF C5-7 with Instrumentation and left ICBG on 06/03/18, was discharged on 06/04/18 in stable condition; pt was planned for staged posterior cervical decompression/fusion planned for 06/09/18 due to severe osteoporosis discovered during her anterior procedure. Pt was readmitted on 06/06 with c/c of left hip pain. Pt on morning of admission says she was laying in bed when she felt something pop and had a sudden onset of pain in her left lateral hip. - Pelvic imaging showed- Postsurgical changes and left anterior superior iliac spine avulsion with inferior displacement. 06/09/18- pt underwent- "Posterior cervical and thoracic laminectomies C5 6 C6 7 T1 2. Instrumented fusion C567 T1 to. Lateral fusion with autologous iliac crest morselized bone graft C5 6 7 T1 tube. Placement of Pineda tongs removal of Pineda tongs use of fluoroscopy. Anterior iliac crest morselized bone harvest. ORIF of fractured anterior iliac spine left side." Sepsis with Proteus Mirabilis from OR culture and Urine cultures growing Enterococcus and Proteus -On vancomycin and ceftriaxone. -Follow-up ID recommendations. Sinus tachycardia: likely sec to sepsis. will get echo if persisits. S/P cervical spine surgery and ORIF left hip management as per orhto. Continue physical therapy History of fibromyalgia: Continue pain medications and physical therapy Psych consulted; started on cymbalta[facility]. added fenatnyl for pain control and will consult pain management.
[2018-06-13 08:14] LABS: ABSOLUTE BASOPHIL COUNT 0 /CUMM (0.0-0.2); ABSOLUTE EOSINOPHIL COUNT 0.2 /CUMM (0.0-0.7); ABSOLUTE GRANULOCYTE CT 6.9 /CUMM (1.4-6.5); ABSOLUTE LYMPH COUNT 1.1 /CUMM (1.2-3.4); ABSOLUTE MONOCYTE COUNT 0.7 /CUMM (0.10-0.60); BASOPHIL % 0.3 % (0.0-2.0); EOSINOPHIL % 1.8 % (0-5); GRANULOCYTE % 77.4 % (42.2-75.2); HEMATOCRIT 34.9 % (37-47); MEAN CORPUSCULAR HGB 29.2 PG (27.0-31.0); MEAN CORPUSCULAR HGB CONC 33.6 G/DL (33.0-37.0); MEAN CORPUSCULAR VOLUME 86.9 FL (81.0-99.0); MEAN PLATELET VOLUME 8.4 FL (7.4-10.4); PLATELET COUNT 314 /CUMM (130-400); RBC DISTRIBUTION WIDTH 13.7 % (11.5-14.5); RED BLOOD CELL CT 4.02 /CUMM (4.20-5.40); WHITE BLOOD CELL COUNT 8.9 /CUMM (4.8-10.8)
--- NOTE | 2018-06-13 08:42 | PN- Student ---
Subjective Subjective: The patient is seen and examined this morning. She was afebrile overnight but was persistently tachycardic. She reports that pain is about 5-7/10 in severity in both her left hip and neck. Pain is worse with movement and goes up to 15/10 when she changes positions. She is now reporting that she feels depressed and as if she has lost her "fight" due to her persistent pain. She would like to be seen by a psychiatrist. She endorses a past history of suicidal ideation, remote history of cutting (several years ago) and several suicide attempts including overdose on pills and attempted strangulation. She has never been hospitalized for suicial ideation or suicide attempts in the past. She states that her GP attempted to prescribe her an unknown antidepressant in the past but this medication made her feel sick and she did not continue to take it. She denies any auditory/visual hallucinations or suicidal ideation currently. She also states that she is not on medication for fibromyalgia currently because Lyrica made her feel suicidal. Additionally, she reports that her right ear throbs when she swallows. She admits to feeling like she needs to cough and has produced some white foamy sputum. Admits to chest pain in the middle of her chest with deep inspiration. She denies fevers, or chills overnight. She has not yet had a bowel movement and she is tolerating her diet without nausea or vomiting. Objective Objective: Vitals: temp - 99.2F, pulse - 118, respiratory rate - 22, blood pressure - 162/ 74, oxygen saturation - 96% on RA General: uncomfortable appearing obese female lying in bed in no acute distress, patient is sweaty and appears not to have bathed in several days HEENT: mucous membranes dry, soft cervical collar in place, pupils 2 mm bilaterally and equally reactive to light and accomodation, EOMI, minimal mastoid tenderness to palpation, no cervical lymphadenopathy noted CV: tachycardia with rate of 108, normal S1 and S2, no murmurs, rubs, or gallops appreciated Pulmonary: patient unable to sit up and forward to allow for auscultation of posterior lung taylor; however, clear lung sounds were auscultated with the patient in the left lateral decubitus position and there was no evidence of wheezing, rales, or rhonchi, anterior lung exam revealed clear breath sounds bilaterally Abdomen: obese, mild diffuse tenderness to palpation, right femoral line in place due to poor peripheral access, line appears intact without evidence of infection Extremities: strength right UE 4/5, strength left UE 3/5, strength right LE 5/5, strength left LE 3/5 Results Results: Laboratory Tests 06/13/18 0700: Anion Gap 8, Estimated GFR > 60, BUN/Creatinine Ratio 15.0, Magnesium 1.9, C- Reactive Prot, Quant Pending, C-React Prot High Sens Pending, CBC w Diff NO MAN DIFF REQ, RBC 4.02 L, MCV 86.9, MCH 29.2, MCHC 33.6, RDW 13.7, MPV 8.4, Gran % 77.4 H, Lymphocytes % 12.7 L, Monocytes % 7.8, Eosinophils % 1.8, Basophils % 0.3, Absolute Granulocytes 6.9 H, Absolute Lymphocytes 1.1 L, Absolute Monocytes 0.7 H, Absolute Eosinophils 0.2, Absolute Basophils 0, ESR Westergren Pending, Random Vancomycin Pending 06/12/18 0614: Anion Gap 5, Estimated GFR > 60, BUN/Creatinine Ratio 13.3, CBC w Diff NO MAN DIFF REQ, RBC 3.97 L, MCV 87.6, MCH 28.9, MCHC 33.0, RDW 14.0, MPV 8.6, Gran % 78.6 H, Lymphocytes % 12.4 L, Monocytes % 7.3, Eosinophils % 1.3, Basophils % 0.4, Absolute Granulocytes 8.1 H, Absolute Lymphocytes 1.3, Absolute Monocytes 0.7 H, Absolute Eosinophils 0.1, Absolute Basophils 0, Vancomycin Trough < 5.0 L 06/11/18 1600: Vancomycin Trough Cancelled 06/11/18 0650: Anion Gap 5, Estimated GFR > 60, BUN/Creatinine Ratio 15.0, TSH 1.070, Thyroxine (T4) 7.8, CBC w Diff NO MAN DIFF REQ, RBC 4.02 L, MCV 88.1, MCH 29.0, MCHC 32.9 L, RDW 14.2, MPV 8.5, Gran % 79.7 H, Lymphocytes % 11.2 L, Monocytes % 8.4, Eosinophils % 0.6, Basophils % 0.1, Absolute Granulocytes 8.9 H, Absolute Lymphocytes 1.3, Absolute Monocytes 0.9 H, Absolute Eosinophils 0.1, Absolute Basophils 0 06/10/18 1950: RBC 4.24, MCV 86.9, MCH 28.8, MCHC 33.1, RDW 13.8, Gran % 87.3 H, Lymphocytes % 6.7 L, Monocytes % 5.7, Eosinophils % 0.1, Basophils % 0.2, Absolute Granulocytes 12.5 H, Absolute Lymphocytes 1.0 L, Absolute Monocytes 0.8 H, Absolute Eosinophils 0, Absolute Basophils 0 06/10/18 1715: Anion Gap 8, Estimated GFR > 60, BUN/Creatinine Ratio 15.0 06/10/18 1650: Urine Color YEL, Urine Clarity HAZY H, Urine pH 6.0, Ur Specific [place] >= 1.030, Urine Protein NEG, Urine Ketones NEG, Urine Nitrite NEG, Urine Bilirubin NEG, Urine Urobilinogen 0.2, Ur Leukocyte Esterase NEG, Ur Microscopic SEDIMENT EXAMINED, Urine RBC 1-3, Urine WBC 1-3 H, Ur Epithelial Cells MOD H, Urine Bacteria MANY H, Urine Mucus FEW, Urine Hemoglobin NEG, Urine Glucose 500 H 06/10/18 1300: Lactic Acid Cancelled 06/10/18 1119: Sodium Cancelled, Potassium Cancelled, Chloride Cancelled, Carbon Dioxide Cancelled, Anion Gap Cancelled, BUN Cancelled, Creatinine Cancelled, BUN/ Creatinine Ratio Cancelled Microbiology 06/13 07 BLOOD: Blood Culture - RECD 06/13 06 BLOOD: Blood Culture - COLB 06/11 1444 UPPER RESP: Surveillance Culture - CAN Cancelled: NO SWAB COLLECTED 06/10 1740 BLOOD: Blood Culture - RES GRAM POSITIVE COCCI 06/10 1705 BLOOD: Blood Culture - RES 06/10 1650 URINE ROUT: Urine Culture - COMP ENTEROCOCCUS PROTEUS MIRABILIS 06/10 1006 BLOOD: Blood Culture - CAN Cancelled: Cancelled via OE: Duplicate Order Assessment/Plan Assessment: 48 y/o female from [facility] with mutliple medical problems including fibromyalgia and depression admitted for elective anterior cervical decompression and fusion of C5-C7 with autologous iliac crest bone graft on 06/03/2018 returned three days later for acute left-sided hip pain and found to have traumatic avulsion fracture of left anterior iliac spine. She is now post op day 4 s/p ORIF anterior iliac spine on 06/09/2018 and posterior cervical/thoracic laminectomies and fusion C5-T2 on 06/09/2018. Early hospital course was complicated by sepsis with OR cultures from left hip positive for gram negative rods (proteus). Patient was transferred to telemetry due to tachycardia. Blood cultures were positive for gram positive cocci in clusters (likely due to contamination rather than bacteremia) and urine cultures were positive for enterococcus and proteus. Plan: #Chronic/post-operative pain: Upon re-evaluation, patient was found to be in acute pain, crying and complaining of "10 and more" pain in her neck and left hip after working with PT and moving from bed to chair. We will order fentanyl patch and consult with pain management. She is also receiving Percocet, Flexeril , and Ultram for pain. #Depression: patient has endorsed feelings of worsening depression due to pain. We have consulted with psychiatry who will evaluate the patient. #Sepsis with gram negative rods (proteus) from OR culture: patient was treated perioperatively with clindamycin and was treated empiricaly with vancomycin (day 4) and ceftaz which has since been discontinued. Ceftriaxone 2 gm IV daily was started today. We will consult with ID regarding appropriate antibiotic coverage , given the species cultured from the patient's wound and urine. Patient's leukocytosis has improved and WBC is 8.9 today (improved from 10.3 yesterday). She has remained afebrile and does not meet SIRS criteria at this time. Repeat CBC and BMP in the am. Discontinue lactated ringers. No need for IVF at this time. #Positive urine cultures (enterococcus and proteus): patient is receiving ceftriaxone (day 1) which is appropriate coverage for species isolated from urine and left hip. #Positive blood cultures (coagulase negative staph): likely secondary to contamination and not sales representative rural power of true bacteremia. Repeat cultures pending. #Sinus tachycardia: likely due to sepsis; however, PE cannot be ruled out given that patient's Wells' score is 3.0, she is not on anticoagulation therapy, and she endorses pleuritic chest pain. We will obtain d-dimer and EKG. Continue with telemetry monitoring. #S/p cervical decompression and fusion of C5-C7 with autologous iliac crest bone graft on 06/03/2018, s/p ORIF anterior iliac spine on 06/09/2018 and posterior cervical/thoracic laminectomies and fusion C5-T2 on 06/09/2018: per surgery PA, patient should increase ambulation as tolerated. Patient has been evaluated by PT and OT will also see the patient. Activity is severely limited due to pain at this time. #Femoral line: patient had femoral line placed by surgical PA on 06/10/2018 due to poor peripheral access. As she is receiving IV antibiotics and pain medications, femoral line should be left in place for continued access until DC home. #DVT prophylaxis: mechanical prophylaxis with ALPs. Start enoxaparin 30 mg SC QD. #Bowel function: patient has not yet had a bowel movement and is receiving dulcolax, colace, and magnesium oxide. Will continue to monitor for return of bowel function. #Diet: regular diet #Code status: full code
--- NOTE | 2018-06-13 11:24 | Cons- Psychiatry ---
Psychiatric Consult Date of Consult: 06/13/18 Reason for Consult: Asked to assess review depression/anxiety History of Present Illness: This 48-year-old female from [facility] was initially admitted on June 03 for cervical decompression with left iliac crest bone graft. On June 06 she presented with severe pain in her left flank and thigh. She was diagnosed with traumatic evulsion of the left anterior superior iliac spine in the context of severe osteoporosis. She had ORIF on June 09. Left hip culture grew gram- negative rods and she was transferred to medicine. The patient has reportedly been tearful, anxious and seems not to be participating fully in her recovery. The patient reports that "yesterday woke up feeling unhappy and very sad". She reports that until yesterday her mood was "flag maker". She feels "overwhelmed with everything, it seems everything is going well and instead of getting better ". The patient says she had a friend who was admitted to hospital for what was to be a minor surgery on her leg and who following 6 months of complications. She reports feeling frightened and anxious. She reports "I am doing everything they tell me to do but this I am not". The patient reports that her appetite is good, she is future oriented and is not suicidal. Sleep has been poor for several years "because of the pain". There are no psychotic symptoms. Past psychiatric history: The patient went to see a psychiatrist/therapist about 3 years ago in order to get into a fibromyalgia support group. She attended once only as "they made me feel that I was wrong" and they left her sitting in a waiting room. She has never taken any psychiatric medication. She denies any history of deliberate self-harm or suicide attempts. Substance abuse history: Patient denies Family psychiatric history: Brother is cannabis dependent. No other family history of mental illness or substance abuse. Past medical history: Fibromyalgia, osteoporosis, asthma, spinal stenosis, degenerative joint disease, osteoarthritis, status post cervical decompression with bone graft from left iliac crest. Patient is currently septic and on IV antibiotics. The patient has never had any prior surgery. Social history: The patient lives in [facility]. 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 She is worked at this for 14 years. 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 She reports that she has a good support network in [facility] and has friends. Her godmother is here with her and staying at a local hotel. Allergies: Coded Allergies: Penicillins (Severe, anaphylaxis 06/06/18) nut - unspecified (Severe, ANAPHYLAXIS 06/06/18) pineapple (Severe, anaphylaxis 06/06/18) Uncoded Allergies: chlorine (Severe, anaphylaxis 05/03/18) Past History Past Medical History Neurological: dizziness EENT: allergies, rhinitis Cardiovascular: NONE Respiratory: asthma Gastrointestinal: NONE Hepatic: NONE Renal: NONE Musculoskeletal: disk herniation, degen joint disease, fibromyalgia, osteoarthritis, spinal stenosis Psychiatric: depression, insomnia Endocrine: obesity Blood Disorders: NONE Cancer(s): NONE CORE ANALYST/Reproductive: endometriosis Past Surgical History Surgical History: 1 cervical spine surgery left ilaic spine harvesting for bone graft Substance Abuse Treatment Comments: See H&P Assessment/Plan Mental Status Orientation: Person, Place, Situation Mental Status Exam: The patient is a 48-year-old black female with long braided hair extensions wearing cervical collar. She was encountered sitting by her bed with her tray untouched in front of her although she stated she was hungry. She was alert and oriented 3. Eye contact was poor. She stopped continually throughout the interview. Speech was normal in rate, rhythm, volume and tone. She described her mood is "overwhelmed". Her affect was anxious. She was not suicidal or homicidal. Thought process was normal in tempo, stream and form with no delusions or obsessions. Attention and concentration were good. There is no perceptual abnormality. Impulse control was good. Intelligence level is likely average, fund of knowledge average, use of language appropriate. Recent and remote memory are intact. The patient's insight is fair, judgment unimpaired. Lab Results: Lab Anion Gap 8 06/13/18 0700 BUN 9 mg/dL 06/13/18 07 C-React Prot High Sens > 15.0 mg/L H 06/13/18 07 C-Reactive Prot, Quant > 9.0 mg/dL H 06/13/18 07 Carbon Dioxide 31 mmol/L H 06/13/18 0700 Chloride 97 mmol/L L 06/13/18 07 Creatinine 0.6 mg/dL 06/13/18 07 Potassium 4.0 mmol/L 06/13/18 0700 Sodium 136 mmol/L L 06/13/18 07 ESR Westergren 85 MM H 06/13/18 07 Hct 34.9 % L 06/13/18 07 Hgb 11.7 G/DL L 06/13/18 07 MCH 29.2 PG 06/13/18699 MCHC 33.6 G/DL 06/13/18 07 MCV 86.9 FL 06/13/18 07 Plt Count 314 /CUMM 06/13/18 07 RBC 4.02 /CUMM L 06/13/18 07 RDW 13.7 % 06/13/18 07 WBC 8.9 /CUMM 06/13/18 07 Ur Epithelial Cells MOD H 06/10/18 1650 Ur Specific [place] >= 1.030 06/10/18 1650 Urine Bacteria MANY H 06/10/18 1650 Urine Clarity HAZY H 06/10/18 1650 Urine Color YEL 06/10/18 1650 Urine Ketones NEG 06/10/18 1650 Urine Nitrite NEG 06/10/18 1650 Urine Protein NEG MG/DL 06/10/18 1650 Urine WBC 1-3 /HPF H 06/10/18 1650 Urine pH 6.0 06/10/18 1650 Diffential Diagnosis: -Adjustment disorder with disturbance of emotion -Rule out cluster C personality traits Impression: 48-year-old female with history of fibromyalgia and chronic pain as well as several medical problems. She is status post surgery 2. The patient is presenting with extreme distress and complains of pain which are impeding her recovery. She is not psychotic. She is motivated for recovery. She is not suicidal or homicidal. She denies any psychiatric history. She denies anxiety traits at baseline. Provisional Treatment Plan: 1. Cymbalta initially at 30 mg daily. This may offer some benefit to her mood but would also offer benefit to fibromyalgia. It can be increased to 60 mg in 1 week if well tolerated. 2. Consider gabapentin for anxiety 3. Avoid benzodiazepines if possible 4. The patient may benefit from further postural care involvement 5. Other management as per medical team Thank you for consulting us on this patient. Please feel free to contact us if we can be of any further assistance.
--- NOTE | 2018-06-13 13:47 | PN- Infect Dx ---
Subjective Subjective: No fever; persistent neck pain. Review of Systems Comments: 12 points reviewed as noted, otherwise negative. Objective Last 24 Hrs of Vital Signs/I&O Vital Signs Date Time Temp Pulse Resp B/P B/P Pulse O2 O2 Flow FiO2 Mean Ox Delivery Rate 06/13 0659 99.2 118 22 162/74 96 Room Air 06/12 2210 99.0 123 26 132/76 94 Room Air 06/12 1409 99.1 112 18 136/64 94 Room Air Intake & Output 06/13 1600 06/13 0800 06/13 0000 Intake Total 800 1180 Output Total 525 825 Balance 275 355 Intake, IV 600 820 Intake, Oral 200 360 Output, Urine 525 825 Physical Exam Other Physical Findings: General- well nourished, obese middle aged AAF, NAD HEENT- NCAT, anicteric sclera, moist mucous membranes Neck- C-collar in place; post cervical incision malcolm in place, no erythema/ drainage; ant sx incision steristrips in place; no local erythema Cardio- Normal S1/S2 no m/g/r auscultated Pulm-CTA anteriorly Abd- Soft, NT, proruberant, BS+, L inguinal sx incision, malcolm in place w/o erythema Neuro- Awake and alert, oriented x3 Ext- no c/c; fem line Skin: warm/dry Results Last 24 Hours of Lab Results: Laboratory Tests 06/13 0700 Chemistry Sodium (137 - 145 mmol/L) 136 L Potassium (3.5 - 5.1 mmol/L) 4.0 Chloride (98 - 107 mmol/L) 97 L Carbon Dioxide (22 - 30 mmol/L) 31 H Anion Gap (5 - 16) 8 BUN (7 - 17 mg/dL) 9 Creatinine (0.5 - 1.0 mg/dL) 0.6 Estimated GFR (>60 ml/min) > 60 BUN/Creatinine Ratio (7 - 25 %) 15.0 Magnesium (1.6 - 2.3 mg/dL) 1.9 C-Reactive Prot, Quant (<1.0 mg/dL) > 9.0 H C-React Prot High Sens (1.0 - 3.0 mg/L) > 15.0 H Hematology CBC w Diff NO MAN DIFF REQ WBC (4.8 - 10.8 /CUMM) 8.9 RBC (4.20 - 5.40 /CUMM) 4.02 L Hgb (12.0 - 16.0 G/DL) 11.7 L Hct (37 - 47 %) 34.9 L MCV (81.0 - 99.0 FL) 86.9 MCH (27.0 - 31.0 PG) 29.2 MCHC (33.0 - 37.0 G/DL) 33.6 RDW (11.5 - 14.5 %) 13.7 Plt Count (130 - 400 /CUMM) 314 MPV (7.4 - 10.4 FL) 8.4 Gran % (42.2 - 75.2 %) 77.4 H Lymphocytes % (20.5 - 51.1 %) 12.7 L Monocytes % (1.7 - 9.3 %) 7.8 Eosinophils % (0 - 5 %) 1.8 Basophils % (0.0 - 2.0 %) 0.3 Absolute Granulocytes (1.4 - 6.5 /CUMM) 6.9 H Absolute Lymphocytes (1.2 - 3.4 /CUMM) 1.1 L Absolute Monocytes (0.10 - 0.60 /CUMM) 0.7 H Absolute Eosinophils (0.0 - 0.7 /CUMM) 0.2 Absolute Basophils (0.0 - 0.2 /CUMM) 0 ESR Westergren (0 - 20 MM) 85 H Toxicology Random Vancomycin (ug/ml) 25.1 Last 24 Hours of Joey Results: SPEC #: [id number] SHIRAZ: 06/13/18 STATUS: RECD RECD: 06/13/18 [facility] DR: Bull CURTIS,Mota SOURCE: BLOOD ENTR: 06/13/18-[address] [facility] [address]: Ruddy CURTIS, Rehan SPDESC: 2ND/VENOUS Demetrius CURTIS,Bakari Unknown ORDERED: BLOOD CULTURE Procedure Result BLOOD CULTURE PENDING Recent Imaging Studies: CT Pelvis IMPRESSION: Postsurgical changes in the region of the right anterior-superior iliac crest. The anterior-superior iliac spine is inferiorly displaced, presumably retracted by the sartorius origin, which may account for the clinical history. Correlate with the surgical procedure. DICTATED BY: Keven Rojas MD DATE/TIME DICTATED:06/06/181535 MEDICAID SPECIALIST:[email or web address] DATE/TIME TRANSCRIBED:06/06/18 / 1536 Assessment/Plan ID Impression: 48 y/o female who is 4 days S/P Anterior Cervical decompression with fusion C5- C7 with iliac crest bone graft (06/03/18), readmitted on 06/07; s/p S/p ORIF left ASIS traumatic avulsion fracture, underlying severe osteoporosis; hosp course c/ b early sepsis. Patient developed on 06/10 fever, sinus tachycardia; abnl blood work (leukocytosis; now resolved); of note OR cx + Proteus mirabilis; L inguinal crest area ? small seroma (infected); clinically improved; persistent lower neck pain.. Question UTI vs asymptomatic bacteriuria; UC + Proteus/Enterococcus (sensitivity as noted) Bacteremia (SCN; likely a contaminant); repeat BC from today pnd Allergy to PCN (type 1) Elev ESR (85); Suggestion: 1. Cont Ceftriaxone 2 gm daily D#2; once ready for discharge oral abx (Cipro 750 mg po bid) therapy for total 2 weeks; monitor ESR weekly; if it remains elevated further imaging warranted eval OM (bone scan/MRI cervical spine and of the L illiac crest). 2. F/U BC's from today; d/c iv vancomycin; trough supratherapeutic at 25 today. 3. EKG in am to eval QT interval. 4. D/C femoral line; if peripheral iv difficult to obtain consider PICC line placement.
--- NOTE | 2018-06-13 14:08 | PN- Orthopedic ---
Subjective Subjective: Patient c/o continued postop incisional pain and increased pain with movement. Up in chair and to commode. No ambulation out of room as of yet. + c/o neuritis in UE and left ant. thigh, (likely secondary to superficial femoral cutaneous nerve irritation/edema from surgery.) No N/V. Hai. po narcotics. No CP/SOB currently. + low grade temp. (99.2). Labs noted. WBC improved. ID rec po Cipro x 2 weeks and potential rehab facility. Review of Systems: Remarkable for the above complaints. Objective Vital Signs and I&Os Vital Signs Date Time Temp Pulse Resp B/P B/P Pulse O2 O2 Flow FiO2 Mean Ox Delivery Rate 06/13 0659 99.2 118 22 162/74 96 Room Air 06/12 2210 99.0 123 26 132/76 94 Room Air Intake & Output 06/13 1600 06/13 0800 06/13 0000 06/12 1600 06/12 0800 06/12 0000 Intake Total 800 1180 1600 400 400 Output Total 525 825 800 Balance 275 355 800 400 400 Intake, IV 326 968 1915 400 Intake, Oral 200 360 500 400 Number 1 Bowel Movements Output, Urine 525 825 800 Patient 223 lb Weight Weight Bed scale Measurement Method Physical Exam General Appearance: well developed/nourished, alert, awake, anxious, mild distress Neck: Incisions C/D/I. Dressings changed. Respiratory: normal breath sounds, no respiratory distress Cardiovascular: regular rate/rhythm Peripheral Pulses: 2+ tibialis posterior (R), 2+ tibialis posterior (L), 2+ dorsalis pedis (R), 2+ dorsalis pedis (L) Abdomen: soft, non-tender, globoid Back: left iliac graft incision sl. moist. Dressings C/D/I. Changed. Neurologic/Psychiatric: Neurovascularly unchanged and stable with no new or worsening gross motor or sensory loss in mars. UE/LE. Skin: intact, normal color, diaphoresis Assessment/Plan Assessment/Plan Assessment: 1. S/p ACDF/PCDF with left iliac crest bone harvest and ORIF left traumatic fracture of ASIS. 2. Severe Osteoporosis 3. ? Wound infection-on IV Rocephin and Vanco- WBC normalized. ESR:85 will follow 4. UTI-On IV Rocephin and Vanco- Possible transition to po Cipro 5. ?Contaminated blood cultures-repeat pending 6. Sinus tachycardia Plan: Await repeat blood cultures in hopes to transition to po antibiotics and transfer to rehab PT- ambulation/bed mobility DVT prophylaxis ok Medicine/ID/psych recs appreciated. Problem List: 1. Fibromyalgia 2. Asthma 3. Endometriosis 4. Allergic rhinitis 5. Depression 6. Insomnia Attending MD Review Statement Attending Statement Attending MD Statement: discuss w/resident/PA/FINANCIAL QUANTITATIVE ANALYST, agreed w/resident/PA/FINANCIAL QUANTITATIVE ANALYST
--- NOTE | 2018-06-13 16:00 | Discharge Summary ---
Visit Information Visit Dates Admission Date: 06/07/18 Discharge Date: 06/16/18 Hospital Course Course Attending Physician: Bakari Romo MD Primary Care Physician: Unknown Hospital Course: 48-year-old female with a past medical history of asthma, disc herniations, degenerative joint disease, spinal stenosis, fibromyalgia, diabetes mellitus?, Osteoarthritis, recent anterior cervical decompression and fusion surgery of C5- C7 and iliac crest bone harvesting done on June 03, 2018, was brought in by ambulance for left flank and thigh pain 1 day. The patient was doing fine after her cervical spine surgery and left iliac crest bone harvesting done on June 03, 2018. She was bathing and walking with a walker; Until the morning of admission she suddenly heard a pop in her left flank/left hip/left thigh associated with a 15/10 sharp pain. Pain was not relieved by Percocet, worse with movement. After the onset of pain she was able to walk a few steps, she felt like her whole leg was numb. On review of systems: Constipation not relieved by MiraLAX, cough 1 day associated with small amount of whitish phlegm, numbness and tingling on the surgical area since the of surgery. She does complain of increased urinary frequency and leaking today. She denies pain in her neck after cervical spine surgery, fever chills, nausea, vomiting, chest pain, shortness of breath, diarrhea, dysuria, hematuria, abdominal pain, changes in vision or hearing. Hospital course: Patient was admitted for posterior cervical and thoracic Hospital courselaminectomies C5 6 C6 7 T1 2. Instrumented fusion C567 T1 to. Lateral fusion with autologous iliac crest morselized bone graft C5 6 7 T1 tube. ORIF of fractured anterior iliac spine left side. Patient was transferred to telemetry in view of sinus tachycardia. Pulmonary embolism was ruled out using CTA and had negative bilateral lower extremity Doppler. Due to poor peripheral vascular access patient had a right femoral line which was removed after 4 days with no complication. Patient OR cultures and urine culture grew Proteus mirabilis. Patient's urine culture also grew enterococcus. Patient was asymptomatic. Patient's blood culture was positive for coagulase- negative staph which is likely contaminant. Patient was seen by infectious disease software developer consultant and was started on ceftazidime and vancomycin initially and once cultures were read, her vancomycin was DC'd and she was switched from ceftazidime to ceftriaxone according to the culture and sensitivity. Given her OR culture showing evidence of osteomyelitis patient needs 4 weeks of antibiotics. Patient will be sent to acute -term rehab with p.o. ciprofloxacin 750 mg twice daily to complete a course of 4 weeks of antibiotics. Patient continued having sinus tachycardia hence she was started on low-dose metoprolol 12.5 mg twice daily. Cardiology was consulted who suggested to continue the current management and echocardiogram was done which showed normaql EF. Patient will follow-up with Dr. Romo as outpatient. Allergies: Coded Allergies: Penicillins (Severe, anaphylaxis 06/06/18) nut - unspecified (Severe, ANAPHYLAXIS 06/06/18) pineapple (Severe, anaphylaxis 06/06/18) Uncoded Allergies: chlorine (Severe, anaphylaxis 05/03/18) Pertinent Lab Results: CTA QUALITY OF STUDY/CONTRAST BOLUS: Satisfactory PULMONARY ARTERIES: No central or segmental pulmonary emboli. THORACIC AORTA: No aneurysm or dissection. LUNG: No acute infiltrate. The central bronchial airways are open. No interstitial or reticular opacity. There is a linear scar in the superior segment of right lower lobe. PLEURA: No pleural effusion or pneumothorax. MEDIASTINUM: Normal heart size. No pericardial effusion. No hilar or mediastinal lymphadenopathy. No evidence of septal bowing or right heart strain. CHEST WALL/AXILLA: No axillary or internal mammary lymphadenopathy. OSSEOUS STRUCTURES: No acute or suspicious osseous abnormality. Was appendix closure wires seen at the posterior spinous process of the lower cervical spine. UPPER ABDOMEN: Unremarkable. No reflux of contrast into the hepatic veins to suggest elevated right heart pressures. IMPRESSION: Normal CT of chest. No evidence of pulmonary embolism. VTE: negativ Venous doppler lower extremity No evidence of deep venous thrombosis involving the bilateral lower extremities. Disposition Summary Disposition Principal Diagnosis: Spinal Stenosis cervical and thoracic [id number]-T2 Fracture of Anterior superior iliac spine (left) secondary to osteoporis and trauma Additional Diagnosis: Intractible Left flank/thigh pain with numbness after procedure S/P Anterior Cervical decompression with fusion C5-C7 with iliac crest bone graft (06/03/18) with post operative infection Sepsis resolved Sinus Tachycardia Discharge Disposition: SNF Discharge Instructions General Discharge Information Code Status: Full Code Patient's Diet: Heart healthy diet Patient's Activity: As tolerated Follow-Up Instructions/Appts: Please follow-up with your orthopedic surgeon within 1-2 weeks of discharge Medications at Discharge Discharge Medications: Stop taking the following medications: Oxycodone HCl/Acetaminophen (Percocet 5-325 MG Tablet) 5 MG-325 MG TABLET ORAL EVERY 4-6 HOURS as needed for PAIN Qty = 90 Continue taking these medications: Albuterol Sulfate (Ventolin Hfa) 90 MCG HFA.AER.AD 2 Puff Inhale through mouth EVERY 4-6 HOURS NEEDED as needed for ASTHMA Comments: NOT GIVEN DURING THIS HOSPITAL STAY Acetaminophen (Tylenol Extra Strength) 500 MG TABLET 1 Tablet ORAL THREE TIMES DAILY as needed for TEMP>101 Qty = 90 Comments: NOT GIVEN Bisacodyl (Dulcolax) 10 MG SUPP.RECT 1 Suppository RECTAL DAILY as needed for CONSTIPATION Qty = 10 Comments: NOT GIVEN Calcium Carbonate/Vitamin D3 (Os-Oliver 500+D3 Caplet) 500 MG-200 TABLET 1 Tablet ORAL TWICE DAILY Qty = 60 Comments: Last Taken:06/16/18 Time: 9AM Cholecalciferol (Vitamin D3) 1,000 UNIT TABLET 1 Tablet ORAL DAILY Qty = 30 Comments: Last Taken: 0756 Time: 06/04/18 Docusate Sodium (Colace) 100 MG CAPSULE 1 Capsule ORAL TWICE DAILY as needed for CONSTIPATION Qty = 60 Comments: Last Taken: 06/04/18 Time: 0756 Magnesium Hydroxide (Milk Of Magnesia) 400 MG/5 ML ORAL.SUSP 5 Milliliters ORAL EVERY 8 HOURS NEEDED as needed for CONSTIPATION Qty = 300 Comments: NOT GIVEN Multiple Vitamin (Multivitamins) 1 EACH TABLET 1 Tablet ORAL DAILY Qty = 30 Comments: Last Taken: 06/16/18 Time: 9AM Start taking the following new medications: Gabapentin (Gabapentin) 100 MG CAPSULE 100 Milligram ORAL EVERY 8 HOURS as needed for ANXIETY/AGITATION/INSOMNIA Qty = 90 No Refills Comments: Last Taken:06/13/18 Time:3PM Oxycodone HCl (Oxycodone HCl) 10 MG TABLET 1 Tablet ORAL Every 4 hours as needed for pain Qty = 15 No Refills Comments: Last Taken:06/16/18 Time:9AM Cyclobenzaprine HCl (Cyclobenzaprine HCl) 5 MG TABLET 5 Milligram ORAL THREE TIMES DAILY as needed for leg pain Qty = 90 No Refills Guaifenesin (Guaifenesin) 100 MG/5 ML LIQUID 10 Milliliters ORAL EVERY 4 HOURS NEEDED as needed for COUGH Qty = 1 No Refills Benzocaine/Menthol (Chloraseptic Sore Throat Lozng) 6 MG-10 MG LOZENGE 1 Lozenge ORAL EVERY 2 HOURS NEEDED as needed for Sore Throat Qty = 60 No Refills Comments: Last Taken:06/11/18 Time:1230AM Chloraseptic (Phenaseptic) 1.4 % SPRAY 2 Salix ON SKIN EVERY 2 HOURS NEEDED as needed for PAIN Qty = 1 No Refills Polyethylene Glycol 3350 (Miralax) 17 GRAM/DOSE POWDER 17 Gram ORAL TWICE DAILY Qty = 1 No Refills Comments: Last Taken:06/14/18 Time:9AM Lidocaine (Lidoderm) 5 % ADH..PATCH 1 Patch ON SKIN DAILY as needed for PAIN SCALE 1-3 (MILD) Qty = 90 No Refills Comments: Last Taken:06/16/18 Time:9AM Duloxetine Hydrochloride (Cymbalta) 30 MG CAPSULE.DR 30 Milligram ORAL DAILY Qty = 30 No Refills Comments: Last Taken:06/16/18 Time:9AM Diazepam (Diazepam) 5 MG TABLET 5 Milligram ORAL TWICE DAILY as needed for MUSCLE SPASM Qty = 12 No Refills Comments: Last Taken:06/16/18 Time:9AM Metoprolol Tartrate (Metoprolol Tartrate) 25 MG TABLET 12.5 Milligram ORAL TWICE DAILY Qty = 60 No Refills Comments: Last Taken:06/16/18 Time:9AM Ciprofloxacin HCl (Ciprofloxacin HCl) 750 MG TABLET 1 Tablet ORAL TWICE DAILY Qty = 46 No Refills Comments: Last Taken:06/16/18 Time:9AM Metformin HCl (Metformin HCl) 500 MG TABLET 1 Tablet ORAL TWICE DAILY Qty = 60 No Refills Comments: BEGIN TAKING TOMORROW, 06/17/18 Copies To: Demetrius CURTIS,Bakari Gilliam MD Review Statement Other Findings: Document clarification by MANAGER UI. Patient not seen or examined. Renato CURTIS
[2018-06-13 16:26] VITALS: BP 164/80
--- NOTE | 2018-06-13 16:45 | RADIOLOGY REPORT ---
EXAMINATION: XR PORTABLE CHEST CLINICAL INFORMATION: Sinus tachycardia. Pulmonary embolus. COMPARISON: Chest x-ray 06/08/2018 TECHNIQUE: Portable frontal view of the chest was obtained. Examination mildly limited secondary to patient body habitus. FINDINGS: Stable mild cardiomegaly. The lungs are hypoinflated. Subtle bibasilar opacities are nonspecific but at least in part attributable to attenuation artifact from overlying breast tissue. There is no gross lobar consolidation and no large pleural effusion. Incompletely visualized surgical changes of the cervical spine with new surgical changes present within the upper mediastinum/lower neck. IMPRESSION: 1. Examination is limited secondary to patient body habitus. 2. Hypoinflated lungs without gross lobar consolidation. 3. Subtle bibasilar opacities are nonspecific but at least in part attributable to attenuation artifact from overlying breast tissue
--- NOTE | 2018-06-13 17:24 | Cons- Pain Management ---
General Information and HPI Consulting Request Date of Consult: 06/13/18 Requested By: Bakari Romo MD History of Present Illness: I was asked to see this patient on the floor for a pain management consult. She is not a patient of my practice. She presents with anothe rperson standing by her bedside holding her hand. She is laying supine. She rates her pain in her left hip as a 10/10 and the pain in her cervical spine as a 11/10. She is approximately 11 days s/p a cervical fusion with a bone graft. Four days following this procedure, she had an idiopathic avulsion fracture of her left hip, likely secondary to severe osteoporois. She had an ORIF of the left femur and then developed an infection which seems to be resolved at this point and she was cleared to start oral antibiotics when dioscharged by ID. Allergies/Medications Allergies: Coded Allergies: Penicillins (Severe, anaphylaxis 06/06/18) nut - unspecified (Severe, ANAPHYLAXIS 06/06/18) pineapple (Severe, anaphylaxis 06/06/18) Uncoded Allergies: chlorine (Severe, anaphylaxis 05/03/18) Home Med List: Acetaminophen (Tylenol Extra Strength) 500 MG TABLET 1 TAB PO TID PRN TEMP>101 Albuterol Sulfate (Ventolin Hfa) 90 MCG HFA.AER.AD 2 PUF INH Q4-6 PRN PRN ASTHMA (Reported) Benzocaine/Menthol (Chloraseptic Sore Throat Lozng) 6 MG-10 MG LOZENGE 1 PAOLO PO Q2P PRN Sore Throat Bisacodyl (Dulcolax) 10 MG SUPP.RECT 1 SUP RC DAILY PRN CONSTIPATION Calcium Carbonate/Vitamin D3 (Os-Oliver 500+D3 Caplet) 500 MG-200 TABLET 1 TAB PO BID BONE HEALTH Chloraseptic (Phenaseptic) 1.4 % SPRAY 2 SPRAY EXT Q2P PRN PAIN Cholecalciferol (Vitamin D3) 1,000 UNIT TABLET 1 TAB PO DAILY BONE HEALTH Cyclobenzaprine HCl 5 MG TABLET 5 MG PO TID PRN leg pain Docusate Sodium (Colace) 100 MG CAPSULE 1 CAP PO BID PRN CONSTIPATION Guaifenesin 100 MG/5 ML LIQUID 10 ML PO Q4P PRN COUGH Lidocaine (Lidoderm) 5 % ADH..PATCH 1 PAT EXT DAILY PRN PAIN SCALE 1-3 (MILD) Magnesium Hydroxide (Milk Of Magnesia) 400 MG/5 ML ORAL.SUSP 5 ML PO Q8P PRN CONSTIPATION Multiple Vitamin (Multivitamins) 1 EACH TABLET 1 TAB PO DAILY GENERAL HEALTH Oxycodone HCl/Acetaminophen (Percocet 5-325 MG Tablet) 5 MG-325 MG TABLET 1-2 TAB PO Q4-6 PRN PAIN Oxycodone HCl/Acetaminophen (Percocet 5-325 MG Tablet) 5 MG-325 MG TABLET 1-2 TAB PO Q4-6 PRN PAIN Polyethylene Glycol 3350 (Miralax) 17 GRAM/DOSE POWDER 17 GM PO BID CONSTIPATION Past History Medical History Blood Transfusion Hx No Neurological: dizziness EENT: allergies, rhinitis Cardiovascular: NONE Respiratory: asthma Gastrointestinal: NONE Hepatic: NONE Renal: NONE Musculoskeletal: disk herniation, degen joint disease, fibromyalgia, osteoarthritis, spinal stenosis Psychiatric: depression, insomnia Endocrine: obesity Blood Disorders: NONE Cancer(s): NONE 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 MOTHER (2 CVA'SDIABETES). Age 67. FATHER (ALCOHOL DEPENDENCE). Age 68. GRANDMOTHER (DIABETESCOPD). Age 89. 2 BROTHERS (ALIVE AND WELL). Psychosocial History Where Do You Live? Home Who Do You Live With? 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 Exam & Diagnostic Data Last 24 Hrs of Vitals/I&Os: Vital Signs Date Time Temp Pulse Resp B/P B/P Pulse O2 O2 Flow FiO2 Mean Ox Delivery Rate 06/13 1626 100.2 122 20 164/80 94 Room Air 06/13 0659 99.2 118 22 162/74 96 Room Air 06/12 2210 99.0 123 26 132/76 94 Room Air Intake & Output 06/13 1600 06/13 0800 06/13 0000 Intake Total 800 1180 Output Total 525 825 Balance 275 355 Intake, IV 600 820 Intake, Oral 200 360 Output, Urine 525 825 Assessment/Plan Assessment/Plan: The following are my recommendations for this patient: - D/C all IV Dilaudid - D/C percocet 5mg po prn Q4 hours - D/C percocet 10mg po prn Q6 hours - Begin Oxycodone 10mg po prn Q4 hours - Continue fentanyl patch 25mcg Q72 hours - Trial valium 5mg po bid prn for muscle spasms - Trial celebrex 200mg po daily for inflammation ATC - Icing several times per day to left hip and groin Consult Acknowledgment - Thank you for your consult request.
[2018-06-13 20:00] VITALS: BP 140/86
--- NOTE | 2018-06-13 20:50 | ULTRASOUND REPORT ---
EXAMINATION: BILATERAL LOWER EXTREMITY DEEP VENOUS ULTRASOUND CLINICAL INFORMATION: Bilateral lower extremity pain and tenderness. Shortness of breath. COMPARISON: No similar prior examinations are available for comparison. TECHNIQUE: Duplex Doppler imaging with compression maneuvers were performed of the bilateral lower extremity deep venous systems. Examination limited secondary to patient body habitus and portable nature. FINDINGS: The bilateral visualized common femoral, femoral and popliteal veins demonstrate normal compressibility and color flow without evidence of venous thrombosis. Visualized portions of the bilateral calf veins demonstrate normal color fill-in suggesting patency. There is no evidence of a Condon's cyst. IMPRESSION: No evidence of deep venous thrombosis involving the bilateral lower extremities.
[2018-06-14] VITALS: BP 150/80
--- NOTE | 2018-06-14 03:01 | CT SCAN REPORT ---
EXAMINATION: CT ANGIOGRAM OF THE CHEST WITH AND WITHOUT CONTRAST (CT PULMONARY ANGIOGRAM FOR PE) CLINICAL INFORMATION: elevated d-dimer, recent surgery COMPARISON: Chest x-ray June 13, 2018 TECHNIQUE: Prior to contrast administration, noncontrast localization images were obtained. Subsequently, multidetector volumetric imaging was performed from the thoracic inlet to below the diaphragms following the administration of 63 mL Optiray 320 intravenous contrast. No contrast reaction reported. Sagittal, coronal, and MIP oblique sagittal reformatted images were obtained on the CT workstation, uploaded to PACS, and reviewed. Total exam dose-length product 461.76 mGy-cm. FINDINGS: QUALITY OF STUDY/CONTRAST BOLUS: Satisfactory PULMONARY ARTERIES: No central or segmental pulmonary emboli. THORACIC AORTA: No aneurysm or dissection. LUNG: No acute infiltrate. The central bronchial airways are open. No interstitial or reticular opacity. There is a linear scar in the superior segment of right lower lobe. PLEURA: No pleural effusion or pneumothorax. MEDIASTINUM: Normal heart size. No pericardial effusion. No hilar or mediastinal lymphadenopathy. No evidence of septal bowing or right heart strain. CHEST WALL/AXILLA: No axillary or internal mammary lymphadenopathy. OSSEOUS STRUCTURES: No acute or suspicious osseous abnormality. Was appendix closure wires seen at the posterior spinous process of the lower cervical spine. UPPER ABDOMEN: Unremarkable. No reflux of contrast into the hepatic veins to suggest elevated right heart pressures. IMPRESSION: Normal CT of chest. No evidence of pulmonary embolism. VTE: negative
[2018-06-14 04:00] VITALS: BP 118/76
[2018-06-14 07:47] LABS: ABSOLUTE BASOPHIL COUNT 0 /CUMM (0.0-0.2); ABSOLUTE EOSINOPHIL COUNT 0.1 /CUMM (0.0-0.7); ABSOLUTE GRANULOCYTE CT 6.8 /CUMM (1.4-6.5); ABSOLUTE LYMPH COUNT 0.6 /CUMM (1.2-3.4); ABSOLUTE MONOCYTE COUNT 0.7 /CUMM (0.10-0.60); BASOPHIL % 0.1 % (0.0-2.0); EOSINOPHIL % 1.4 % (0-5); GRANULOCYTE % 82.3 % (42.2-75.2); MEAN CORPUSCULAR HGB CONC 33.4 G/DL (33.0-37.0); MEAN CORPUSCULAR VOLUME 86.8 FL (81.0-99.0); MEAN PLATELET VOLUME 8.2 FL (7.4-10.4); PLATELET COUNT 352 /CUMM (130-400); RBC DISTRIBUTION WIDTH 13.9 % (11.5-14.5); RED BLOOD CELL CT 3.92 /CUMM (4.20-5.40); WHITE BLOOD CELL COUNT 8.3 /CUMM (4.8-10.8)
--- NOTE | 2018-06-14 07:48 | PN- Housestaff ---
Sharon Verde 06/14/18 0747: Subjective Follow-up For: Sepsis with Gram negative rods from OR culture Sinus Tachycardia, likely due to sepsis Intractible Left flank/thigh pain with numbness after procedure S/P Anterior Cervical decompression with fusion C5-C7 with iliac crest bone graft (06/03/18) Tele-Events Since Last Visit: Heart rate elevation yesterday to max of 150; this morning around 100-110s Subjective: Afebrile overnight. Patient had a T max of 101.1 yesterday evening. Patient is seen and examined this morning. Patient states she still has the neck pain and left hip pain. Patient states it is better with rest and worse with movement, especially when she has to go out of the room for certain procedures. Patient rates her left hip pain as a 4 out of 10 and her cervical area pain as a 8 out of 10. Patient otherwise denies any chest pain, palpitations, shortness of breath, n/v, and leg pain. Review of Systems Constitutional: Reports: see HPI. Objective Last 24 Hrs of Vital Signs/I&O Vital Signs Date Time Temp Pulse Resp B/P B/P Pulse O2 O2 Flow FiO2 Mean Ox Delivery Rate 06/14 0400 98.6 112 18 118/76 95 Room Air 06/14 0000 98.9 106 20 150/80 96 Room Air 06/13 2106 98.6 06/13 2000 89.6 116 20 140/86 95 Room Air 06/13 1848 101.1 06/13 1626 100.2 122 20 164/80 94 Room Air 06/13 1600 96 Room Air Intake & Output 06/14 1600 06/14 0800 06/14 0000 Intake Total 120 120 Output Total 600 600 Balance -480 -480 Intake, Oral 120 120 Number 3 Bowel Movements Output, Urine 600 600 Patient 221 lb Weight Weight Bed scale Measurement Method Physical Exam General Appearance: Alert, Oriented X3, Cooperative, No Acute Distress Skin: No Rashes, No Breakdown Skin Temp/Moisture Exam: Warm/Dry HEENT: Atraumatic Neck: cervical collar Cardiovascular: Regular Rate, Normal S1, Normal S2 Lungs: Clear to Auscultation Abdomen: Soft, No Tenderness Neurological: Normal Speech, Sensation Intact Extremities: No Edema, Normal Pulses Assessment/Plan Assessment: 48 year old woman with multiple medical problems significant for extensive spinal orthopedic disease brought in by ambulance for left flank / left thigh pain after walking when she heard a "pop" resulting in inability to ambulate and left thigh numbness. She is s/p anterior cervical discectomy C5-7 with instrumentation and left illiac crest bone graft on 06/[address] Romo. Post operatively patient was mildly confused most likely due to anesthesia and found to be tachycardic. EKG demonstrated sinus tachycardia to the 100s and T-max 101.2. Patient met sepsis criteria through tachycardia and temperature with probable source being the gram negative infection. Patient was transfered to telemetry for further evaluation of her sinus tachycardia. Seeing the patient on telemetry floor for following problems. Sepsis with Gram negative rods from OR culture: -IV fluids with Ringer lactate at the rate of 100 mL/h; dc'd 06/13 -Vancomycin 1.5 mg BID, dc'd -Ceftaz was discontinued and ceftriaxone 2gm was started 06/13 -Monitoring her WBC count -Her blood cultures are positive with gram-positive cocci. -Urine cultures are positive with gram-positive cocci and gram-negative rods. -Follow-up ID recommendations; continue Ceftriaxone 2 gm qd; once ready for discharge oral Cipro 750 mg po bid for total antibiotic course of 4 weeks; monitor ESR weekly and if it remains elevated further imaging to evaluate for osteomyelitis (bone scan/MRI cervical spine and of the L illiac crest) Sinus tachycardia: -Possibly due to sepsis -If she remained tachycardic continuously we will consider cardiac consult and echocardiogram. -Her TSH and T4 are within normal limits. -Patient has been Sinus tachycardia throughout the weekend, recently with a fever of 101.1; in the setting of recent surgery a suspicion for DVT/PE was considered; discussed with attending and initially ordered CT PE protocol but understood patient could not proceed with imaging due to having a triple lumen catheter and subsequently ordered a V/Q scan; patient went down for the V/Q scan but could not follow commands and refused the procedure; patient has a D-Dimer of 2663; patient receiving Enoxaparin 40 mg qd dvt prophylaxis currently -Chest CTA eventually performed with findings of no evidence of pulmonary embolism. -Femoral line was discontinued with antiseptic precautions -Metoprolol 12.5 mg bid to control heart rate S/P Posterior cervical / thoracic laminectomies C5-T2 with fusion: -On 06/09/2018 -Complaining of intractible Left flank/thigh pain with numbness after procedure -Continue pain medications. -Follow-up surgery recommendations; malcolm to be removed on 06/20/18 -Continue physical therapy History of spinal stenosis: -Continue pain medications and physical therapy -Diazepam 5 mg bid -Oxycodone 5 mg q4p History of fibromyalgia: -Continue pain medications and physical therapy -Psych consulted; recommended continue with Cymbalta 30 mg qd DVT prophylaxis: Mechanical and Enoxaparin 30 mg qd CODE STATUS; Full code Problem List: 1. Lower extremity pain, left 2. Sinus tachycardia Pain Ratin Pain Location: neck pain, left hip pain Pain Goal: Pain 7 or less Pain Plan: prn meds Tomorrow's Labs & Rationales: routine Shonna Montes 06/14/18 1358: Attending MD Review Statement Attending Statement Attending MD Statement: examined this patient, discuss w/resident/PA/SENIOR CONSULTANT, agreed w/resident/PA/SENIOR CONSULTANT, reviewed EMR data (avail), discussed with nursing, discussed with case mgmt Attending Assessment/Plan: 48 y/o female from [facility] who is s/p ACDF C5-7 with Instrumentation and left ICBG on 06/03/18, was discharged on 06/04/18 in stable condition; pt was planned for staged posterior cervical decompression/fusion planned for 06/09/18 due to severe osteoporosis discovered during her anterior procedure. Pt was readmitted on 06/06 with c/c of left hip pain. Pt on morning of admission says she was laying in bed when she felt something pop and had a sudden onset of pain in her left lateral hip. - Pelvic imaging showed- Postsurgical changes and left anterior superior iliac spine avulsion with inferior displacement. 06/09/18- pt underwent- "Posterior cervical and thoracic laminectomies C5 6 C6 7 T1 2. Instrumented fusion C567 T1 to. Lateral fusion with autologous iliac crest morselized bone graft C5 6 7 T1 tube. Placement of Pineda tongs removal of Pineda tongs use of fluoroscopy. Anterior iliac crest morselized bone harvest. ORIF of fractured anterior iliac spine left side." Sepsis with Proteus Mirabilis from OR culture and Urine cultures growing Enterococcus and Proteus - vancomycin decd and cont on ceftriaxone. -Follow-up ID recommendations. Switch to po cipro when ready for dc to STR. Sinus tachycardia: Pt says she is very anxious and panics easily since she has been in the hospital. will dw pschiatry and see if we need to change her meds to address the anxiety. S/P cervical spine surgery and ORIF left hip management as per ormadisono. Continue physical therapy History of fibromyalgia: Continue pain medications and physical therapy Psych consulted; started on cymbalta. d/w pscyh the care plan. added fenatnyl for pain control and appreciated pain management consult. alina pt the care plan. STR placement for rehab.
[2018-06-14 10:00] VITALS: BP 128/66
--- NOTE | 2018-06-14 11:34 | PN- Orthopedic ---
Subjective Subjective: Patient c/o continued postop incisional neck and left iliac graft pain. + mars. trap muscle tension/spasms. No N/V. No current CP/SOB. Hai. po. Voiding without difficulty. + BM. Ambulated around bed with min. assist. Took steps with walker with min. assist. Hai po pain meds. Afebrile currently. Labs normalizing. CTA and doppler mars. LE negative. Troponin -. Noted ID/pain managment recs. Review of Systems: Remarkable for the above complaints. Objective Vital Signs and I&Os Vital Signs Date Time Temp Pulse Resp B/P B/P Pulse O2 O2 Flow FiO2 Mean Ox Delivery Rate 06/14 1000 98.7 113 18 128/66 97 Room Air 06/14 0400 98.6 112 18 118/76 95 Room Air 06/14 0000 98.9 106 20 150/80 96 Room Air 06/13 2106 98.6 06/13 2000 89.6 116 20 140/86 95 Room Air 06/13 1848 101.1 06/13 1626 100.2 122 20 164/80 94 Room Air 06/13 1600 96 Room Air Intake & Output 06/14 1600 06/14 0800 06/14 0000 06/13 1600 06/13 0800 06/13 0000 Intake Total 120 120 930 046 7173 Output Total 600 600 400 525 825 Balance -480 -480 80 275 355 Intake, IV 600 820 Intake, Oral 120 120 480 200 360 Number 3 1 Bowel Movements Output, Urine 600 600 400 525 825 Patient 221 lb Weight Weight Bed scale Measurement Method Physical Exam General Appearance: well developed/nourished, alert, awake, anxious, mild distress Neck: Incisions C/D/I. Dressings changed. Respiratory: normal breath sounds, no respiratory distress Cardiovascular: regular rate/rhythm Peripheral Pulses: 2+ tibialis posterior (R), 2+ tibialis posterior (L), 2+ dorsalis pedis (R), 2+ dorsalis pedis (L) Abdomen: normal bowel sounds, soft Back: Left iliac crest bone graft incision C/D/I. No drainage. Slight warmth and erythema distal. Dressing changed. Neurologic/Psychiatric: Neurovascularly unchanged and stable with no new or worsening gross motor or sensory loss in mars. UE/LE. Skin: intact, normal color, diaphoresis Current Medications: Current Medications Sig/Samina Start time Last Medication Dose Route Stop Time Status Admin Acetaminophen 650 MG Q4P PRN 06/13 1845 AC 06/13 PO 1848 Acetaminophen 650 MG Q6P PRN 06/09 1545 DC PO Acetaminophen 1,000 MG Q6P PRN 06/09 1545 AC 06/10 N/A 1 UNIT IV 2146 Albuterol Sulfate 2 PUF Q4-6 PRN PRN 06/09 1245 AC INH Benzocaine/Menthol 1 PAOLO Q2P PRN 06/09 1545 AC 06/11 PO 0028 Bisacodyl 10 MG DAILY PRN 06/09 1545 DC VT Bisacodyl 10 MG DAILY NEEDED PRN 06/09 1245 AC VT Calcium/Vitamin D 500 MG BID 06/09 2100 AC 06/14 PO 0909 Ceftriaxone Sodium 2,000 MG DAILY 06/13 0900 AC 06/14 IV 0911 Celecoxib 200 MG DAILY 06/14 0900 AC 06/14 PO 1013 Cholecalciferol 1,000 IU DAILY 06/10 0900 AC 06/14 PO 0909 Cyclobenzaprine HCl 5 MG TID PRN 06/09 1545 DC 06/12 PO 1835 Diazepam 5 MG BID PRN 06/14 0800 AC 06/14 PO 1105 Diclofenac Sodium 1 MIKEL 4 TIMES/DAY PRN 06/13 1730 AC TOP Diphenhydramine HCl 0 .STK-MED ONE 06/14 012 DC .ROUTE Diphenhydramine HCl 25 MG ONCE ONE 06/14 0115 DC 06/14 IV 06/14 0116 0207 Diphenhydramine HCl 50 MG Q4-6 PRN PRN 06/12 0845 AC IV Docusate Sodium 100 MG BID PRN 06/09 1245 AC PO Duloxetine HCl 30 MG DAILY 06/13 1245 AC 06/14 PO 0909 Enoxaparin Sodium 40 MG DAILY 06/13 1130 AC 06/14 SC 0910 Fentanyl Citrate 25 MCG Q72H 06/13 1000 AC 06/13 TOP 1258 Gabapentin 100 MG Q8 PRN 06/13 1245 AC 06/13 PO 1522 Guaifenesin 10 ML Q4P PRN 06/09 1545 AC PO Hydromorphone HCl 0 .STK-MED ONE 06/14 0137 DC .ROUTE Hydromorphone HCl 0.6 MG ONCE ONE 06/14 0130 DC 06/14 IV 06/14 0131 0211 Hydromorphone HCl 0.4 MG ONCE PRN 06/13 1415 DC 06/13 IV 1527 Lidocaine/Diphenhydr/ 5 ML TID PRN 06/09 1545 AC Alum/Mg/Simeth PO Lorazepam 0 .STK-MED ONE 06/14 012 DC .ROUTE Lorazepam 1 MG ONCE ONE 06/14 0115 DC 06/14 IV 06/14 0116 0209 Magnesium Hydroxide 30 ML Q8P PRN 06/09 1545 AC 06/12 PO 0822 Metoprolol Tartrate 12.5 MG BID 06/14 0915 AC PO Morphine Sulfate 0 .STK-MED ONE 06/14 012 DC .ROUTE Morphine Sulfate 2 MG ONCE ONE 06/14 011 DC IV 06/14 011 Multivitamins 1 TAB DAILY 06/10 09 AC 06/14 Therapeutic PO 0909 Ondansetron HCl 4 MG Q6P PRN 06/09 1245 AC IV Oxycodone HCl 5 MG Q4P PRN 06/14 0800 AC 06/14 PO 1105 Oxycodone/ 0 .STK-MED ONE 06/13 2112 DC Acetaminophen PO Oxycodone/ 1 TAB Q4P PRN 06/09 1545 DC 06/13 Acetaminophen PO 2110 Oxycodone/ 2 TAB Q6P PRN 06/09 1545 DC 06/13 Acetaminophen PO 0124 Phenol 2 SPRAY Q2P PRN 06/09 1545 AC 06/12 EXT 0822 Polyethylene Glycol 17 GM BID 06/09 2100 AC 06/14 PO 0909 Senna 187 MG AT BEDTIME 06/09 2100 AC 06/12 PO 2146 Tramadol HCl 50 MG Q6 PRN 06/09 1545 DC 06/13 PO 0439 Vancomycin HCl 1,500 MG Q12H 06/10 1700 DC 06/13 Sodium Chloride 250 ML IV 0527 Results Last 48 Hours of Labs: Laboratory Tests 06/14 06/14 06/13 0700 0600 1615 Chemistry Sodium (137 - 145 mmol/L) 136 L Potassium (3.5 - 5.1 mmol/L) 4.3 Chloride (98 - 107 mmol/L) 100 Carbon Dioxide (22 - 30 mmol/L) 27 Anion Gap (5 - 16) 9 BUN (7 - 17 mg/dL) 12 Creatinine (0.5 - 1.0 mg/dL) 0.5 Estimated GFR (>60 ml/min) > 60 BUN/Creatinine Ratio (7 - 25 %) 24.0 Hemoglobin A1c Pending Troponin I (< 0.11 ng/ml) < 0.01 Coagulation D-Dimer High Sensitivty (0 - 243 ng/ml) 2663 H Hematology CBC w Diff NO MAN DIFF REQ WBC (4.8 - 10.8 /CUMM) 8.3 RBC (4.20 - 5.40 /CUMM) 3.92 L Hgb (12.0 - 16.0 G/DL) 11.4 L Hct (37 - 47 %) 34.0 L MCV (81.0 - 99.0 FL) 86.8 MCH (27.0 - 31.0 PG) 29.0 MCHC (33.0 - 37.0 G/DL) 33.4 RDW (11.5 - 14.5 %) 13.9 Plt Count (130 - 400 /CUMM) 352 MPV (7.4 - 10.4 FL) 8.2 Gran % (42.2 - 75.2 %) 82.3 H Lymphocytes % (20.5 - 51.1 %) 7.8 L Monocytes % (1.7 - 9.3 %) 8.4 Eosinophils % (0 - 5 %) 1.4 Basophils % (0.0 - 2.0 %) 0.1 Absolute Granulocytes (1.4 - 6.5 /CUMM) 6.8 H Absolute Lymphocytes (1.2 - 3.4 /CUMM) 0.6 L Absolute Monocytes (0.10 - 0.60 /CUMM) 0.7 H Absolute Eosinophils (0.0 - 0.7 /CUMM) 0.1 Absolute Basophils (0.0 - 0.2 /CUMM) 0 09/10 0700 Chemistry Sodium (137 - 145 mmol/L) 136 L Potassium (3.5 - 5.1 mmol/L) 4.0 Chloride (98 - 107 mmol/L) 97 L Carbon Dioxide (22 - 30 mmol/L) 31 H Anion Gap (5 - 16) 8 BUN (7 - 17 mg/dL) 9 Creatinine (0.5 - 1.0 mg/dL) 0.6 Estimated GFR (>60 ml/min) > 60 BUN/Creatinine Ratio (7 - 25 %) 15.0 Magnesium (1.6 - 2.3 mg/dL) 1.9 C-Reactive Prot, Quant (<1.0 mg/dL) > 9.0 H C-React Prot High Sens (1.0 - 3.0 mg/L) > 15.0 H Hematology CBC w Diff NO MAN DIFF REQ WBC (4.8 - 10.8 /CUMM) 8.9 RBC (4.20 - 5.40 /CUMM) 4.02 L Hgb (12.0 - 16.0 G/DL) 11.7 L Hct (37 - 47 %) 34.9 L MCV (81.0 - 99.0 FL) 86.9 MCH (27.0 - 31.0 PG) 29.2 MCHC (33.0 - 37.0 G/DL) 33.6 RDW (11.5 - 14.5 %) 13.7 Plt Count (130 - 400 /CUMM) 314 MPV (7.4 - 10.4 FL) 8.4 Gran % (42.2 - 75.2 %) 77.4 H Lymphocytes % (20.5 - 51.1 %) 12.7 L Monocytes % (1.7 - 9.3 %) 7.8 Eosinophils % (0 - 5 %) 1.8 Basophils % (0.0 - 2.0 %) 0.3 Absolute Granulocytes (1.4 - 6.5 /CUMM) 6.9 H Absolute Lymphocytes (1.2 - 3.4 /CUMM) 1.1 L Absolute Monocytes (0.10 - 0.60 /CUMM) 0.7 H Absolute Eosinophils (0.0 - 0.7 /CUMM) 0.2 Absolute Basophils (0.0 - 0.2 /CUMM) 0 ESR Westergren (0 - 20 MM) 85 H Toxicology Random Vancomycin (ug/ml) 25.1 Assessment/Plan Assessment/Plan Assessment: 1. s/p ACDF/PCDF with left iliac crest bone harvest and ORIF left traumatic avulsion of ASIS 2. Wound infection left iliac crest 3. UTI 4. Severe osteoporosis Plan: Appreciate ID recs. Continue PT for ambulation. Refer to Short term rehab. D/C Celebrex and Diclofenac due to inhibition of bone healing risks. Continue Oxy 10, Fentanyl, and Valium Bowel regimen. Ice prn pain Continue use of collar. [place] to be removed on 06/20/18. Problem List: 1. Fibromyalgia 2. Asthma 3. Endometriosis 4. Allergic rhinitis 5. Depression 6. Sinus tachycardia Attending MD Review Statement Attending Statement Attending MD Statement: discuss w/resident/PA/NEWSPAPER ILLUSTRATOR, agreed w/resident/PA/NEWSPAPER ILLUSTRATOR
--- NOTE | 2018-06-14 12:45 | PN- Infect Dx ---
Subjective Subjective: T-max 101.1. She complains of pain in the back of her neck and left hip. She denies any dysuria. Objective Last 24 Hrs of Vital Signs/I&O Vital Signs Date Time Temp Pulse Resp B/P B/P Pulse O2 O2 Flow FiO2 Mean Ox Delivery Rate 06/14 1204 106 118/76 06/14 1000 98.7 113 18 128/66 97 Room Air 06/14 0400 98.6 112 18 118/76 95 Room Air 06/14 0000 98.9 106 20 150/80 96 Room Air 06/13 2106 98.6 06/13 2000 89.6 116 20 140/86 95 Room Air 06/13 1848 101.1 06/13 1626 100.2 122 20 164/80 94 Room Air 06/13 1600 96 Room Air Intake & Output 06/14 1600 06/14 0800 06/14 0000 Intake Total 120 120 Output Total 600 600 Balance -480 -480 Intake, Oral 120 120 Number 3 Bowel Movements Output, Urine 600 600 Patient 221 lb Weight Weight Bed scale Measurement Method Physical Exam Other Physical Findings: She is awake and alert, moaning in pain with any movement Lungs are clear Heart regular rhythm with no murmur Abdomen is obese, soft, nontender with positive bowel sounds Back anterior and posterior cervical incision is clean, with no erythema or drainage Extremities left hip incision with slight erythema, mildly tender to palpation, with no drainage; no cyanosis, clubbing or edema of the lower extremities; right femoral triple-lumen catheter remains in place, with no inflammation at the site Results Last 24 Hours of Lab Results: Laboratory Tests 06/14 06/14 06/13 0700 0600 1615 Chemistry Sodium (137 - 145 mmol/L) 136 L Potassium (3.5 - 5.1 mmol/L) 4.3 Chloride (98 - 107 mmol/L) 100 Carbon Dioxide (22 - 30 mmol/L) 27 Anion Gap (5 - 16) 9 BUN (7 - 17 mg/dL) 12 Creatinine (0.5 - 1.0 mg/dL) 0.5 Estimated GFR (>60 ml/min) > 60 BUN/Creatinine Ratio (7 - 25 %) 24.0 Hemoglobin A1c (4.2 - 5.8 %) 6.9 H Troponin I (< 0.11 ng/ml) < 0.01 Coagulation D-Dimer High Sensitivty (0 - 243 ng/ml) 2663 H Hematology CBC w Diff NO MAN DIFF REQ WBC (4.8 - 10.8 /CUMM) 8.3 RBC (4.20 - 5.40 /CUMM) 3.92 L Hgb (12.0 - 16.0 G/DL) 11.4 L Hct (37 - 47 %) 34.0 L MCV (81.0 - 99.0 FL) 86.8 MCH (27.0 - 31.0 PG) 29.0 MCHC (33.0 - 37.0 G/DL) 33.4 RDW (11.5 - 14.5 %) 13.9 Plt Count (130 - 400 /CUMM) 352 MPV (7.4 - 10.4 FL) 8.2 Gran % (42.2 - 75.2 %) 82.3 H Lymphocytes % (20.5 - 51.1 %) 7.8 L Monocytes % (1.7 - 9.3 %) 8.4 Eosinophils % (0 - 5 %) 1.4 Basophils % (0.0 - 2.0 %) 0.1 Absolute Granulocytes (1.4 - 6.5 /CUMM) 6.8 H Absolute Lymphocytes (1.2 - 3.4 /CUMM) 0.6 L Absolute Monocytes (0.10 - 0.60 /CUMM) 0.7 H Absolute Eosinophils (0.0 - 0.7 /CUMM) 0.1 Absolute Basophils (0.0 - 0.2 /CUMM) 0 Last 24 Hours of Joey Results: Blood cultures June 13 negative Recent Imaging Studies: CTA of the chest June 14 negative for pulmonary embolism and with no evidence of pneumonia Dopplers of both lower extremities June 13 negative Assessment/Plan ID Impression: Recent fevers, with her white blood cell count normal, now on Ceftriaxone, Day 4 of treatment for an infection of the left anterior iliac crest at the site of the initial bone harvesting 3 days prior to admission, now 5 days status post ORIF of a fractured anterior iliac spine and posterior cervical and thoracic laminectomies with instrumented and iliac crest morselized bone graft fusion from C5-T2. 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 The positive urine cultures for Enterococcus and Proteus most likely represent contamination with no urinary symptoms and unremarkable urinalysis. The one positive blood culture for coag negative Staph also likely represents contamination. Suggestion: 1. Remove right femoral triple-lumen catheter and culture the tip 2. Continue Ceftriaxone but can consider changing to Ciprofloxacin 750 mg p.o. every 12 hours (will discuss with Orthopedics)
[2018-06-14 14:56] VITALS: BP 118/80
[2018-06-14] MEDS ORDERED: GABAPENTIN100 M2 PO (15:24)
[2018-06-14] MEDS ORDERED: CYMBALTA30 M1 PO (15:24)
[2018-06-14] MEDS ORDERED: DIAZEPAM5 M1 PO (15:24)
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
[2018-06-14 23:02] VITALS: BP 128/84
[2018-06-15 06:31] VITALS: BP 118/80
--- NOTE | 2018-06-15 07:11 | PN- Housestaff ---
Sharon Verde 06/15/18 0711: Subjective Follow-up For: Sepsis with Gram negative rods from OR culture Sinus Tachycardia, likely due to sepsis Intractible Left flank/thigh pain with numbness after procedure S/P Anterior Cervical decompression with fusion C5-C7 with iliac crest bone graft (06/03/18) Subjective: Afebrile overnight. Patient is seen and examined this morning. Patient states she was able to work with PT yesterday and walked around the room with assistance. Patient states her left hip pain and cervical pain is better at rest but still rates her pain as 8 out of 10. Patient reports some fatigue this morning but otherwise denies chest pain, shortness of breath, n/v, and abdominal pain. Review of Systems Constitutional: Reports: see HPI. Objective Last 24 Hrs of Vital Signs/I&O Vital Signs Date Time Temp Pulse Resp B/P B/P Pulse O2 O2 Flow FiO2 Mean Ox Delivery Rate 06/15 0631 98.7 100 18 118/80 97 Room Air 06/14 2302 98.5 88 20 128/84 93 06/14 2125 Room Air 06/14 2026 102 130/80 06/14 1456 98.7 118 20 118/80 96 Room Air 06/14 1204 106 118/76 06/14 1000 98.7 113 18 128/66 97 Room Air Intake & Output 06/15 0800 06/15 0000 06/14 1600 Intake Total 240 480 Output Total 450 Balance -210 480 Intake, Oral 240 480 Number 3 1 Bowel Movements Output, Urine 450 Patient 216 lb 221 lb Weight Weight Bed scale Measurement Method Physical Exam General Appearance: Alert, Oriented X3, Cooperative, No Acute Distress Skin: No Rashes, No Breakdown HEENT: Atraumatic Neck: cervical collar Cardiovascular: Normal S1, Normal S2, tachycardia Lungs: Clear to Auscultation Neurological: Normal Speech Extremities: No Edema, Normal Pulses Assessment/Plan Assessment: 48 year old woman with multiple medical problems significant for extensive spinal orthopedic disease brought in by ambulance for left flank / left thigh pain after walking when she heard a "pop" resulting in inability to ambulate and left thigh numbness. She is s/p anterior cervical discectomy C5-7 with instrumentation and left illiac crest bone graft on 06/[address] Romo. Post operatively patient was mildly confused most likely due to anesthesia and found to be tachycardic. EKG demonstrated sinus tachycardia to the 100s and T-max 101.2. Patient met sepsis criteria through tachycardia and temperature with probable source being the gram negative infection. Patient was transfered to telemetry for further evaluation of her sinus tachycardia. Seeing the patient on telemetry floor for following problems. Sepsis with Gram negative rods from OR culture: -IV fluids with Ringer lactate at the rate of 100 mL/h; dc'd 06/13 -Vancomycin 1.5 mg BID, dc'd -Ceftaz was discontinued and ceftriaxone 2gm was started 06/13; dc'd ceftriaxone ; started Ciprofloxacin 750 mg BID -Monitoring her WBC count -Her blood cultures are positive with gram-positive cocci. -Urine cultures are positive with gram-positive cocci and gram-negative rods. -Follow-up ID recommendations; continue Ceftriaxone 2 gm qd; once ready for discharge oral Cipro 750 mg po bid for total antibiotic course of 4 weeks; monitor ESR weekly and if it remains elevated further imaging to evaluate for osteomyelitis (bone scan/MRI cervical spine and of the L illiac crest) -Patient will be transferred to [place] per PT/OT recommendations requiring acute rehab placement; Address: [address] [place] [address], phone [phone], fax [phone], tax ID# [id number], we are requesting transfer to [place] and reason for ambulance is due to two recent cervical neck surgeries requiring a soft collar and partial weight bearing of the left leg Sinus tachycardia: -Possibly due to sepsis -If she remained tachycardic continuously we will consider cardiac consult and echocardiogram. -Her TSH and T4 are within normal limits. -Patient has been Sinus tachycardia throughout the weekend, recently with a fever of 101.1; in the setting of recent surgery a suspicion for DVT/PE was considered; discussed with attending and initially ordered CT PE protocol but understood patient could not proceed with imaging due to having a triple lumen catheter and subsequently ordered a V/Q scan; patient went down for the V/Q scan but could not follow commands and refused the procedure; patient has a D-Dimer of 2663; patient receiving Enoxaparin 40 mg qd dvt prophylaxis currently -Chest CTA eventually performed with findings of no evidence of pulmonary embolism. -Femoral line was discontinued with antiseptic precautions -Metoprolol 12.5 mg bid to control heart rate -TSH and Free T4 within normal range S/P Posterior cervical / thoracic laminectomies C5-T2 with fusion: -On 06/09/2018 -Complaining of intractible Left flank/thigh pain with numbness after procedure -Continue pain medications. -Follow-up surgery recommendations; malcolm to be removed on 06/20/18 -Continue physical therapy -Lidoderm 5% patch topically to left thigh area for pain control History of spinal stenosis: -Continue pain medications and physical therapy -Diazepam 5 mg bid -Oxycodone 5 mg q4p History of fibromyalgia: -Continue pain medications and physical therapy -Psych consulted; recommended continue with Cymbalta 30 mg qd DVT prophylaxis: Mechanical and Enoxaparin 30 mg qd CODE STATUS; Full code Problem List: 1. Lower extremity pain, left 2. Sinus tachycardia Pain Ratin Pain Location: left hip; cervical area Pain Goal: Pain 7 or less Pain Plan: prn meds Tomorrow's Labs & Rationales: routine SimonMiriamkan 06/15/18 1044: Attending MD Review Statement Attending Statement Attending MD Statement: examined this patient, discuss w/resident/PA/CAR MECHANIC, agreed w/resident/PA/CAR MECHANIC, reviewed EMR data (avail), discussed with nursing, discussed with case mgmt Attending Assessment/Plan: 48 y/o female from [facility] who is s/p ACDF C5-7 with Instrumentation and left ICBG on 06/03/18, was discharged on 06/04/18 in stable condition; pt was planned for staged posterior cervical decompression/fusion planned for 06/09/18 due to severe osteoporosis discovered during her anterior procedure. Pt was readmitted on 06/06 with c/c of left hip pain. Pt on morning of admission says she was laying in bed when she felt something pop and had a sudden onset of pain in her left lateral hip. - Pelvic imaging showed- Postsurgical changes and left anterior superior iliac spine avulsion with inferior displacement. 06/09/18- pt underwent- "Posterior cervical and thoracic laminectomies C5 6 C6 7 T1 2. Instrumented fusion C567 T1 to. Lateral fusion with autologous iliac crest morselized bone graft C5 6 7 T1 tube. Placement of Pineda tongs removal of Pineda tongs use of fluoroscopy. Anterior iliac crest morselized bone harvest. ORIF of fractured anterior iliac spine left side." Sepsis with Proteus Mirabilis from OR culture and Urine cultures growing Enterococcus and Proteus - vancomycin decd and cont on ceftriaxone. -Follow-up ID recommendations. Switch to po cipro when ready for dc to [facility]. Sepsis has resolved now. Sinus tachycardia: Pt says she is very anxious and panics easily since she has been in the hospital. will dw pschiatry and see if we need to change her meds to address the anxiety. S/P cervical spine surgery and ORIF left hip management as per orhto. Continue physical therapy. History of fibromyalgia: Continue pain medications and physical therapy Psych consulted; started on cymbalta. d/w the medical centery the care plan. added fenatnyl for pain control and appreciated pain management consult. On prn oxycodone and valium now.
[2018-06-15 07:51] LABS: ABSOLUTE BASOPHIL COUNT 0 /CUMM (0.0-0.2); ABSOLUTE EOSINOPHIL COUNT 0.2 /CUMM (0.0-0.7); ABSOLUTE GRANULOCYTE CT 6.6 /CUMM (1.4-6.5); ABSOLUTE MONOCYTE COUNT 0.7 /CUMM (0.10-0.60); BASOPHIL % 0.3 % (0.0-2.0); EOSINOPHIL % 2.5 % (0-5); GRANULOCYTE % 77.6 % (42.2-75.2); HEMATOCRIT 33.9 % (37-47); MEAN CORPUSCULAR HGB 28.8 PG (27.0-31.0); MEAN CORPUSCULAR VOLUME 87.1 FL (81.0-99.0); MEAN PLATELET VOLUME 8.6 FL (7.4-10.4); PLATELET COUNT 354 /CUMM (130-400); RBC DISTRIBUTION WIDTH 14.2 % (11.5-14.5); WHITE BLOOD CELL COUNT 8.5 /CUMM (4.8-10.8)
[2018-06-15] MEDS ORDERED: CIPROFLOXACIN750 M1 PO (10:12)
--- NOTE | 2018-06-15 10:20 | PN- Student ---
Subjective Subjective: Patient is seen and examined this morning. No overnight events reported. She states that her overall mood is more cheerful than it has been. She reports that the pain in her neck has improved while lying still (7/10) but worsens to 15/10 when she moves. She also reports that the pain in her left hip seems to be worsening, and she feels that the pain now extends into her left groin as well. Pain in the hip is worse with movement and was exacerbated yesterday when her bandages were changed. She rates the pain in the hip as a 5/10 at rest and as a 12/10 when she moves. She is eating without difficulty, has been having normal bowel movements, and denies any dysuria, hematuria, fevers, or chills. Femoral line was removed yesterday (06/14/2018). Objective Objective: Vitals: temperature - 98.7F, pulse - 100, respiratory rate - 18, blood pressure - 118/80, oxygen saturation - 97% on RA General: obese female lying in bed in no acute distress HEENT: soft cervical collar in place CV: sinus tachycardia, no murmurs, rubs, or gallops Pulmonary: unable to auscultate posterior lungfields as patient refused to sit up for examination, anterior lungs clear to auscultation bilaterally Abdomen: obese, soft, nontender, nondistended Lower extremities: left hip is mildly warm and is tender to light palpation, right hip nontender Neuro: strength right UE 5/5, strength left UE 3/5, strength right LE 4/5, strength left LE 2/5, exam somewhat limited by pain Psych: normal affect and concentration, reports improved mood Results Results: Laboratory Tests 06/15/18 0637: Anion Gap 8, Estimated GFR > 60, BUN/Creatinine Ratio 18.3, TSH 0.607, Free T4 1.14, CBC w Diff NO MAN DIFF REQ, RBC 3.90 L, MCV 87.1, MCH 28.8, MCHC 33.0, RDW 14.2, MPV 8.6, Gran % 77.6 H, Lymphocytes % 11.6 L, Monocytes % 8.0, Eosinophils % 2.5, Basophils % 0.3, Absolute Granulocytes 6.6 H, Absolute Lymphocytes 1.0 L, Absolute Monocytes 0.7 H, Absolute Eosinophils 0.2, Absolute Basophils 0 09/11/18 0700: Anion Gap 9, Estimated GFR > 60, BUN/Creatinine Ratio 24.0, CBC w Diff NO MAN DIFF REQ, RBC 3.92 L, MCV 86.8, MCH 29.0, MCHC 33.4, RDW 13.9, MPV 8.2, Gran % 82.3 H, Lymphocytes % 7.8 L, Monocytes % 8.4, Eosinophils % 1.4, Basophils % 0.1, Absolute Granulocytes 6.8 H, Absolute Lymphocytes 0.6 L, Absolute Monocytes 0.7 H, Absolute Eosinophils 0.1, Absolute Basophils 0 06/14/18 0600: Hemoglobin A1c 6.9 H 06/13/18 1615: Troponin I < 0.01, D-Dimer High Sensitivty 2663 H 06/13/18 0700: Anion Gap 8, Estimated GFR > 60, BUN/Creatinine Ratio 15.0, Magnesium 1.9, C- Reactive Prot, Quant > 9.0 H, C-React Prot High Sens > 15.0 H, CBC w Diff NO MAN DIFF REQ, RBC 4.02 L, MCV 86.9, MCH 29.2, MCHC 33.6, RDW 13.7, MPV 8.4, Gran % 77.4 H, Lymphocytes % 12.7 L, Monocytes % 7.8, Eosinophils % 1.8, Basophils % 0.3, Absolute Granulocytes 6.9 H, Absolute Lymphocytes 1.1 L, Absolute Monocytes 0.7 H, Absolute Eosinophils 0.2, Absolute Basophils 0, ESR Westergren 85 H, Random Vancomycin 25.1 Microbiology 06/13 915 BLOOD: Blood Culture - RES 06/13 700 BLOOD: Blood Culture - RES Assessment/Plan Assessment: 48 y/o female from [facility] with mutliple medical problems including fibromyalgia and depression admitted for elective anterior cervical decompression and fusion of C5-C7 with autologous iliac crest bone graft on 06/03/2018 returned three days later for acute left-sided hip pain and found to have traumatic avulsion fracture of left anterior iliac spine. She is now post op day 6 s/p ORIF anterior iliac spine on 06/09/2018 and posterior cervical/thoracic laminectomies and fusion C5-T2 on 06/09/2018. Early hospital course was complicated by sepsis with OR cultures from left hip positive for gram negative rods (proteus). Patient was transferred to telemetry due to tachycardia. Blood cultures were positive for gram positive cocci in clusters (likely due to contamination rather than bacteremia) and urine cultures were positive for enterococcus and proteus. Plan: #Chronic/post-operative pain: Fentanyl patch seems to be helping with pain at rest, but patient is still in significant pain with movement. We will add lidocaine patches for pain in the left hip. Patient will continue to work with PT. #Depression: patient states that she is feeling better today. She has been evaluated by psychiatry and was started on duloxetine 30 mg PO QD on 06/13, which may help with some of the patient's pain. #Sepsis with gram negative rods (proteus) from OR culture: patient was treated perioperatively with clindamycin and was treated empirically with vancomycin and ceftaz which have since been discontinued. Ceftriaxone 2 gm IV daily was started on 06/13/2018 (day 3). ID recommends continuing with this antibiotic and switching to Ciprofloxacin 750 mg PO BID once the patient is discontinued. Recommended minimum of 4 weeks treatment due to possible osteomyelitis. Patient' s leukocytosis has improved and WBC is 8.5 today. She has remained afebrile and does not meet SIRS criteria at this time. Repeat CBC and BMP in the am. #Positive urine cultures (enterococcus and proteus): as patient has no urinary symptoms, it is likely that this is due to contamination. Patient is receiving ceftriaxone which is appropriate coverage for species isolated from urine and left hip. #Positive blood cultures (coagulase negative staph): likely secondary to contamination and not client relations representative of true bacteremia. Repeat cultures pending. #Sinus tachycardia: Given patient's high risk for VTE, PE was suspected as etiology of sinus tachycardia. D-dimer obtained on 06/13/2018 was 2663; however, CTA chest and LE US were negative for evidence of PE or DVT. Patient has been evaluated by cardiology who feels that the tachycardia is physiologic and likely due to combination of dehydration, mild anemia, anxiety, and infection. TSH and free T4 were normal. Patient was started on metoprolol tartrate 12.5 mg PO BID. #S/p cervical decompression and fusion of C5-C7 with autologous iliac crest bone graft on 06/03/2018, s/p ORIF anterior iliac spine on 06/09/2018 and posterior cervical/thoracic laminectomies and fusion C5-T2 on 06/09/2018: per surgery PA, patient should increase ambulation as tolerated. Patient is seen by PT daily. Activity is still limited by pain. #DM: patient's A1C was 6.9 which meets criteria for DM. We will start her on sliding scale NovoLog. #Femoral line: discontinued on 06/13/2018. #DVT prophylaxis: mechanical prophylaxis with ALPs and enoxaparin 30 mg SC QD. #Diet: regular diet #Code status: full code #Disposition: PT recommendation is that patient should be transferred to [facility] for continued therapy and convalescence. Patient is to be evaluated today by client relations representative from [facility] facility regarding placement. Disposition will depend on placement to a facility.
--- NOTE | 2018-06-15 11:56 | PN- Orthopedic ---
Subjective Subjective: Patient c/o less neck and left hip pain. + hypersensitivity of left anterior thigh and less numbness. Ambulated with contact guard in hallway with PT. Tolerating partial weight bearing left leg. + BM. Voiding wihout difficulty. No fever/chills. No N/V. No CP/SOB. Jorge. po pain meds. + min. dizziness when getting up from sitting. Labs noted. WBC normal. Bcx -. Review of Systems: Remarkable for the above complaints. Objective Vital Signs and I&Os Vital Signs Date Time Temp Pulse Resp B/P B/P Pulse O2 O2 Flow FiO2 Mean Ox Delivery Rate 06/15 928 100 118/80 06/15 0631 98.7 100 18 118/80 97 Room Air 06/14 2302 98.5 88 20 128/84 93 06/14 2125 Room Air 06/14 2026 102 130/80 06/14 1456 98.7 118 20 118/80 96 Room Air 06/14 1204 106 118/76 Intake & Output 06/15 0000 06/14 0000 Intake Total 240 480 120 120 Output Total 450 600 600 Balance -210 480 -480 -480 Intake, Oral 240 480 120 120 Number 3 3 1 3 Bowel Movements Output, Urine 450 600 600 Patient 216 lb 221 lb 221 lb Weight Weight Bed scale Bed scale Measurement Method Physical Exam General Appearance: well developed/nourished, alert, awake, comfortable Neck: Incisions C/D/I. Dressings changed. Respiratory: normal breath sounds, no respiratory distress Cardiovascular: regular rate/rhythm Peripheral Pulses: 2+ tibialis posterior (R), 2+ tibialis posterior (L), 2+ dorsalis pedis (R), 2+ dorsalis pedis (L) Abdomen: normal bowel sounds, soft, non-tender Back: Left hip graft site incision C/D/I. Slight erythema distally, unchanged from yesterday. + min. edema. No drainage. Sl. tender to touch. Extremities: normal inspection, normal capillary refill, no edema Neurologic/Psychiatric: Neurovascularly improved in left quad with +4/5 strength. Neurovascular exam in mars. UE/LE stable without any new or worsening gross motor or sensory loss. Skin: intact, normal color, diaphoresis Current Medications: Current Medications Sig/Samina Start time Last Medication Dose Route Stop Time Status Admin Acetaminophen 650 MG Q4P PRN 06/13 1845 AC 06/13 PO 1848 Acetaminophen 1,000 MG Q6P PRN 06/09 1545 AC 06/10 N/A 1 UNIT IV 2146 Albuterol Sulfate 2 PUF Q4-6 PRN PRN 06/09 1245 AC INH Benzocaine/Menthol 1 PAOLO Q2P PRN 06/09 1545 AC 06/11 PO 0028 Bisacodyl 10 MG DAILY NEEDED PRN 06/09 1245 SC Calcium/Vitamin D 500 MG BID 06/09 2100 AC 06/15 PO 0928 Ceftriaxone Sodium 2,000 MG DAILY 06/13 900 DC 06/14 IV 0911 Celecoxib 200 MG DAILY 06/14 900 DC 06/14 PO 1013 Cholecalciferol 1,000 IU DAILY 06/10 900 AC 06/15 PO 0929 Ciprofloxacin 750 MG BID 06/15 1100 AC PO 06/19 205 Diazepam 5 MG BID PRN 06/14 08 AC 06/15 PO 0928 Diclofenac Sodium 1 MIKEL 4 TIMES/DAY PRN 06/13 1730 DC TOP Diphenhydramine HCl 50 MG Q4-6 PRN PRN 06/12 0845 AC IV Docusate Sodium 100 MG BID PRN 06/09 1245 AC PO Duloxetine HCl 30 MG DAILY 06/13 1245 AC 06/15 PO 0928 Enoxaparin Sodium 40 MG DAILY 06/13 1130 AC 06/15 SC 0930 Fentanyl Citrate 25 MCG Q72H 06/13 1000 AC 06/13 TOP 1258 Gabapentin 100 MG Q8 PRN 06/13 1245 AC 06/13 PO 1522 Guaifenesin 10 ML Q4P PRN 06/09 1545 AC PO Insulin Aspart 0 TIDAC 06/15 1200 AC SC Lidocaine 1 PAT DAILY 06/15 1016 AC TOP Lidocaine/Diphenhydr/ 5 ML TID PRN 06/09 1545 AC Alum/Mg/Simeth PO Magnesium Hydroxide 30 ML Q8P PRN 06/09 1545 AC 06/12 PO 0822 Metoprolol Tartrate 12.5 MG BID 06/14 0915 AC 06/15 PO 0928 Multivitamins 1 TAB DAILY 06/10 900 AC 06/15 Therapeutic PO 0929 Ondansetron HCl 4 MG Q6P PRN 06/09 1245 AC IV Oxycodone HCl 5 MG Q4P PRN 06/14 0800 AC 06/15 PO 09 Phenol 2 SPRAY Q2P PRN 06/09 1545 AC 06/12 EXT 0822 Polyethylene Glycol 17 GM BID 06/09 2100 AC 06/14 PO 09 Senna 187 MG AT BEDTIME 06/09 2100 AC 06/12 PO 2146 Results Last 48 Hours of Labs: Laboratory Tests 06/15 06/14 0637 0700 Chemistry Sodium (137 - 145 mmol/L) 135 L 136 L Potassium (3.5 - 5.1 mmol/L) 4.3 4.3 Chloride (98 - 107 mmol/L) 98 100 Carbon Dioxide (22 - 30 mmol/L) 29 27 Anion Gap (5 - 16) 8 9 BUN (7 - 17 mg/dL) 11 12 Creatinine (0.5 - 1.0 mg/dL) 0.6 0.5 Estimated GFR (>60 ml/min) > 60 > 60 BUN/Creatinine Ratio (7 - 25 %) 18.3 24.0 TSH (0.270 - 4.200 uIU/mL) 0.607 Free T4 (0.64 - 1.79 ng/dL) 1.14 Hematology CBC w Diff NO MAN DIFF REQ NO MAN DIFF REQ WBC (4.8 - 10.8 /CUMM) 8.5 8.3 RBC (4.20 - 5.40 /CUMM) 3.90 L 3.92 L Hgb (12.0 - 16.0 G/DL) 11.2 L 11.4 L Hct (37 - 47 %) 33.9 L 34.0 L MCV (81.0 - 99.0 FL) 87.1 86.8 MCH (27.0 - 31.0 PG) 28.8 29.0 MCHC (33.0 - 37.0 G/DL) 33.0 33.4 RDW (11.5 - 14.5 %) 14.2 13.9 Plt Count (130 - 400 /CUMM) 354 352 MPV (7.4 - 10.4 FL) 8.6 8.2 Gran % (42.2 - 75.2 %) 77.6 H 82.3 H Lymphocytes % (20.5 - 51.1 %) 11.6 L 7.8 L Monocytes % (1.7 - 9.3 %) 8.0 8.4 Eosinophils % (0 - 5 %) 2.5 1.4 Basophils % (0.0 - 2.0 %) 0.3 0.1 Absolute Granulocytes (1.4 - 6.5 /CUMM) 6.6 H 6.8 H Absolute Lymphocytes (1.2 - 3.4 /CUMM) 1.0 L 0.6 L Absolute Monocytes (0.10 - 0.60 /CUMM) 0.7 H 0.7 H Absolute Eosinophils (0.0 - 0.7 /CUMM) 0.2 0.1 Absolute Basophils (0.0 - 0.2 /CUMM) 0 0 06/14 06/13 0600 1615 Chemistry Hemoglobin A1c (4.2 - 5.8 %) 6.9 H Troponin I (< 0.11 ng/ml) < 0.01 Coagulation D-Dimer High Sensitivty (0 - 243 ng/ml) 2663 H Assessment/Plan Assessment/Plan Assessment: 1. S/p ACDF/PCDF with left iliac bone graft harvest and ORIF of traumatic avulsion of left ASIS. 2. Severe osteoporosis 3. Wound infection left hip 4. Anxiety Plan: Continue with PT Recommend referral to Short term Rehab Continue po pain meds and po antibiotics Ice prn pain along with Lidoderm patches Weekly ESR recommended Hiram to be removed 06/20/18. Daily dressing changes until then. Problem List: 1. Fibromyalgia 2. Asthma 3. Endometriosis 4. Allergic rhinitis 5. Depression 6. Insomnia 7. Thoracic disc herniation Attending MD Review Statement Attending Statement Attending MD Statement: discuss w/resident/PA/FILTER TANK TENDER, agreed w/resident/PA/FILTER TANK TENDER
--- NOTE | 2018-06-15 12:23 | PN- Infect Dx ---
Subjective Subjective: Afebrile. She notes increased discomfort in the left groin with ambulation. She also notes dizziness when sitting up. Objective Last 24 Hrs of Vital Signs/I&O Vital Signs Date Time Temp Pulse Resp B/P B/P Pulse O2 O2 Flow FiO2 Mean Ox Delivery Rate 06/15 928 100 118/80 06/15 0631 98.7 100 18 118/80 97 Room Air 06/14 2302 98.5 88 20 128/84 93 06/14 2125 Room Air 06/14 2026 102 130/80 06/14 1456 98.7 118 20 11880 96 Room Air Intake & Output 06/15 1600 06/15 0800 06/15 0000 Intake Total 240 Output Total 450 Balance -210 Intake, Oral 240 Number 3 3 Bowel Movements Output, Urine 450 Patient 216 lb Weight Weight Bed scale Measurement Method Physical Exam Other Physical Findings: She appears more comfortable in no acute distress Extremities left hip incision clean, with malcolm intact, with no drainage but with mild erythema and tenderness laterally Results Last 24 Hours of Lab Results: Laboratory Tests 06/15 637 Chemistry Sodium (137 - 145 mmol/L) 135 L Potassium (3.5 - 5.1 mmol/L) 4.3 Chloride (98 - 107 mmol/L) 98 Carbon Dioxide (22 - 30 mmol/L) 29 Anion Gap (5 - 16) 8 BUN (7 - 17 mg/dL) 11 Creatinine (0.5 - 1.0 mg/dL) 0.6 Estimated GFR (>60 ml/min) > 60 BUN/Creatinine Ratio (7 - 25 %) 18.3 TSH (0.270 - 4.200 uIU/mL) 0.607 Free T4 (0.64 - 1.79 ng/dL) 1.14 Hematology CBC w Diff NO MAN DIFF REQ WBC (4.8 - 10.8 /CUMM) 8.5 RBC (4.20 - 5.40 /CUMM) 3.90 L Hgb (12.0 - 16.0 G/DL) 11.2 L Hct (37 - 47 %) 33.9 L MCV (81.0 - 99.0 FL) 87.1 MCH (27.0 - 31.0 PG) 28.8 MCHC (33.0 - 37.0 G/DL) 33.0 RDW (11.5 - 14.5 %) 14.2 Plt Count (130 - 400 /CUMM) 354 MPV (7.4 - 10.4 FL) 8.6 Gran % (42.2 - 75.2 %) 77.6 H Lymphocytes % (20.5 - 51.1 %) 11.6 L Monocytes % (1.7 - 9.3 %) 8.0 Eosinophils % (0 - 5 %) 2.5 Basophils % (0.0 - 2.0 %) 0.3 Absolute Granulocytes (1.4 - 6.5 /CUMM) 6.6 H Absolute Lymphocytes (1.2 - 3.4 /CUMM) 1.0 L Absolute Monocytes (0.10 - 0.60 /CUMM) 0.7 H Absolute Eosinophils (0.0 - 0.7 /CUMM) 0.2 Absolute Basophils (0.0 - 0.2 /CUMM) 0 Last 24 Hours of Joey Results: Blood cultures June 13 negative Assessment/Plan ID Impression: Stable, with no further fevers and with her white blood cell count remaining normal, now on Ciprofloxacin, Day 5 of treatment for an infection of the left anterior iliac crest at the site of the initial bone harvesting 3 days prior to admission, now 6 days status post ORIF of a fractured anterior iliac spine and posterior cervical and thoracic laminectomies with instrumented and iliac crest morselized bone graft fusion from C5-T2. 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 The area of erythema in the lateral aspect of her incision is of unclear significance. She does have mild tenderness in this area and, if the erythema and tenderness persist, further imaging may need to be considered. Suggestion: 1. Close monitoring of her left hip incision, with consideration of imaging if her erythema/tenderness persist 2. Continue Ciprofloxacin to plan on a 4 week course of antibiotics (until July 08) 3. Weekly ESR while on antibiotics
[2018-06-15 14:34] VITALS: BP 110/70
[2018-06-15] MEDS ORDERED: METOPROLOL TART25 M1 PO (14:53)
[2018-06-15] MEDS ORDERED: OXYCODONE HCL5 M1 PO (14:54)
[2018-06-15] MEDS ORDERED: GABAPENTIN100 M2 PO (14:55)
[2018-06-15 22:00] VITALS: BP 118/60
[2018-06-16 06:44] VITALS: BP 124/66
--- NOTE | 2018-06-16 07:27 | PN- Housestaff ---
Sharon Verde 06/16/18 0726: Subjective Follow-up For: Sepsis with Gram negative rods from OR culture Sinus Tachycardia, likely due to sepsis Intractible Left flank/thigh pain with numbness after procedure S/P Anterior Cervical decompression with fusion C5-C7 with iliac crest bone graft (06/03/18) Subjective: Afebrile overnight. Patient is seen and examined this morning. Patient to be discharged today to [facility] early this morning around 9 AM. Patient states she still has some lingering pain in her cervical neck region, mostly with movement. Patient also states the Lidoderm patch for her left thigh did not do much improvement for her pain. Patient otherwise deneis any chest pain, palpitations, and shortness of breath. Patient worked with PT extensively yesterday by walking around the room and outside of her room. Patient otherwise denies any other complaints. Review of Systems Constitutional: Reports: see HPI. Objective Last 24 Hrs of Vital Signs/I&O Vital Signs Date Time Temp Pulse Resp B/P B/P Pulse O2 O2 Flow FiO2 Mean Ox Delivery Rate 06/16 0644 98.6 100 18 124/66 97 Room Air 06/15 2200 98.6 103 19 118/60 96 Room Air 06/15 2124 Room Air 06/15 2000 100 122/60 06/15 1434 98.1 101 18 110/70 94 Room Air 06/15 0928 100 118/80 Intake & Output 06/16 0800 06/16 0000 06/15 1600 Intake Total 480 600 Output Total Balance 480 600 Intake, Oral 480 600 Number 1 3 Bowel Movements Patient 227 lb Weight Physical Exam General Appearance: Alert, Oriented X3, Cooperative, No Acute Distress Skin: No Rashes, No Breakdown HEENT: Atraumatic Neck: cervical collar Cardiovascular: Regular Rate, Normal S1, Normal S2 Lungs: Clear to Auscultation Neurological: Normal Speech Extremities: No Edema Assessment/Plan Assessment: ECHO 06/15/18 - Normal left ventricular size, wall thickness and systolic function with no obvious regional wall motion abnormalities. Normal left ventricular diastolic filling pattern for age. The ejection fraction is visually estimated at 55%. 48 year old woman with multiple medical problems significant for extensive spinal orthopedic disease brought in by ambulance for left flank / left thigh pain after walking when she heard a "pop" resulting in inability to ambulate and left thigh numbness. She is s/p anterior cervical discectomy C5-7 with instrumentation and left illiac crest bone graft on 06/[address] Romo. Post operatively patient was mildly confused most likely due to anesthesia and found to be tachycardic. EKG demonstrated sinus tachycardia to the 100s and T-max 101.2. Patient met sepsis criteria through tachycardia and temperature with probable source being the gram negative infection. Patient was transfered to telemetry for further evaluation of her sinus tachycardia. Seeing the patient on telemetry floor for following problems. Sepsis with Gram negative rods from OR culture: -IV fluids with Ringer lactate at the rate of 100 mL/h; dc'd 06/13 -Vancomycin 1.5 mg BID, dc'd -Ceftaz was discontinued and ceftriaxone 2gm was started 06/13; dc'd ceftriaxone ; started Ciprofloxacin 750 mg BID -Monitoring her WBC count -Her blood cultures are positive with gram-positive cocci. -Urine cultures are positive with gram-positive cocci and gram-negative rods. -Follow-up ID recommendations; continue Ceftriaxone 2 gm qd; once ready for discharge oral Cipro 750 mg po bid for total antibiotic course of 4 weeks; monitor ESR weekly and if it remains elevated further imaging to evaluate for osteomyelitis (bone scan/MRI cervical spine and of the L illiac crest) -Last ESR 85 (elevated) on 06/13/18 -Patient will be transferred to [facility] per PT/OT recommendations requiring acute rehab placement; Address: [address] [place] [address], phone [phone], fax [phone], tax ID# [id number], we are requesting transfer to [facility] and reason for ambulance is due to two recent cervical neck surgeries requiring a soft collar and partial weight bearing of the left leg -Patient discharged to [facility] Sinus tachycardia: -Possibly due to sepsis -If she remained tachycardic continuously we will consider cardiac consult and echocardiogram. -Her TSH and T4 are within normal limits. -Patient has been Sinus tachycardia throughout the weekend, recently with a fever of 101.1; in the setting of recent surgery a suspicion for DVT/PE was considered; discussed with attending and initially ordered CT PE protocol but understood patient could not proceed with imaging due to having a triple lumen catheter and subsequently ordered a V/Q scan; patient went down for the V/Q scan but could not follow commands and refused the procedure; patient has a D-Dimer of 2663; patient receiving Enoxaparin 40 mg qd dvt prophylaxis currently -Chest CTA eventually performed with findings of no evidence of pulmonary embolism. -Femoral line was discontinued with antiseptic precautions -Metoprolol 12.5 mg bid to control heart rate -TSH and Free T4 within normal range S/P Posterior cervical / thoracic laminectomies C5-T2 with fusion: -On 06/09/2018 -Complaining of intractible Left flank/thigh pain with numbness after procedure -Continue pain medications. -Follow-up surgery recommendations; malcolm to be removed on 06/20/18 -Continue physical therapy -Lidoderm 5% patch topically to left thigh area for pain control History of spinal stenosis: -Continue pain medications and physical therapy -Diazepam 5 mg bid -Oxycodone 5 mg q4p History of fibromyalgia: -Continue pain medications and physical therapy -Psych consulted; recommended continue with Cymbalta 30 mg qd DVT prophylaxis: Mechanical and Enoxaparin 30 mg qd CODE STATUS; Full code Problem List: 1. Lower extremity pain, left 2. Sinus tachycardia Pain Ratin Pain Location: cervical area; left thigh Pain Goal: Pain 7 or less Pain Plan: prn meds Tomorrow's Labs & Rationales: routine SimonJarrodlaura 06/16/18 1140: Attending MD Review Statement Attending Statement Attending MD Statement: examined this patient, discuss w/resident/PA/BOAT MECHANIC, agreed w/resident/PA/BOAT MECHANIC, reviewed EMR data (avail), discussed with nursing, discussed with case mgmt Attending Assessment/Plan: 48 y/o female from [facility] who is s/p ACDF C5-7 with Instrumentation and left ICBG on 06/03/18, was discharged on 06/04/18 in stable condition; pt was planned for staged posterior cervical decompression/fusion planned for 06/09/18 due to severe osteoporosis discovered during her anterior procedure. Pt was readmitted on 06/06 with c/c of left hip pain. Pt on morning of admission says she was laying in bed when she felt something pop and had a sudden onset of pain in her left lateral hip. - Pelvic imaging showed- Postsurgical changes and left anterior superior iliac spine avulsion with inferior displacement. 06/09/18- pt underwent- "Posterior cervical and thoracic laminectomies C5 6 C6 7 T1 2. Instrumented fusion C567 T1 to. Lateral fusion with autologous iliac crest morselized bone graft C5 6 7 T1 tube. Placement of Pineda tongs removal of Pineda tongs use of fluoroscopy. Anterior iliac crest morselized bone harvest. ORIF of fractured anterior iliac spine left side." Sepsis with Proteus Mirabilis from OR culture and Urine cultures growing Enterococcus and Proteus - vancomycin decd and cont on ceftriaxone. -Follow-up ID recommendations. Switch to po cipro today at discharge. sepsis resolved. S/P cervical spine surgery and ORIF left hip management as per orhto. Continue physical therapy. History of fibromyalgia: Continue pain medications and physical therapy Psych consulted; started on cymbalta. d/w pscy the care plan. added fenatnyl for pain control and appreciated pain management consult. On prn oxycodone and valium now. New diagnosis of DM- will start on metformin. Pt made aware of the Diabetes diagnosis. dw/ pt the discharge plan. pt is excited about going to Rehab.
[2018-06-16] MEDS ORDERED: METFORMIN HCL500 M3 PO (07:39)
[2018-06-16] MEDS ORDERED: OXYCODONE HCL10 M2 PO (07:41)
[2018-06-16 07:57] LABS: ABSOLUTE BASOPHIL COUNT 0 /CUMM (0.0-0.2); ABSOLUTE EOSINOPHIL COUNT 0.2 /CUMM (0.0-0.7); ABSOLUTE GRANULOCYTE CT 5.9 /CUMM (1.4-6.5); ABSOLUTE MONOCYTE COUNT 0.5 /CUMM (0.10-0.60); BASOPHIL % 0.4 % (0.0-2.0); EOSINOPHIL % 2.1 % (0-5); GRANULOCYTE % 77.4 % (42.2-75.2); HEMATOCRIT 33.3 % (37-47); MEAN CORPUSCULAR HGB CONC 33.2 G/DL (33.0-37.0); MEAN CORPUSCULAR VOLUME 87.3 FL (81.0-99.0); MEAN PLATELET VOLUME 8.5 FL (7.4-10.4); PLATELET COUNT 382 /CUMM (130-400); RBC DISTRIBUTION WIDTH 13.9 % (11.5-14.5); RED BLOOD CELL CT 3.82 /CUMM (4.20-5.40); WHITE BLOOD CELL COUNT 7.6 /CUMM (4.8-10.8)
--- NOTE | 2018-06-16 08:01 | ECHOCARDIOGRAM REPORT ---
LORE MURCIA Age: 48 : 1970 Gender: F Exam Date: 06/15/2018 11:35 Exam Location: [address] [facility] Ht (in): 65 Wt (lb): 216 BSA: 2.16 BP: 118 / 80 Ordering Physician: Juan Espinoza MD Referring Physician: Juan Espinoza MD Technologist: Carlos Alberto Coffman [facility] Room Number: [id number] Indications: SVT Rhythm: Sinus Technical Quality: technically difficult/fair FINDINGS Left Ventricle Normal left ventricular size, wall thickness and systolic function with no obvious regional wall motion abnormalities. Normal left ventricular diastolic filling pattern for age. The ejection fraction is visually estimated at 55%. Right Ventricle The right ventricle is normal in size and function. Right Atrium The right atrium is normal in size. Left Atrium The left atrium is normal in size. The interatrial septum is intact. Mitral Valve The mitral valve is normal in structure and function. There is no mitral regurgitation. Aortic Valve Structurally normal aortic valve without significant sclerosis or stenosis. There is no aortic regurgitation. Tricuspid Valve The tricuspid valve is normal in structure and function. There is no tricuspid regurgitation. Pulmonic Valve Structurally normal pulmonic valve. There is no pulmonic regurgitation. Pericardium Normal pericardium without effusion. No pleural effusion. Great Vessels Normal aortic root dimension. The aortic arch and great vessels are well seen and are normal. CONCLUSIONS 1. Normal EF of 55%. Jose Ray M.D. (Electronically Signed) Final Date: 16 June 2018 08:00 MEASUREMENTS (Male / Female) Normal Values 2D ECHO LV Diastolic Diameter PLAX 4.5 cm 4.2 - 5.9 / 3.9 - 5.3 cm LV Systolic Diameter PLAX 2.4 cm 2.1 - 4.0 cm LV Fractional Shortening PLAX 46.7 % 25 - 46 % LV Ejection Fraction 2D Teich 78.2 % IVS Diastolic Thickness 1.0 cm LVPW Diastolic Thickness 1.0 cm LV Relative Wall Thickness 0.4 RV Internal Dim ED PLAX 2.4 cm 1.9 - 3.8 cm LVOT Diameter 1.7 cm Aortic Root Diameter 2.5 cm LA Systolic Diameter LX 2.9 cm 3.0 - 4.0 / 2.7 - 3.8 cm LA Volume 20.0 cm 18 - 58 / 22 - 52 cm Ascending Aorta Diameter 2.8 cm DOPPLER AV Peak Velocity 124.0 cm/s AV Peak Gradient 6.2 mmHg AV Mean Velocity 79.3 cm/s AV Mean Gradient 3.0 mmHg AV Velocity Time Integral 18.1 cm LVOT Peak Velocity 101.0 cm/s LVOT Peak Gradient 4.1 mmHg LVOT Mean Velocity 59.6 cm/s LVOT Mean Gradient 2.0 mmHg LVOT Velocity Time Integral 19.7 cm LVOT Stroke Volume 44.7 cm AV Area Cont Eq vti 2.5 cm AV Area Cont Eq pk 1.8 cm MV Peak Velocity 99.3 cm/s MV Peak Gradient 3.9 mmHg MV Mean Velocity 60.5 cm/s MV Mean Gradient 2.0 mmHg Mitral E Point Velocity 86.4 cm/s Mitral A Point Velocity 64.2 cm/s Mitral E to A Ratio 1.3 MV PHT Velocity 102.0 cm/s MV Deceleration Carver 661.0 cm/s MV Pressure Half Time 46.3 ms MV Area PHT 4.8 cm MV Deceleration Time 264.0 ms PV Peak Velocity 102.0 cm/s PV Peak Gradient 4.2 mmHg PV Mean Velocity 76.4 cm/s PV Mean Gradient 3.0 mmHg PV Velocity Time Integral 21.2 cm LV E' Lateral Velocity 10.2 cm/s Mitral E to LV E' Lateral Ratio 8.5 LV E' Septal Velocity 8.7 cm/s Mitral E to LV E' Septal Ratio 10.0
--- NOTE | 2018-06-16 10:53 | PN- Infect Dx ---
Subjective Subjective: Afebrile. She feels well but still notes discomfort in the left groin/hip. Objective Last 24 Hrs of Vital Signs/I&O Vital Signs Date Time Temp Pulse Resp B/P B/P Pulse O2 O2 Flow FiO2 Mean Ox Delivery Rate 06/16 0808 100 124/66 06/16 0644 98.6 100 18 124/66 97 Room Air 06/15 2200 98.6 103 19 118/60 96 Room Air 06/15 2124 Room Air 06/15 2000 100 122/60 06/15 1434 98.1 101 18 110/70 94 Room Air Intake & Output 06/16 1600 06/16 0800 06/16 0000 Intake Total 480 Output Total Balance 480 Intake, Oral 480 Number 1 Bowel Movements Patient 227 lb Weight Physical Exam Other Physical Findings: She appears comfortable in no acute distress Skin diaphoretic with no rash Neck collar remains in place Extremities left hip incision clean, with no erythema or drainage Results Last 24 Hours of Lab Results: Laboratory Tests 06/16 0630 Chemistry Sodium (137 - 145 mmol/L) 135 L Potassium (3.5 - 5.1 mmol/L) 4.6 Chloride (98 - 107 mmol/L) 98 Carbon Dioxide (22 - 30 mmol/L) 28 Anion Gap (5 - 16) 10 BUN (7 - 17 mg/dL) 12 Creatinine (0.5 - 1.0 mg/dL) 0.6 Estimated GFR (>60 ml/min) > 60 BUN/Creatinine Ratio (7 - 25 %) 20.0 Hematology CBC w Diff NO MAN DIFF REQ WBC (4.8 - 10.8 /CUMM) 7.6 RBC (4.20 - 5.40 /CUMM) 3.82 L Hgb (12.0 - 16.0 G/DL) 11.1 L Hct (37 - 47 %) 33.3 L MCV (81.0 - 99.0 FL) 87.3 MCH (27.0 - 31.0 PG) 29.0 MCHC (33.0 - 37.0 G/DL) 33.2 RDW (11.5 - 14.5 %) 13.9 Plt Count (130 - 400 /CUMM) 382 MPV (7.4 - 10.4 FL) 8.5 Gran % (42.2 - 75.2 %) 77.4 H Lymphocytes % (20.5 - 51.1 %) 13.0 L Monocytes % (1.7 - 9.3 %) 7.1 Eosinophils % (0 - 5 %) 2.1 Basophils % (0.0 - 2.0 %) 0.4 Absolute Granulocytes (1.4 - 6.5 /CUMM) 5.9 Absolute Lymphocytes (1.2 - 3.4 /CUMM) 1.0 L Absolute Monocytes (0.10 - 0.60 /CUMM) 0.5 Absolute Eosinophils (0.0 - 0.7 /CUMM) 0.2 Absolute Basophils (0.0 - 0.2 /CUMM) 0 Last 24 Hours of Joey Results: Blood cultures x 2 June 13 negative Assessment/Plan ID Impression: Stable, with temperatures and white blood cell count remaining normal, on Ciprofloxacin, Day 6 of treatment for an infection of the left anterior iliac crest at the site of the initial bone harvesting 3 days prior to admission, now 1 week status post ORIF of a fractured anterior iliac spine and posterior cervical and thoracic laminectomies with instrumented and iliac crest morselized bone graft fusion of C5-T2. 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 Suggestion: 1. Continue Ciprofloxacin to complete a 4 week course of treatment (until July 08) 2. Weekly ESR while on antibiotics
[2018-06-16 11:34] VITALS: BP 124/66
== END 2018-06-16 12:45 | DRG 471 ==
LOC: ERH 14:49 → 2NA 19:23 → ERHI 19:23 → ENRESERV 20:32 → ENTRNSPT 21:09 → EDTRNSPTSTS 21:29 → EDTRNSPT 21:48 → 2NA 22:10 → CMPTRNSPT 22:25 → 2NA 06-07 08:44 → ENTRNSPT 06-09 15:31 → EDTRNSPTSTS 06-09 15:38 → CMPTRNSPT 06-09 15:58 → 1NO 06-10 13:47 → ENPENDDIS 06-16 09:52 → 1NO 06-16 12:45
PROVIDERS: Emergency Medicine; Hospitalist; Internal Medicine Interventional Cardiology; Student in an Organized Health Care Education/Training Program
PROC: 00NX0ZZ Release Thoracic Spinal Cord, Open Approach (ICD-10-PCS; principal; 2018-06-09)
PROC: 00NW0ZZ Release Cervical Spinal Cord, Open Approach (ICD-10-PCS; principal; 2018-06-09)
PROC: 07DR3ZZ Extraction of Iliac Bone Marrow, Percutaneous Approach (ICD-10-PCS; principal; 2018-06-09)
PROC: 0QS304Z Reposition Left Pelvic Bone with Internal Fixation Device, Open Approach (ICD-10-PCS; principal; 2018-06-09)
PROC: 0QB30ZZ Excision of Left Pelvic Bone, Open Approach (ICD-10-PCS; principal; 2018-06-09)
PROC: 0RG4071 Fusion of Cervicothoracic Vertebral Joint with Autologous Tissue Substitute, Posterior Approach, Posterior Column, Open Approach (ICD-10-PCS; principal; 2018-06-09)
PROC: 0RB30ZZ Excision of Cervical Vertebral Disc, Open Approach (ICD-10-PCS; principal; 2018-06-09)
PROC: 0RB90ZZ Excision of Thoracic Vertebral Disc, Open Approach (ICD-10-PCS; principal; 2018-06-09)
PROC: 06HM33Z Insertion of Infusion Device into Right Femoral Vein, Percutaneous Approach (ICD-10-PCS; principal; 2018-06-09)
PROC: 0RB50ZZ Excision of Cervicothoracic Vertebral Disc, Open Approach (ICD-10-PCS; principal; 2018-06-09)
PROC: 0RG2071 Fusion of 2 or more Cervical Vertebral Joints with Autologous Tissue Substitute, Posterior Approach, Posterior Column, Open Approach (ICD-10-PCS; principal; 2018-06-09)
PROC: 0QU307Z Supplement Left Pelvic Bone with Autologous Tissue Substitute, Open Approach (ICD-10-PCS; principal; 2018-06-09)
DX: S32.391A Other fracture of right ilium, initial encounter for closed fracture (principal); A41.50 Gram-negative sepsis, unspecified; T81.4XXA Infection following a procedure, initial encounter; M86.9 Osteomyelitis, unspecified; M48.03 Spinal stenosis, cervicothoracic region; F32.9 Major depressive disorder, single episode, unspecified; G47.00 Insomnia, unspecified; J45.909 Unspecified asthma, uncomplicated; N80.9 Endometriosis, unspecified; M79.7 Fibromyalgia; Z98.1 Arthrodesis status; E66.9 Obesity, unspecified; Z88.0 Allergy status to penicillin; F41.9 Anxiety disorder, unspecified; R00.0 Tachycardia, unspecified; E11.9 Type 2 diabetes mellitus without complications; B96.4 Proteus (mirabilis) (morganii) as the cause of diseases classified elsewhere; B95.2 Enterococcus as the cause of diseases classified elsewhere; W01.190A Fall on same level from slipping, tripping and stumbling with subsequent striking against furniture, initial encounter; M81.8 Other osteoporosis without current pathological fracture; Y92.091 Bathroom in other non-institutional residence as the place of occurrence of the external cause
CPT/HCPCS: 1NP; 2NAP; 2NASP; 72146; 87070; 87075; 36415; 36592; 71045; 71046; 76000; 81001; 81003; 82436; 87040; 87086; 87147; 93005; 93010; 93306; 93970; 96374; 97110-GO; 97116-GO; 97162-GP; 97164-GP; 97166-GO; 97530-GO; J0131; J0696; J0713; J1200; J1650; J1885; J2405; J3250; J3360; J3370; J3490; J7040; J7120